=== PATIENT | female | born 1975 | race Caucasian/White ===

== ENCOUNTER 2018-08-20 16:53 | Emergency (ER) | payer MEDICAID ==
--- NOTE | 2018-08-20 17:04 | EDM.PDOCBH ---
ED HPI GENERAL MEDICAL PROBLEM - General Chief Complaint: Behavioral/Psych Stated Complaint: MENTAL HEALTH/MEDICAL CLEAR. Time Seen by Provider: 08/20/18 17:03 Source of Information: Reports: Patient History Limitations: Reports: No Limitations - History of Present Illness INITIAL COMMENTS - FREE TEXT/NARRATIVE: HISTORY AND PHYSICAL: History of present illness: Patient is a 42-year-old female who is brought to the emergency room by EMS with suicidal ideations. Today is the 9 year anniversary of her son's . She states that she has had thoughts of suicide for the past year and worsened over the past 2 months. [place] she states she wanted to take a knife and slit her wrists and find medications to overdose on. Law enforcement and EMS brought the patient to the emergency room. She is tearful but cooperative. She states that if she were to leave our facility she would "find a way to do it". She does have a history of depression and previous suicide attempts. Review of systems: As per history of present illness and below otherwise all systems reviewed and negative. Past medical history: As per history of present illness and as reviewed below otherwise noncontributory. Surgical history: As per history of present illness and as reviewed below otherwise noncontributory. Social history: See social history for further information Family history: As per history of present illness and as reviewed below otherwise noncontributory. Physical exam: General: Well-developed and well-nourished 42-year-old female. Alert and oriented. Tearful, but nontoxic appearing and in no acute distress. HEENT: Atraumatic, normocephalic, pupils equal and reactive bilaterally, negative for conjunctival pallor or scleral icterus, mucous membranes moist, TMs normal bilaterally, throat clear, neck supple, nontender, trachea midline. No drooling or trismus noted. No meningeal signs. No hot potato voice noted. Lungs: Clear to auscultation, breath sounds equal bilaterally, chest nontender. Heart: S1S2, regular rate and rhythm without overt murmur Abdomen: Soft, nondistended, nontender. Negative for masses or hepatosplenomegaly. Negative for costovertebral tenderness. Pelvis: Stable nontender. Genitourinary: Deferred. Rectal: Deferred. Skin: Intact, warm, dry. No lesions or rashes noted. Extremities: Atraumatic, negative for cords or calf pain. Neurovascular unremarkable. Neuro: Awake, alert, oriented. Cranial nerves II through XII unremarkable. Cerebellum unremarkable. Motor and sensory unremarkable throughout. Exam nonfocal. Notes: [facility] in [place] was called, they do not have any beds available at this time. Dr Coelho, psychiatrist at , he is agreeable to accepting this patient. Patient will come by ground EMS. Patient is aware of this and cooperative. She states she no she needs some psych get her Help denies any further questions or concerns at this time. Patient is eating at the bedside. She does request Tylenol for her headache. Supportive care measures were reviewed and discussed. Voices understanding and is agreeable to plan of care. Denies any further questions or concerns at this time. Diagnostics: CBC, CMP, UA, urine , salicylate, acetaminophen, drug screening Therapeutics: None Impression: Suicidal ideation History of depression Plan: Transfer to via ground EMS. Definitive disposition and diagnosis as appropriate pending reevaluation and review of above. - Related Data Allergies Allergy/AdvReac Type Severity Reaction Status Date / Time acetaminophen [From [place]] Allergy Hives Verified 08/20/18 17:08 aspirin Allergy Bleeding Verified 08/20/18 17:08 hydrocodone [From [place]] Allergy Hives Verified 08/20/18 17:08 ibuprofen Allergy Bleeding Verified 08/20/18 17:08 metformin Allergy Vomiting Verified 08/20/18 17:08 morphine Allergy Headache Verified 08/20/18 17:08 Penicillins Allergy Hives Verified 08/20/18 17:08 Home Meds: Home Meds Dextroamphetamine/Amphetamine [Adderall] 30 mg PO DAILY 08/20/18 [History] Escitalopram Oxalate [Lexapro] 20 mg PO BEDTIME 08/20/18 [History] lamoTRIgine [Lamictal XR] 100 mg PO DAILY 08/20/18 [History] ED ROS GENERAL - Review of Systems Review Of Systems: ROS reveals no pertinent complaints other than HPI. ED EXAM, BEHAVIORAL HEALTH - Physical Exam Exam: See Below COURSE, BEHAVIORAL HEALTH COMP - Course Vital Signs: Last Vital Signs Temp 98.7 F 08/20/18 17:00 Pulse 95 08/20/18 17:46 Resp 18 08/20/18 17:46 BP 159/104 H 08/20/18 17:46 Pulse Ox 95 08/20/18 17:46 Orders, Labs, Meds: Active Orders 24 hr Category Date Time Status EKG 12 Lead [EKG Documentation Completion] [RC] STAT Care 08/20/18 17:49 Active Laboratory Tests 08/20/18 08/20/18 08/20/18 Range/Units 17:17 17:17 17:17 WBC 8.97 (4.0-11.0) K/uL RBC 4.63 (4.30-5.90) M/uL Hgb 14.2 (12.0-16.0) g/dL Hct 42.1 (36.0-46.0) % MCV 90.9 (80.0-98.0) fL MCH 30.7 (27.0-32.0) pg MCHC 33.7 (31.0-37.0) g/dL RDW Std Deviation 46.6 (28.0-62.0) fl RDW Coeff of Clement 14 (11.0-15.0) % Plt Count 281 (150-400) K/uL MPV 10.70 (7.40-12.00) fL Neut % (Auto) 63.2 (48.0-80.0) % Lymph % (Auto) 30.4 (16.0-40.0) % Gonzales % (Auto) 4.2 (0.0-15.0) % Eos % (Auto) 2.0 (0.0-7.0) % Baso % (Auto) 0.2 (0.0-1.5) % Neut # (Auto) 5.7 (1.4-5.7) K/uL Lymph # (Auto) 2.7 H (0.6-2.4) K/uL Gonzales # (Auto) 0.4 (0.0-0.8) K/uL Eos # (Auto) 0.2 (0.0-0.7) K/uL Baso # (Auto) 0.0 (0.0-0.1) K/uL Nucleated RBC % 0.0 /100WBC Nucleated RBCs # 0 K/uL Sodium 137 (136-145) mmol/L Potassium 3.7 (3.5-5.1) mmol/L Chloride 104 (98-107) mmol/L Carbon Dioxide 23.9 (21.0-32.0) mmol/L BUN 8 (7.0-18.0) mg/dL Creatinine 0.7 (0.6-1.0) mg/dL Est Cr Clr Drug Dosing 82.80 mL/min Estimated GFR (MDRD) > 60.0 ml/min Glucose 138 H (74-106) mg/dL Calcium 9.6 (8.5-10.1) mg/dL Total Bilirubin 0.5 (0.2-1.0) mg/dL AST 19 (15-37) IU/L ALT 22 (14-63) IU/L Alkaline Phosphatase 68 (46-116) U/L Total Protein 7.5 (6.4-8.2) g/dL Albumin 3.9 (3.4-5.0) g/dL Globulin 3.6 (2.6-4.0) g/dL Albumin/Globulin Ratio 1.1 (0.9-1.6) Urine Color Urine Appearance Urine pH (5.0-8.0) Ur Specific [place] (1.001-1.035) Urine Protein (NEGATIVE) mg/dL Urine Glucose (UA) (NEGATIVE) mg/dL Urine Ketones (NEGATIVE) mg/dL Urine Occult Blood (NEGATIVE) Urine Nitrite (NEGATIVE) Urine Bilirubin (NEGATIVE) Urine Urobilinogen (<2.0) EU/dL Ur Leukocyte Esterase (NEGATIVE) Urine RBC (0-2/HPF) Urine WBC (0-5/HPF) Ur Epithelial Cells (NONE-FEW) Calcium Oxalate Crystal (NEGATIVE) Urine Bacteria (NEGATIVE) Urine Mucus (NONE-MOD) Urine HCG, Qual (NEGATIVE) Salicylates 4.3 (0-20) mg/dL Urine Opiates Screen (NEGATIVE) Ur Oxycodone Screen (NEGATIVE) Urine Methadone Screen (NEGATIVE) Acetaminophen 0.0 ug/mL Ur Barbiturates Screen (NEGATIVE) Ur Phencyclidine Scrn (NEGATIVE) Ur Amphetamine Screen (NEGATIVE) U Methamphetamines Scrn (NEGATIVE) U Benzodiazepines Scrn (NEGATIVE) U Cocaine Metab Screen (NEGATIVE) U Marijuana (THC) Screen (NEGATIVE) Ethyl Alcohol <3 mg/dL 08/20/18 08/20/18 08/20/18 Range/Units 17:25 17:25 17:25 WBC (4.0-11.0) K/uL RBC (4.30-5.90) M/uL Hgb (12.0-16.0) g/dL Hct (36.0-46.0) % MCV (80.0-98.0) fL MCH (27.0-32.0) pg MCHC (31.0-37.0) g/dL RDW Std Deviation (28.0-62.0) fl RDW Coeff of Clement (11.0-15.0) % Plt Count (150-400) K/uL MPV (7.40-12.00) fL Neut % (Auto) (48.0-80.0) % Lymph % (Auto) (16.0-40.0) % Gonzales % (Auto) (0.0-15.0) % Eos % (Auto) (0.0-7.0) % Baso % (Auto) (0.0-1.5) % Neut # (Auto) (1.4-5.7) K/uL Lymph # (Auto) (0.6-2.4) K/uL Gonzales # (Auto) (0.0-0.8) K/uL Eos # (Auto) (0.0-0.7) K/uL Baso # (Auto) (0.0-0.1) K/uL Nucleated RBC % /100WBC Nucleated RBCs # K/uL Sodium (136-145) mmol/L Potassium (3.5-5.1) mmol/L Chloride (98-107) mmol/L Carbon Dioxide (21.0-32.0) mmol/L BUN (7.0-18.0) mg/dL Creatinine (0.6-1.0) mg/dL Est Cr Clr Drug Dosing mL/min Estimated GFR (MDRD) ml/min Glucose (74-106) mg/dL Calcium (8.5-10.1) mg/dL Total Bilirubin (0.2-1.0) mg/dL AST (15-37) IU/L ALT (14-63) IU/L Alkaline Phosphatase (46-116) U/L Total Protein (6.4-8.2) g/dL Albumin (3.4-5.0) g/dL Globulin (2.6-4.0) g/dL Albumin/Globulin Ratio (0.9-1.6) Urine Color YELLOW Urine Appearance HAZY Urine pH 5.5 (5.0-8.0) Ur Specific [place] >= 1.030 (1.001-1.035) Urine Protein TRACE H (NEGATIVE) mg/dL Urine Glucose (UA) NEGATIVE (NEGATIVE) mg/dL Urine Ketones NEGATIVE (NEGATIVE) mg/dL Urine Occult Blood TRACE-LYSED H (NEGATIVE) Urine Nitrite NEGATIVE (NEGATIVE) Urine Bilirubin NEGATIVE (NEGATIVE) Urine Urobilinogen 0.2 (<2.0) EU/dL Ur Leukocyte Esterase NEGATIVE (NEGATIVE) Urine RBC 0-3 (0-2/HPF) Urine WBC 0-5 (0-5/HPF) Ur Epithelial Cells MODERATE (NONE-FEW) Calcium Oxalate Crystal FEW (NEGATIVE) Urine Bacteria FEW (NEGATIVE) Urine Mucus LIGHT (NONE-MOD) Urine HCG, Qual NEGATIVE (NEGATIVE) Salicylates (0-20) mg/dL Urine Opiates Screen NEGATIVE (NEGATIVE) Ur Oxycodone Screen NEGATIVE (NEGATIVE) Urine Methadone Screen NEGATIVE (NEGATIVE) Acetaminophen ug/mL Ur Barbiturates Screen NEGATIVE (NEGATIVE) Ur Phencyclidine Scrn NEGATIVE (NEGATIVE) Ur Amphetamine Screen NEGATIVE (NEGATIVE) U Methamphetamines Scrn NEGATIVE (NEGATIVE) U Benzodiazepines Scrn NEGATIVE (NEGATIVE) U Cocaine Metab Screen NEGATIVE (NEGATIVE) U Marijuana (THC) Screen NEGATIVE (NEGATIVE) Ethyl Alcohol mg/dL Departure - Departure Time of Disposition: 18:16 Disposition: DC/Tfer to Psych Hosp/Unit 65 Clinical Impression: Suicidal ideation, Depressive disorder - Discharge Information Referrals: PCP,Unknown [Primary Care Provider] - Forms: ED Department Discharge - My Orders Last 24 Hours: My Active Orders 08/20/18 17:49 EKG 12 Lead [EKG Documentation Completion] [RC] STAT - Assessment/Plan Last 24 Hours: My Active Orders 08/20/18 17:49 EKG 12 Lead [EKG Documentation Completion] [RC] STAT
[2018-08-20 17:59] LABS: CHLORIDE,CL 104 mmol/L (98-107); SODIUM,NA 137 mmol/L (136-145)
[2018-08-20] MEDS ORDERED: Acetaminophen 500 MG Tab PO ONE (18:16)
== END 2018-08-20 20:00 ==
LOC: MW.ED 16:53
DX: F32.9 Major depressive disorder, single episode, unspecified (principal); Z79.899 Other long term (current) drug therapy
CPT/HCPCS: 36415; 80053; 80305; 81001; 81025; 85025; 93005; 99285; A9270; G0480; 99284

== ENCOUNTER 2019-08-22 17:23 | Emergency (ER) | payer MEDICAID, MEDICARE ==
--- NOTE | 2019-08-22 17:41 | EDM.PDOC ---
ED HPI GENERAL MEDICAL PROBLEM - General Chief Complaint: General Stated Complaint: MEDICAL CLEARANCE Time Seen by Provider: 08/22/19 17:29 Source of Information: Reports: Patient History Limitations: Reports: No Limitations - History of Present Illness INITIAL COMMENTS - FREE TEXT/NARRATIVE: HISTORY AND PHYSICAL: History of present illness: Patient is a 43-year-old female who presents to the emergency room with law enforcement for medical clearance exam. Patient states that she does not want to be here and declines needing an exam. Law enforcement states they have no concerns other than the patient states she might be diabetic. Patient reports that she was told a few years ago that she should be on metformin, although does not take diabetic medications or check her blood sugar for any reasons. She states she is in good health and has no complaints or concerns. Review of systems: As per history of present illness and below otherwise all systems reviewed and negative. Past medical history: As per history of present illness and as reviewed below otherwise noncontributory. Surgical history: As per history of present illness and as reviewed below otherwise noncontributory. Social history: See social history for further information Family history: As per history of present illness and as reviewed below otherwise noncontributory. Physical exam: General: HEENT: Atraumatic, normocephalic, pupils equal and reactive bilaterally, negative for conjunctival pallor or scleral icterus, mucous membranes moist, trachea midline. No drooling or trismus noted. No meningeal signs. No hot potato voice noted. Lungs: Clear to auscultation, breath sounds equal bilaterally, chest nontender. Heart: S1S2, regular rate and rhythm without overt murmur Abdomen: Soft, nondistended, nontender. Pelvis: Stable nontender. Skin: Intact, warm, dry. No lesions or rashes noted. Extremities: Atraumatic, moves all extremities per self without difficulty or deficits, negative for cords or calf pain. Neurovascular unremarkable. Neuro: Awake, alert, oriented. Cranial nerves II through XII unremarkable. Cerebellum unremarkable. Motor and sensory unremarkable throughout. Exam nonfocal. Notes: Patient has her home medications with her to bring with to [facility]. Her vital signs are stable. She declines wanting any further medical evaluation or treatment. Supportive care measures were reviewed and discussed. Voices understanding and is agreeable to plan of care. Denies any further questions or concerns at this time. Diagnostics: None Therapeutics: None Prescription: None Impression: Encounter for medical screening exam Plan: 1. Take your home medications as prescribed. 2. Follow-up with your primary care provider as we discussed. 3. Turn to the ED as needed and as discussed. Definitive disposition and diagnosis as appropriate pending reevaluation and review of above. right shoulder Pain Score (Numeric/FACES): 5 - Related Data Allergies Allergy/AdvReac Type Severity Reaction Status Date / Time acetaminophen [From [place]] Allergy Hives Verified 08/22/19 17:34 aspirin Allergy Bleeding Verified 08/22/19 17:34 banana Allergy Hives Verified 08/22/19 17:34 hydrocodone [From [place]] Allergy Hives Verified 08/22/19 17:34 ibuprofen Allergy Bleeding Verified 08/22/19 17:34 latex Allergy Hives Verified 08/22/19 17:34 metformin Allergy Vomiting Verified 08/22/19 17:34 morphine Allergy Headache Verified 08/22/19 17:34 Penicillins Allergy Hives Verified 08/22/19 17:34 tape Allergy Hives Uncoded 08/22/19 17:34 Home Meds: Home Meds Dextroamphetamine/Amphetamine [Adderall] 30 mg PO BID 08/20/18 [History] Escitalopram Oxalate [Lexapro] 20 mg PO BEDTIME 08/20/18 [History] lamoTRIgine [Lamictal XR] 100 mg PO DAILY 08/20/18 [History] Losartan/Hydrochlorothiazide [Losartan-HCTZ 50-12.5 MG] 1 tab PO DAILY 08/22/19 [History] traZODone HCl [Trazodone HCl] 50 mg PO BEDTIME 08/22/19 [History] Past Medical History Cardiovascular History: Reports: Hypertension Gastrointestinal History: Reports: GI Bleed [employer] History: Reports: Psychiatric History: Reports: Anxiety, Depression, PTSD Endocrine/Metabolic History: Reports: Diabetes, Type II Hematologic History: Reports: Anemia, Blood Transfusion(s) - Infectious Disease History Infectious Disease History: Reports: Chicken Pox - Past Surgical History GI Surgical History: Reports: Cholecystectomy, Hernia Repair/Other Social & Family History - Family History Family Medical History: Noncontributory - Tobacco Use Smoking Status *Q: Current Every Day Smoker Years of Tobacco use: 20 Packs/Tins Daily: 1 - Recreational Drug Use Recreational Drug Use: No ED ROS GENERAL - Review of Systems Review Of Systems: Comprehensive ROS is negative, except as noted in HPI. ED EXAM, GENERAL - Physical Exam Exam: See Below (See dictation) Course - Vital Signs Last Recorded V/S: Last Vital Signs Temp 96.6 F L 08/22/19 17:31 Pulse 109 H 08/22/19 17:31 Resp 18 08/22/19 17:31 BP 142/80 H 08/22/19 17:31 Pulse Ox 98 08/22/19 17:31 Departure - Departure Time of Disposition: 17:58 Disposition: Home, Self-Care 01 Clinical Impression: Encounter for medical screening examination - Discharge Information Forms: ED Department Discharge Additional Instructions: The following information is given to patients seen in the emergency department who are being discharged to home. This information is to outline your options for follow-up care. We provide all patients seen in our emergency department with a follow-up referral. The need for follow-up, as well as the timing and circumstances, are variable depending upon the specifics of your emergency department visit. If you don't have a primary care physician on staff, we will provide you with a referral. We always advise you to contact your personal physician following an emergency department visit to inform them of the circumstance of the visit and for follow-up with them and/or the need for any referrals to a consulting specialist. The emergency department will also refer you to a specialist when appropriate. This referral assures that you have the opportunity for follow-up care with a specialist. All of these measure are taken in an effort to provide you with optimal care, which includes your follow-up. Under all circumstances we always encourage you to contact your private physician who remains a resource for coordinating your care. When calling for follow-up care, please make the office aware that this follow-up is from your recent emergency room visit. If for any reason you are refused follow-up, please contact the [facility] Emergency Department at and asked to speak to the emergency department charge nurse. [facility] [address] [place] [id number] [address] 1. Take your home medications as prescribed. 2. Follow-up with your primary care provider as we discussed. 3. Turn to the ED as needed and as discussed. Sepsis Event Note - Evaluation Sepsis Screening Result: No Definite Risk - Focused Exam Vital Signs: Vital Signs Temp Pulse Resp BP Pulse Ox 08/22/19 17:31 96.6 F L 109 H 18 142/80 H 98 Date Exam was Performed: 08/22/19 Time Exam was Performed: 17:59
== END 2019-08-22 18:09 | disposition home or self-care (01) ==
LOC: MW.ED 17:23
DX: Z02.89 Encounter for other administrative examinations (principal); I10 Essential (primary) hypertension; E11.9 Type 2 diabetes mellitus without complications; F41.9 Anxiety disorder, unspecified; F32.9 Major depressive disorder, single episode, unspecified; F17.210 Nicotine dependence, cigarettes, uncomplicated; Z88.8 Allergy status to other drugs, medicaments and biological substances; Z91.040 Latex allergy status; Z88.0 Allergy status to penicillin; Z91.018 Allergy to other foods; Z88.5 Allergy status to narcotic agent; Z79.899 Other long term (current) drug therapy
CPT/HCPCS: 99283

== ENCOUNTER 2020-04-06 13:54 | Emergency (ER) | payer MEDICARE ==
[2020-04-06] MEDS ORDERED: Sodium Chloride 0.9% 2.5 ML Syringe FLUSH PRN (14:22)
[2020-04-06] MEDS ORDERED: Sodium Chloride 0.9% 10 ML Syringe FLUSH PRN (14:22)
--- NOTE | 2020-04-06 14:26 | EDM.PDOC ---
ED HPI GENERAL MEDICAL PROBLEM - General Chief Complaint: Abdominal Pain Stated Complaint: ABDOMINAL PAIN Time Seen by Provider: 04/06/20 14:01 Source of Information: Reports: Patient History Limitations: Reports: No Limitations - History of Present Illness INITIAL COMMENTS - FREE TEXT/NARRATIVE: 44F PMHx depression, suicide attempts, anxiety, chronic abdominal pain, umbilical hernia repair roughly 4 months ago presents for acute exacerbation of chronic abdominal pain. Patient states "I just can't take it anymore" and "the pain is really making my depression worse". The pain is diffuse and worse in RLQ abdomen. Not any worse or better w/ food. Associated with nausea without vomiting. Worse with movement and pressing in on it. No urinary symptoms but was told at an outside ER last week that she had a UTI but they didn't give her antibiotics. No fevers. ABD Pain Score (Numeric/FACES): 10 - Related Data Allergies Allergy/AdvReac Type Severity Reaction Status Date / Time acetaminophen [From Iselin] Allergy Hives Verified 04/06/20 14:24 aspirin Allergy Bleeding Verified 04/06/20 14:24 banana Allergy Hives Verified 04/06/20 14:24 hydrocodone [From Iselin] Allergy Hives Verified 04/06/20 14:24 ibuprofen Allergy Bleeding Verified 04/06/20 14:24 latex Allergy Hives Verified 04/06/20 14:24 metformin Allergy Vomiting Verified 04/06/20 14:24 morphine Allergy Headache Verified 04/06/20 14:24 Penicillins Allergy Hives Verified 04/06/20 14:24 tape Allergy Hives Uncoded 04/06/20 14:24 Home Meds: Home Meds Dextroamphetamine/Amphetamine [Adderall] 30 mg PO BID 08/20/18 [History] Escitalopram Oxalate [Lexapro] 20 mg PO BEDTIME 08/20/18 [History] lamoTRIgine [Lamictal XR] 100 mg PO DAILY 08/20/18 [History] Losartan/Hydrochlorothiazide [Losartan-HCTZ 50-12.5 MG] 1 tab PO DAILY 08/22/19 [History] traZODone HCl [Trazodone HCl] 50 mg PO BEDTIME 08/22/19 [History] Sulfamethoxazole/Trimethoprim [Bactrim Ds Tablet] 1 each PO BID 7 Days #14 tablet 04/06/20 [Rx] Past Medical History Cardiovascular History: Reports: Hypertension Gastrointestinal History: Reports: GI Bleed 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: Psychiatric History: Reports: Bipolar, Depression Endocrine/Metabolic History: Reports: Diabetes, Type II Hematologic History: Reports: Anemia, Blood Transfusion(s) - Infectious Disease History Infectious Disease History: Reports: Chicken Pox - Past Surgical History GI Surgical History: Reports: Hernia Repair/Other Social & Family History - Family History Family Medical History: Noncontributory ED ROS GENERAL - Review of Systems Review Of Systems: Comprehensive ROS is negative, except as noted in HPI. ED EXAM, GENERAL - Physical Exam Exam: See Below Exam Limited By: No Limitations General Appearance: Alert, WD/WN, No Apparent Distress, Anxious Ears: Normal External Exam Nose: Normal Inspection Throat/Mouth: Normal Voice, No Airway Compromise Head: Atraumatic, Normocephalic Neck: Normal Inspection Respiratory/Chest: No Respiratory Distress, No Accessory Muscle Use Cardiovascular: Normal Peripheral Pulses GI/Abdominal: Soft, Non-Tender, No Distention (Female) Exam: Normal External Exam Rectal (Female) Exam: Normal Exam Back Exam: Normal Inspection Extremities: Normal Inspection Neurological: Alert Psychiatric: Normal Affect, Anxious Skin Exam: Warm, Dry, Intact, Normal Color Course - Vital Signs Last Recorded V/S: Last Vital Signs Temp 97.2 F 04/06/20 14:21 Pulse 92 04/06/20 14:21 Resp 16 04/06/20 14:21 BP 164/74 H 04/06/20 14:21 Pulse Ox 96 04/06/20 14:21 - Orders/Labs/Meds Orders: Active Orders 24 hr Category Date Time Status Sodium Chloride 0.9% [Saline Flush] Med 04/06/20 14:22 Active 10 ml FLUSH ASDIRECTED PRN Sodium Chloride 0.9% [Saline Flush] Med 04/06/20 14:22 Active 2.5 ml FLUSH ASDIRECTED PRN Saline Lock Insert [OM.PC] Stat Oth 04/06/20 14:22 Ordered Medication Orders Sodium Chloride (Saline Flush) 10 ml FLUSH ASDIRECTED PRN PRN Reason: Keep Vein Open Last Admin: 04/06/20 14:32 Dose: 10 ml Documented by: MARYAM Sodium Chloride (Saline Flush) 2.5 ml FLUSH ASDIRECTED PRN PRN Reason: Keep Vein Open Last Admin: 04/06/20 14:32 Dose: 2.5 ml Documented by: MARYAM Labs: Laboratory Tests 04/06/20 04/06/20 04/06/20 Range/Units 14:30 14:30 14:30 WBC 13.18 H (4.0-11.0) K/uL RBC 4.78 (4.30-5.90) M/uL Hgb 14.3 (12.0-16.0) g/dL Hct 44.0 (36.0-46.0) % MCV 92.1 (80.0-98.0) fL MCH 29.9 (27.0-32.0) pg MCHC 32.5 (31.0-37.0) g/dL RDW Std Deviation 47.3 (28.0-62.0) fl RDW Coeff of Clement 14 (11.0-15.0) % Plt Count 327 (150-400) K/uL MPV 10.50 (7.40-12.00) fL Neut % (Auto) 71.9 (48.0-80.0) % Lymph % (Auto) 20.9 (16.0-40.0) % [place] % (Auto) 4.6 (0.0-15.0) % Eos % (Auto) 2.4 (0.0-7.0) % Baso % (Auto) 0.2 (0.0-1.5) % Neut # (Auto) 9.5 H (1.4-5.7) K/uL Lymph # (Auto) 2.8 H (0.6-2.4) K/uL [place] # (Auto) 0.6 (0.0-0.8) K/uL Eos # (Auto) 0.3 (0.0-0.7) K/uL Baso # (Auto) 0.0 (0.0-0.1) K/uL Nucleated RBC % 0.0 /100WBC Nucleated RBCs # 0 K/uL Lactate 1.2 (0.20-2.00) mmol/L Sodium 138 (136-145) mmol/L Potassium 4.2 (3.5-5.1) mmol/L Chloride 104 (98-107) mmol/L Carbon Dioxide 23.9 (21.0-32.0) mmol/L BUN 10 (7.0-18.0) mg/dL Creatinine 0.8 (0.6-1.0) mg/dL Est Cr Clr Drug Dosing 70.98 mL/min Estimated GFR (MDRD) > 60.0 ml/min Glucose 145 H (74-106) mg/dL Calcium 8.9 (8.5-10.1) mg/dL Magnesium 1.8 (1.8-2.4) mg/dL Total Bilirubin 0.6 (0.2-1.0) mg/dL AST 13 L (15-37) IU/L ALT 26 (14-63) IU/L Alkaline Phosphatase 70 (46-116) U/L Total Protein 7.7 (6.4-8.2) g/dL Albumin 4.0 (3.4-5.0) g/dL Globulin 3.7 (2.6-4.0) g/dL Albumin/Globulin Ratio 1.1 (0.9-1.6) Lipase 72 L (73-393) U/L Urine Color Urine Appearance Urine pH (5.0-8.0) Ur Specific Gallagher (1.001-1.035) Urine Protein (NEGATIVE) mg/dL Urine Glucose (UA) (NEGATIVE) mg/dL Urine Ketones (NEGATIVE) mg/dL Urine Occult Blood (NEGATIVE) Urine Nitrite (NEGATIVE) Urine Bilirubin (NEGATIVE) Urine Ictotest Urine Urobilinogen (<2.0) EU/dL Ur Leukocyte Esterase (NEGATIVE) Urine RBC (0-2/HPF) Urine WBC (0-5/HPF) Ur Epithelial Cells (NONE-FEW) Urine Bacteria (NEGATIVE) Urine Trichomonas (NEGATIVE) Urine HCG, Qual (NEGATIVE) 04/06/20 04/06/20 Range/Units 15:10 15:10 WBC (4.0-11.0) K/uL RBC (4.30-5.90) M/uL Hgb (12.0-16.0) g/dL Hct (36.0-46.0) % MCV (80.0-98.0) fL MCH (27.0-32.0) pg MCHC (31.0-37.0) g/dL RDW Std Deviation (28.0-62.0) fl RDW Coeff of Clement (11.0-15.0) % Plt Count (150-400) K/uL MPV (7.40-12.00) fL Neut % (Auto) (48.0-80.0) % Lymph % (Auto) (16.0-40.0) % [place] % (Auto) (0.0-15.0) % Eos % (Auto) (0.0-7.0) % Baso % (Auto) (0.0-1.5) % Neut # (Auto) (1.4-5.7) K/uL Lymph # (Auto) (0.6-2.4) K/uL [place] # (Auto) (0.0-0.8) K/uL Eos # (Auto) (0.0-0.7) K/uL Baso # (Auto) (0.0-0.1) K/uL Nucleated RBC % /100WBC Nucleated RBCs # K/uL Lactate (0.20-2.00) mmol/L Sodium (136-145) mmol/L Potassium (3.5-5.1) mmol/L Chloride (98-107) mmol/L Carbon Dioxide (21.0-32.0) mmol/L BUN (7.0-18.0) mg/dL Creatinine (0.6-1.0) mg/dL Est Cr Clr Drug Dosing mL/min Estimated GFR (MDRD) ml/min Glucose (74-106) mg/dL Calcium (8.5-10.1) mg/dL Magnesium (1.8-2.4) mg/dL Total Bilirubin (0.2-1.0) mg/dL AST (15-37) IU/L ALT (14-63) IU/L Alkaline Phosphatase (46-116) U/L Total Protein (6.4-8.2) g/dL Albumin (3.4-5.0) g/dL Globulin (2.6-4.0) g/dL Albumin/Globulin Ratio (0.9-1.6) Lipase (73-393) U/L Urine Color DARK YELLOW Urine Appearance CLOUDY Urine pH 5.5 (5.0-8.0) Ur Specific Gallagher >= 1.030 (1.001-1.035) Urine Protein 100 H (NEGATIVE) mg/dL Urine Glucose (UA) NEGATIVE (NEGATIVE) mg/dL Urine Ketones TRACE H (NEGATIVE) mg/dL Urine Occult Blood LARGE H (NEGATIVE) Urine Nitrite NEGATIVE (NEGATIVE) Urine Bilirubin MODERATE H (NEGATIVE) Urine Ictotest NEGATIVE Urine Urobilinogen 0.2 (<2.0) EU/dL Ur Leukocyte Esterase SMALL H (NEGATIVE) Urine RBC TOO NUMEROUS TO CT H (0-2/HPF) Urine WBC 5-10 (0-5/HPF) Ur Epithelial Cells MODERATE (NONE-FEW) Urine Bacteria 3+ H (NEGATIVE) Urine Trichomonas PRESENT (NEGATIVE) Urine HCG, Qual NEGATIVE (NEGATIVE) Meds: Medications Generic Name Dose Route Start Last Admin Trade Name Freq PRN Reason Stop Dose Admin Sodium Chloride 10 ml 04/06/20 14:22 04/06/20 14:32 Saline Flush FLUSH 10 ml ASDIRECTED PRN Administration Keep Vein Open Sodium Chloride 2.5 ml 04/06/20 14:22 04/06/20 14:32 Saline Flush FLUSH 2.5 ml ASDIRECTED PRN Administration Keep Vein Open Discontinued Medications Generic Name Dose Route Start Last Admin Trade Name Freq PRN Reason Stop Dose Admin Hydromorphone HCl 1 mg 04/06/20 14:38 04/06/20 14:52 Dilaudid IVPUSH 04/06/20 14:39 1 mg ONETIME ONE Administration Sodium Chloride 1,000 mls @ 999 mls/hr 04/06/20 14:41 04/06/20 14:53 Normal Saline IV 04/06/20 15:41 999 mls/hr .Bolus ONE Administration Iopamidol 100 ml 04/06/20 15:46 04/06/20 15:47 Isovue Multipack-370 (76%) IVPUSH 04/06/20 15:47 100 ml ONETIME ONE Administration Metronidazole 2,000 mg 04/06/20 15:58 Metronidazole PO 04/06/20 15:59 NOW ONE Ondansetron HCl 4 mg 04/06/20 14:38 04/06/20 14:52 Zofran IVPUSH 04/06/20 14:39 4 mg ONETIME ONE Administration - Re-Assessments/Exams Free Text/Narrative Re-Assessment/Exam: 04/06/20 14:41 Will get labs, CT imaging, UA, Upreg. Will treat pain with dilaudid and zofran. Departure - Departure Time of Disposition: 16:18 Disposition: Home, Self-Care 01 Condition: Good Clinical Impression: H/O trichomonal vaginitis UTI (urinary tract infection) Qualifiers: Urinary tract infection type: acute cystitis Hematuria presence: with hematuria Qualified Code(s): N30.01 - Acute cystitis with hematuria - Discharge Information Prescriptions: Sulfamethoxazole/Trimethoprim [Bactrim Ds Tablet] 1 each PO BID 7 Days #14 tablet Referrals: PCP,None [Primary Care Provider] - Forms: ED Department Discharge Additional Instructions: The following information is given to patients seen in the emergency department who are being discharged to home. This information is to outline your options for follow-up care. We provide all patients seen in our emergency department with a follow-up referral. The need for follow-up, as well as the timing and circumstances, are variable depending upon the specifics of your emergency department visit. If you don't have a primary care physician on staff, we will provide you with a referral. We always advise you to contact your personal physician following an emergency department visit to inform them of the circumstance of the visit and for follow-up with them and/or the need for any referrals to a consulting specialist. The emergency department will also refer you to a specialist when appropriate. This referral assures that you have the opportunity for follow-up care with a specialist. All of these measure are taken in an effort to provide you with optimal care, which includes your follow-up. Under all circumstances we always encourage you to contact your private physician who remains a resource for coordinating your care. When calling for fo llow-up care, please make the office aware that this follow-up is from your recent emergency room visit. If for any reason you are refused follow-up, please contact the [facility] Emergency Department at and asked to speak to the emergency department charge nurse. Please follow up with your primary care physician. If you do not have a primary care physician, see below: [facility] [address] [place] [id number] [facility] [address] [place] [address] GI specialist in [place]: [place] [address] [place] [address] Sepsis Event Note (ED) - Evaluation Sepsis Screening Result: No Definite Risk - Focused Exam Vital Signs: Vital Signs Temp Pulse Resp BP Pulse Ox 04/06/20 14:21 97.2 F 92 16 164/74 H 96 - My Orders Last 24 Hours: My Active Orders 04/06/20 14:22 Sodium Chloride 0.9% [Saline Flush] 10 ml FLUSH ASDIRECTED PRN Sodium Chloride 0.9% [Saline Flush] 2.5 ml FLUSH ASDIRECTED PRN Saline Lock Insert [OM.PC] Stat - Assessment/Plan Last 24 Hours: My Active Orders 04/06/20 14:22 Sodium Chloride 0.9% [Saline Flush] 10 ml FLUSH ASDIRECTED PRN Sodium Chloride 0.9% [Saline Flush] 2.5 ml FLUSH ASDIRECTED PRN Saline Lock Insert [OM.PC] Stat
[2020-04-06] MEDS ORDERED: Ondansetron 4 MG/2 ML SDV IVPUSH ONE (14:38)
[2020-04-06] MEDS ORDERED: HYDROmorphone 1 MG/ML Syringe IVPUSH ONE (14:38)
[2020-04-06] MEDS ORDERED: Sodium Chloride 0.9% 1,000 ML IV ONE (14:41)
[2020-04-06 14:57] LABS: BLOOD UREA NITROGEN,BUN 10 mg/dL (7.0-18.0); CARBON DIOXIDE,CO2 23.9 mmol/L (21.0-32.0); CHLORIDE,CL 104 mmol/L (98-107); GLUCOSE RANDOM 145 mg/dL (74-106); LIPASE 72 U/L (73-393); POTASSIUM,K 4.2 mmol/L (3.5-5.1); SODIUM,NA 138 mmol/L (136-145)
[2020-04-06] MEDS ORDERED: Iopamidol 755 MG/ML 500 ML Multipack Bottle IVPUSH ONE (15:46)
[2020-04-06] MEDS ORDERED: metroNIDAZOLE 250 MG Tab PO ONE (15:58)
--- NOTE | 2020-04-06 16:05 | CT ---
Indication: Chronic abdominal pain worsening over the last few days. History of hernia repair in January. Worsening pain in the right lower quadrant. Technique: Multiple contiguous axial images were obtained from the lung bases through the symphysis pubis after the intravenous administration of 100 cc Isovue 370. Please note that all CT scans at this facility use dose modulation, iterative reconstruction, and/or weight-based dosing when appropriate to reduce radiation dose to as low as reasonably achievable. Comparison: None Findings: The lung bases are clear. No infiltrate, pleural effusion, or pneumothorax is identified. The heart is normal in size. No pericardial effusions identified. Diffuse fatty infiltration of the liver is identified. No intrahepatic biliary ductal dilatation is identified. The liver, spleen, pancreas, adrenals, and kidneys are normal. Postsurgical changes of a cholecystectomy are identified. Extrahepatic biliary ductal dilatation is identified most likely due to the previous cholecystectomy. A calculus is identified within the right renal pelvis measuring 22 mm in size. No hydronephrosis is identified. In the pelvis, the uterus is grossly normal. Both ovaries are grossly normal. The bladder is normal. The small and large bowel are normal in caliber. Sigmoid diverticulosis is identified. There is no evidence of diverticulitis. The appendix is not clearly identified, but no inflammatory changes are identified in the right lower quadrant. The aorta is normal in caliber. No free air or free fluid is identified within the abdomen or pelvis. Mild fat stranding is identified just deep to the anterior abdominal wall, just superior to the level of the previous hernia which is been repaired at the level of the umbilicus. Impression: Mild inflammatory changes identified just superior to the level of the umbilicus in the far anterior abdomen, just deep to the anterior abdominal wall. No abscess is identified. This may represent an infectious/inflammatory process. Calculus identified within the right renal pelvis with no evidence of hydronephrosis. Mild diffuse fatty infiltration of the liver Please note that all CT scans at this facility use dose modulation, iterative reconstruction, and/or weight-based dosing when appropriate to reduce radiation dose to as low as reasonably achievable. Dictated by Adore Dyer MD @ Apr 06 2020 3:59PM Signed by Dr. Adore Dyer @ Apr 06 2020 4:04PM
[2020-04-06] MEDS ORDERED: Sulfamethoxazole/Trimethoprim 800-160 MG Tab PO ONE (16:21)
== END 2020-04-06 16:57 | disposition home or self-care (01) ==
LOC: MW.ED 13:54
DX: N30.01 Acute cystitis with hematuria (principal); A59.01 Trichomonal vulvovaginitis; F31.9 Bipolar disorder, unspecified; I10 Essential (primary) hypertension; E11.9 Type 2 diabetes mellitus without complications; Z88.6 Allergy status to analgesic agent; Z91.018 Allergy to other foods; Z88.5 Allergy status to narcotic agent; Z91.040 Latex allergy status; Z88.8 Allergy status to other drugs, medicaments and biological substances; Z88.0 Allergy status to penicillin; Z91.048 Other nonmedicinal substance allergy status; Z79.899 Other long term (current) drug therapy
CPT/HCPCS: 36415; 74177; 80053; 81001; 81025; 83605; 83690; 83735; 85025; 96361; 96374; 96375; 99284; A9270; J1170; J2405; J7030; Q9967

== ENCOUNTER 2020-04-19 13:12 | Emergency (ER) | payer MEDICARE ==
[2020-04-19] MEDS ORDERED: Sodium Chloride 0.9% 1,000 ML IV ONE (15:18)
[2020-04-19] MEDS ORDERED: HYDROmorphone 1 MG/ML Syringe IVPUSH ONE ×2 (15:18→16:47)
[2020-04-19] MEDS ORDERED: Ketorolac 30 MG/ML SDV IVPUSH ONE (15:18)
[2020-04-19] MEDS ORDERED: Ondansetron 4 MG/2 ML SDV IVPUSH ONE (15:18)
--- NOTE | 2020-04-19 15:19 | EDM.PDOC ---
ED HPI GENERAL MEDICAL PROBLEM - General Chief Complaint: Abdominal Pain Stated Complaint: RIGHT SIDE PAIN Time Seen by Provider: 04/19/20 13:12 Source of Information: Reports: Patient (13) History Limitations: Reports: No Limitations - History of Present Illness INITIAL COMMENTS - FREE TEXT/NARRATIVE: HISTORY AND PHYSICAL: History of present illness: Patient is a 44-year-old female who presents to the emergency room with complaints of right lower quadrant pain started this morning. She states she has had chronic abdominal pain which she has seen several providers for in the past. Most recently she had an umbilical hernia which was repaired earlier this year by . She states even after having the umbilical hernia repaired she continued to have abdominal pain, (states its in various places... upper, lower, left, right). She has had referrals to GI specialist although has never followed up. Right lower quadrant pain is chronic to her although states it was worse this morning. She called the ambulance to bring her to the emergency room as she did not have a ride, states she is homeless (currently staying with a friend). Has associated nausea without vomiting. Patient denies any fever, chills, headache, change in vision, syncope or near syncope. Denies any chest pain, back pain, shortness of breath or cough. Denies any diarrhea, constipation or dysuria. She reports she was treated for UTI approximately 2 weeks ago. Has not noted any blood in urine or stool. States she is just finishing her menstrual period, no concerns of . Denies any vaginal discharge or concerns of STDs. Review of systems: As per history of present illness and below otherwise all systems reviewed and negative. Past medical history: As per history of present illness and as reviewed below otherwise noncontributory. Surgical history: As per history of present illness and as reviewed below otherwise noncontributory. Social history: See social history for further information Family history: As per history of present illness and as reviewed below otherwise noncontributory. Physical exam: General: Well developed and well nourished. Alert and orientated x 3. Nontoxic in appearance, anxious but in no acute distress. Vital signs are stable and have been reviewed by me. Nursing notes were reviewed. Arrived via EMS. HEENT: Atraumatic, normocephalic, pupils equal and reactive bilaterally, negative for conjunctival pallor or scleral icterus, mucous membranes moist, trachea midline. No drooling or trismus noted. No meningeal signs. No hot potato voice noted. Lungs: Clear to auscultation, breath sounds equal bilaterally, chest nontender. Normal work of breathing, no accessory muscles used. Heart: S1S2, regular rate and rhythm without overt murmur Abdomen: Soft, nondistended, generalized tenderness throughout, increased tenderness in RLQ without rebound tenderness. + Obesity. Negative for masses or hepatosplenomegaly. Negative for costovertebral tenderness. Pelvis: Stable nontender. Skin: Intact, warm, dry. No lesions or rashes noted. Hematologic: No petechiae or purpra. Mucosa appropriate color and normal nail bed color and refill. Extremities: Atraumatic, moves all extremities per self without difficulty or deficits, negative for cords or calf pain. Neurovascular unremarkable. Neuro: Awake, alert, oriented. Cranial nerves II through XII unremarkable. Cerebellum unremarkable. Motor and sensory unremarkable throughout. Exam nonfocal. Psychiatric: Mood and affect are appropriate. Normal thought process. Answering questions appropriately. Notes: Patient was seen on 04/06/2020: Had a UTI and trichomonas treated with Bactrim and Flagyl. Unsure if she took the prescribed antibiotic, "I don't remember what they gave me". CT shows a 2 centimeter x 0.9 centimeter right renal pelvic stone with mild focal dilatation of the renal pelvis. Normal appendix. Fatty liver. Tiny fat containing umbilical hernia with mild inflammatory change within the adjacent soft tissues. I have spoken with the patient and discussed today's findings, in addition to providing specific details for plan of care. Throughout the patient's ER stay she requests Dilaudid multiple times. I do note in her previous ER visits she also requests Dilaudid and prescriptions for pain medications. Patient does admit that this is chronic abdominal pain but fluctuates in intensity, has been going on for over a year. She has had multiple referrals to the GI specialist which she states she has not followed up with. Patient has remained stable throughout the entire ED visit and we discussed the importance of following up with a GI specialist regarding her acute on chronic pain. The patient is stable for discharge, counseling was provided and we discussed in great detail signs and symptoms that would prompt them to return to the Emergency Department. Medication, follow up and supportive care measures were reviewed and discussed. Voices understanding and is agreeable to plan of care. Denies any further questions or concerns at this time. Diagnostics: CBC, CMP, UA, urine , lipase, CT abdomen and pelvis Therapeutics: IV fluid, Zofran, Dilaudid Toradol Prescription: Cipro Impression: Chronic abdominal pain UTI Plan: 1. Today your lab work is normal with the exception of UTI. You need to take the antibiotic as prescribed. Increase your oral fluids. 2. Take your home medication as directed. 3. We encourage you to follow up with your primary care provider and GI specialist in the next few days for re-evaluation and further care/management. If your symptoms should worsen, new symptoms develop or any of the signs and symptoms we discussed should arise please return to the emergency room or call 911 (if needed). Definitive disposition and diagnosis as appropriate pending reevaluation and review of above. Abdominal Pain Score (Numeric/FACES): 9 - Related Data Allergies Allergy/AdvReac Type Severity Reaction Status Date / Time acetaminophen [From [place]] Allergy Hives Verified 04/19/20 15:31 aspirin Allergy Bleeding Verified 04/19/20 15:31 banana Allergy Hives Verified 04/19/20 15:31 hydrocodone [From [place]] Allergy Hives Verified 04/19/20 15:31 ibuprofen Allergy Bleeding Verified 04/19/20 15:31 latex Allergy Hives Verified 04/19/20 15:31 metformin Allergy Vomiting Verified 04/19/20 15:31 morphine Allergy Headache Verified 04/19/20 15:31 Penicillins Allergy Hives Verified 04/19/20 15:31 tape Allergy Hives Uncoded 04/19/20 15:31 Home Meds: Home Meds Dextroamphetamine/Amphetamine [Adderall] 30 mg PO BID 08/20/18 [History] Escitalopram Oxalate [Lexapro] 20 mg PO BEDTIME 08/20/18 [History] lamoTRIgine [Lamictal XR] 100 mg PO DAILY 08/20/18 [History] Losartan/Hydrochlorothiazide [Losartan-HCTZ 50-12.5 MG] 1 tab PO DAILY 08/22/19 [History] traZODone HCl [Trazodone HCl] 50 mg PO BEDTIME 08/22/19 [History] Sulfamethoxazole/Trimethoprim [Bactrim Ds Tablet] 1 each PO BID 7 Days #14 tablet 04/06/20 [Rx] Ciprofloxacin HCl [Cipro] 500 mg PO BID 7 Days #14 tablet 04/19/20 [Rx] Past Medical History Cardiovascular History: Reports: Hypertension Gastrointestinal History: Reports: GI Bleed 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 ED EXAM, GI/ABD - Physical Exam Exam: See Below (See dictation) Course - Vital Signs Last Recorded V/S: Last Vital Signs Temp 96.0 F L 04/19/20 13:15 Pulse 76 04/19/20 17:03 Resp 16 04/19/20 17:03 BP 123/89 04/19/20 17:03 Pulse Ox 93 L 04/19/20 17:03 - Orders/Labs/Meds Orders: Active Orders 24 hr Category Date Time Status CULTURE URINE [RM] Stat Lab 04/19/20 16:27 Received Labs: Laboratory Tests 04/19/20 04/19/20 04/19/20 Range/Units 13:20 13:20 16:27 WBC 9.73 (4.0-11.0) K/uL RBC 4.53 (4.30-5.90) M/uL Hgb 13.9 (12.0-16.0) g/dL Hct 41.7 (36.0-46.0) % MCV 92.1 (80.0-98.0) fL MCH 30.7 (27.0-32.0) pg MCHC 33.3 (31.0-37.0) g/dL RDW Std Deviation 46.8 (28.0-62.0) fl RDW Coeff of Clement 14 (11.0-15.0) % Plt Count 301 (150-400) K/uL MPV 10.80 (7.40-12.00) fL Neut % (Auto) 66.2 (48.0-80.0) % Lymph % (Auto) 27.4 (16.0-40.0) % Talbot % (Auto) 4.5 (0.0-15.0) % Eos % (Auto) 1.7 (0.0-7.0) % Baso % (Auto) 0.2 (0.0-1.5) % Neut # (Auto) 6.4 H (1.4-5.7) K/uL Lymph # (Auto) 2.7 H (0.6-2.4) K/uL Talbot # (Auto) 0.4 (0.0-0.8) K/uL Eos # (Auto) 0.2 (0.0-0.7) K/uL Baso # (Auto) 0.0 (0.0-0.1) K/uL Nucleated RBC % 0.0 /100WBC Nucleated RBCs # 0 K/uL Sodium 138 (136-145) mmol/L Potassium 3.8 (3.5-5.1) mmol/L Chloride 102 (98-107) mmol/L Carbon Dioxide 25.0 (21.0-32.0) mmol/L BUN 12 (7.0-18.0) mg/dL Creatinine 0.8 (0.6-1.0) mg/dL Est Cr Clr Drug Dosing 70.98 mL/min Estimated GFR (MDRD) > 60.0 ml/min Glucose 142 H (74-106) mg/dL Calcium 8.8 (8.5-10.1) mg/dL Total Bilirubin 0.3 (0.2-1.0) mg/dL AST 17 (15-37) IU/L ALT 27 (14-63) IU/L Alkaline Phosphatase 67 (46-116) U/L Total Protein 7.5 (6.4-8.2) g/dL Albumin 4.1 (3.4-5.0) g/dL Globulin 3.4 (2.6-4.0) g/dL Albumin/Globulin Ratio 1.2 (0.9-1.6) Lipase 104 (73-393) U/L Urine Color VANDANA Urine Appearance CLEAR Urine pH 5.5 (5.0-8.0) Ur Specific Nixon >= 1.030 (1.001-1.035) Urine Protein 100 H (NEGATIVE) mg/dL Urine Glucose (UA) NEGATIVE (NEGATIVE) mg/dL Urine Ketones NEGATIVE (NEGATIVE) mg/dL Urine Occult Blood LARGE H (NEGATIVE) Urine Nitrite NEGATIVE (NEGATIVE) Urine Bilirubin SMALL H (NEGATIVE) Urine Urobilinogen 0.2 (<2.0) EU/dL Ur Leukocyte Esterase TRACE H (NEGATIVE) Urine RBC TOO NUMEROUS TO CT H (0-2/HPF) Urine WBC 5-8 (0-5/HPF) Ur Epithelial Cells FEW (NONE-FEW) Calcium Oxalate Crystal OCCASIONAL (NEGATIVE) Urine Bacteria FEW (NEGATIVE) Urine Mucus LIGHT (NONE-MOD) Urine HCG, Qual (NEGATIVE) 04/19/20 Range/Units 16:27 WBC (4.0-11.0) K/uL RBC (4.30-5.90) M/uL Hgb (12.0-16.0) g/dL Hct (36.0-46.0) % MCV (80.0-98.0) fL MCH (27.0-32.0) pg MCHC (31.0-37.0) g/dL RDW Std Deviation (28.0-62.0) fl RDW Coeff of Clement (11.0-15.0) % Plt Count (150-400) K/uL MPV (7.40-12.00) fL Neut % (Auto) (48.0-80.0) % Lymph % (Auto) (16.0-40.0) % Talbot % (Auto) (0.0-15.0) % Eos % (Auto) (0.0-7.0) % Baso % (Auto) (0.0-1.5) % Neut # (Auto) (1.4-5.7) K/uL Lymph # (Auto) (0.6-2.4) K/uL Talbot # (Auto) (0.0-0.8) K/uL Eos # (Auto) (0.0-0.7) K/uL Baso # (Auto) (0.0-0.1) K/uL Nucleated RBC % /100WBC Nucleated RBCs # K/uL Sodium (136-145) mmol/L Potassium (3.5-5.1) mmol/L Chloride (98-107) mmol/L Carbon Dioxide (21.0-32.0) mmol/L BUN (7.0-18.0) mg/dL Creatinine (0.6-1.0) mg/dL Est Cr Clr Drug Dosing mL/min Estimated GFR (MDRD) ml/min Glucose (74-106) mg/dL Calcium (8.5-10.1) mg/dL Total Bilirubin (0.2-1.0) mg/dL AST (15-37) IU/L ALT (14-63) IU/L Alkaline Phosphatase (46-116) U/L Total Protein (6.4-8.2) g/dL Albumin (3.4-5.0) g/dL Globulin (2.6-4.0) g/dL Albumin/Globulin Ratio (0.9-1.6) Lipase (73-393) U/L Urine Color Urine Appearance Urine pH (5.0-8.0) Ur Specific Nixon (1.001-1.035) Urine Protein (NEGATIVE) mg/dL Urine Glucose (UA) (NEGATIVE) mg/dL Urine Ketones (NEGATIVE) mg/dL Urine Occult Blood (NEGATIVE) Urine Nitrite (NEGATIVE) Urine Bilirubin (NEGATIVE) Urine Urobilinogen (<2.0) EU/dL Ur Leukocyte Esterase (NEGATIVE) Urine RBC (0-2/HPF) Urine WBC (0-5/HPF) Ur Epithelial Cells (NONE-FEW) Calcium Oxalate Crystal (NEGATIVE) Urine Bacteria (NEGATIVE) Urine Mucus (NONE-MOD) Urine HCG, Qual NEGATIVE (NEGATIVE) Meds: Medications Discontinued Medications Generic Name Dose Route Start Last Admin Trade Name Facundoq PRN Reason Stop Dose Admin Ciprofloxacin 500 mg 04/19/20 16:51 04/19/20 17:00 Ciprofloxacin Hcl PO 04/19/20 16:52 500 mg ONETIME ONE Administration Hydromorphone HCl 1 mg 04/19/20 15:18 04/19/20 16:16 Dilaudid IVPUSH 04/19/20 15:19 1 mg ONETIME ONE Administration Hydromorphone HCl 1 mg 04/19/20 16:47 04/19/20 16:58 Dilaudid IVPUSH 04/19/20 16:48 1 mg ONETIME ONE Administration Sodium Chloride 1,000 mls @ 999 mls/hr 04/19/20 15:18 04/19/20 16:16 Normal Saline IV 04/19/20 16:18 999 mls/hr STAT ONE Administration Ceftriaxone Sodium/Dextrose 1 50 mls @ 100 mls/hr 04/19/20 16:49 04/19/20 17:01 gm/ Premix IV 04/19/20 17:18 Not Given ONETIME ONE Iopamidol 100 ml 04/19/20 17:37 04/19/20 17:38 Isovue-370 (76%) IVPUSH 04/19/20 17:38 100 ml ONETIME ONE Administration Ketorolac Tromethamine 30 mg 04/19/20 15:18 04/19/20 16:16 Toradol IVPUSH 04/19/20 15:19 30 mg ONETIME ONE Administration Ondansetron HCl 4 mg 04/19/20 15:18 04/19/20 16:16 Zofran IVPUSH 04/19/20 15:19 4 mg ONETIME ONE Administration Departure - Departure Time of Disposition: 18:11 Disposition: Home, Self-Care 01 Clinical Impression: Abdominal pain Qualifiers: Abdominal location: right lower quadrant Qualified Code(s): R10.31 - Right lower quadrant pain UTI (urinary tract infection) Qualifiers: Urinary tract infection type: acute cystitis Hematuria presence: with hematuria Qualified Code(s): N30.01 - Acute cystitis with hematuria - Discharge Information Prescriptions: Ciprofloxacin HCl [Cipro] 500 mg PO BID 7 Days #14 tablet Instructions: Urinary Tract Infection, Adult Referrals: PCP,None [Primary Care Provider] - Forms: ED Department Discharge Additional Instructions: The following information is given to patients seen in the emergency department who are being discharged to home. This information is to outline your options for follow-up care. We provide all patients seen in our emergency department with a follow-up referral. The need for follow-up, as well as the timing and circumstances, are variable depending upon the specifics of your emergency department visit. If you don't have a primary care physician on staff, we will provide you with a referral. We always advise you to contact your personal physician following an emergency department visit to inform them of the circumstance of the visit and for follow-up with them and/or the need for any referrals to a consulting specialist. The emergency department will also refer you to a specialist when appropriate. This referral assures that you have the opportunity for follow-up care with a specialist. All of these measure are taken in an effort to provide you with optimal care, which includes your follow-up. Under all circumstances we always encourage you to contact your private physician who remains a resource for coordinating your care. When calling for follow-up care, please make the office aware that this follow-up is from your recent emergency room visit. If for any reason you are refused follow-up, please contact the [facility] Emergency Department at and asked to speak to the emergency department charge nurse. [facility] [address] [place] [address] [facility] [address] [place] [address] Thank you for choosing the [facility] emergency department in [place] for your medical needs today. It was a pleasure caring for you. Today you were seen in the emergency department for acute on chronic abdominal pain. 1. Today your lab work is normal with the exception of UTI. You need to take the antibiotic as prescribed. Increase your oral fluids. 2. Take your home medication as directed. 3. We encourage you to follow up with your primary care provider and GI specialist in the next few days for re-evaluation and further care/management. If your symptoms should worsen, new symptoms develop or any of the signs and symptoms we discussed should arise please return to the emergency room or call 911 (if needed). Sepsis Event Note (ED) - Focused Exam Vital Signs: Vital Signs Temp Pulse Resp BP Pulse Ox 04/19/20 17:03 76 16 123/89 93 L 04/19/20 13:15 96.0 F L 77 18 91/58 L 96 - My Orders Last 24 Hours: My Active Orders 04/19/20 16:27 CULTURE URINE [RM] Stat - Assessment/Plan Last 24 Hours: My Active Orders 04/19/20 16:27 CULTURE URINE [RM] Stat
[2020-04-19 16:13] LABS: BLOOD UREA NITROGEN,BUN 12 mg/dL (7.0-18.0); CHLORIDE,CL 102 mmol/L (98-107); GLUCOSE RANDOM 142 mg/dL (74-106); LIPASE 104 U/L (73-393); POTASSIUM,K 3.8 mmol/L (3.5-5.1); SODIUM,NA 138 mmol/L (136-145)
[2020-04-19] MEDS ORDERED: cefTRIAXone 1 GM in Premix Bag 1 BAG IV ONE (16:49)
[2020-04-19] MEDS ORDERED: Ciprofloxacin 500 MG Tab PO ONE (16:51)
[2020-04-19] MEDS ORDERED: Iopamidol 755 Mg/ML 100 ML Bottle IVPUSH ONE (17:37)
--- NOTE | 2020-04-19 18:05 | CT ---
Indication: Right lower quadrant pain Technique: Contrast CT abdomen and pelvis Comparison: No studies are available Findings: Heart size normal. There is no pericardial the lung are clear. Fatty liver cholecystectomy. Dilatation of the common bile duct. Pancreas adrenal glands tiny low-density lesion the spleen, likely benign. Normal caliber abdominal aorta. 2 x 0.9 centimeter right renal pelvic stone, Hounsfield units of 573 with focal mild renal pelvic dilatation. Kidneys are otherwise unremarkable. Tiny fat containing umbilical hernia with surrounding inflammatory change within the adjacent soft tissues. 1.6 cm right ovarian cyst. Minimal diverticulosis. Normal appendix urinary bladder decompressed. No suspicious bony lesions. Impression: 1. 2 centimeter x 0.9 centimeter right renal pelvic stone with mild focal dilatation of the renal pelvis. Hounsfield units of 573. 2. Normal appendix. 3. Fatty liver. 4. Tiny fat containing umbilical hernia with mild inflammatory change within the adjacent soft tissues. Please note that all CT scans at this facility use dose modulation, iterative reconstruction, and/or weight-based dosing when appropriate to reduce radiation dose to as low as reasonably achievable. Dictated by Kortney Kaufman MD @ Apr 19 2020 5:57PM Signed by Dr. Kortney Kaufman @ Apr 19 2020 6:04PM
== END 2020-04-19 18:30 | disposition home or self-care (01) ==
LOC: MW.ED 13:12
DX: N30.01 Acute cystitis with hematuria (principal); I10 Essential (primary) hypertension; E11.9 Type 2 diabetes mellitus without complications; F31.9 Bipolar disorder, unspecified; E66.9 Obesity, unspecified; Z59.0 Homelessness; Z88.5 Allergy status to narcotic agent; Z91.018 Allergy to other foods; Z91.040 Latex allergy status; Z88.0 Allergy status to penicillin; Z91.09 Other allergy status, other than to drugs and biological substances; Z88.6 Allergy status to analgesic agent; Z79.899 Other long term (current) drug therapy; Z68.41 Body mass index [BMI] 40.0-44.9, adult
CPT/HCPCS: 36415; 74177; 80053; 81001; 81025; 83690; 85025; 87086; 96374; 96375; 96376; 99284; A9270; J1170; J1885; J2405; J7030; Q9967

== ENCOUNTER 2020-04-22 04:30 | Observation (INO) | payer MEDICARE, OTHER ==
[2020-04-22] MEDS ORDERED: HYDROmorphone 1 MG/ML Syringe IVPUSH ONE ×2 (05:04→07:43)
[2020-04-22] MEDS ORDERED: Dextrose 5%-Lactated Ringers 1,000 ML IV SCH (05:15)
[2020-04-22] MEDS ORDERED: Ondansetron 4 MG/2 ML SDV ONE (05:22)
[2020-04-22] MEDS ORDERED: Ondansetron 4 MG/2 ML SDV IVPUSH ONE (05:25)
[2020-04-22 05:48] LABS: BLOOD UREA NITROGEN,BUN 8 mg/dL (7.0-18.0); CARBON DIOXIDE,CO2 22.4 mmol/L (21.0-32.0); CHLORIDE,CL 99 mmol/L (98-107); GLUCOSE RANDOM 248 mg/dL (74-106); POTASSIUM,K 3.7 mmol/L (3.5-5.1); SODIUM,NA 137 mmol/L (136-145)
[2020-04-22] MEDS ORDERED: Iopamidol 755 Mg/ML 100 ML Bottle IVPUSH STA (06:21)
[2020-04-22] MEDS ORDERED: Sodium Chloride 0.9% 1,000 ML IV ONE (06:37)
--- NOTE | 2020-04-22 07:19 | CT ---
INDICATION: Right lower quadrant abdomen pain. TECHNIQUE: CT abdomen and pelvis acquired without and with 80 cc Isovue 370 IV contrast. COMPARISON: April 19, 2020. FINDINGS: Lower chest: Unremarkable. Liver: Unremarkable. Normal in size and attenuation. No masses. Gallbladder and bile ducts: Status post cholecystectomy. Pancreas: Unremarkable. No mass or inflammation. Spleen: Unremarkable. Normal in size. No masses. Adrenal glands: Unremarkable. No nodules. Kidneys: Large 2 x 1 cm stone in the right renal pelvis is unchanged in position. Very minimal caliectasis on the right is also unchanged. No brian hydronephrosis. No other stones. Kidneys otherwise unremarkable. GI tract: Unremarkable. Normal in caliber. No sign of mass or inflammation. Normal appendix. Vasculature: Unremarkable. Mesenteric arteries are patent. Lymph nodes: No lymphadenopathy. Omentum/Peritoneum/Abdominal Wall: Stable small ventral hernia in the midline with inflammatory changes. No free air or fluid collection. Pelvis: Unremarkable. Bones: Unremarkable for age. IMPRESSION: No change compared to the prior exam from 3 days ago. Large stone in the right renal pelvis is unchanged in position with stable very minimal right renal caliectasis. No other acute or specific finding to explain right-sided pain. Please note that all CT scans at this facility use dose modulation, iterative reconstruction, and/or weight-based dosing when appropriate to reduce radiation dose to as low as reasonably achievable. Dictated by Darin Hernandez MD @ Apr 22 2020 7:10AM Signed by Dr. Darin Hernandez @ Apr 22 2020 7:19AM
--- NOTE | 2020-04-22 08:12 | EDM.PDOC ---
ED HPI GENERAL MEDICAL PROBLEM - General Chief Complaint: Genitourinary Problem Stated Complaint: SEVERE PAIN IN SIDE Time Seen by Provider: 04/22/20 07:59 Source of Information: Reports: Patient History Limitations: Reports: No Limitations - History of Present Illness INITIAL COMMENTS - FREE TEXT/NARRATIVE: 44-year-old female h/o umbilical hernia in January returns for right sided abdominal pain. Pain came back at 2 AM today, described as sharp, constant, waxes and wanes, localized to the right lower quadrant, nonradiating, no alleviating or exacerbating factors. Associated with nausea, vomiting, diarrhea, sweats. She denies fever, chest pain, shortness of breath. She was seen here on 04/19 for similar pain, was prescribed ciprofloxacin at that time for UTI. CT was performed on 04/19 demonstrating right renal calculi. Her pain is currently rated at 10/10. ROS: A 10-point review of systems, other than pertinent positives and negatives as stated per HPI, is otherwise negative Past medical history: No additional pertinent history Past Surgical history: No additional pertinent history Social history: No additional pertinent history Family history: No additional pertinent history PHYSICAL EXAM General: AOx4, GCS = 15, moderate distress, obese HEENT: dry mucous membrane Neck: supple, no meningismus, no Kernig or Brudzinski Cardiac: S1S2 RRR Respiratory: CTAB, no crackles or rales, no wheezing Abdomen: Soft, nontender, no rebound or guarding, nondistended, no pulsatile mass. Back: nontender Musculoskeletal: NVI distally, no deformity Neuro: No focal deficits, CN 2 - 12 WNL. Right Abdomen Pain Score (Numeric/FACES): 10 - Related Data Allergies Allergy/AdvReac Type Severity Reaction Status Date / Time acetaminophen [From [facility]] Allergy Hives Verified 04/19/20 15:31 aspirin Allergy Bleeding Verified 04/19/20 15:31 banana Allergy Hives Verified 04/19/20 15:31 hydrocodone [From [facility]] Allergy Hives Verified 04/19/20 15:31 ibuprofen Allergy Bleeding Verified 04/19/20 15:31 latex Allergy Hives Verified 04/19/20 15:31 metformin Allergy Vomiting Verified 04/19/20 15:31 morphine Allergy Headache Verified 04/19/20 15:31 Penicillins Allergy Hives Verified 04/19/20 15:31 tape Allergy Hives Uncoded 04/19/20 15:31 Home Meds: Home Meds Dextroamphetamine/Amphetamine [Adderall] 30 mg PO BID 08/20/18 [History] Escitalopram Oxalate [Lexapro] 20 mg PO BEDTIME 08/20/18 [History] lamoTRIgine [Lamictal XR] 100 mg PO DAILY 08/20/18 [History] Losartan/Hydrochlorothiazide [Losartan-HCTZ 50-12.5 MG] 1 tab PO DAILY 08/22/19 [History] traZODone HCl [Trazodone HCl] 50 mg PO BEDTIME 08/22/19 [History] Sulfamethoxazole/Trimethoprim [Bactrim Ds Tablet] 1 each PO BID 7 Days #14 tablet 04/06/20 [Rx] Ciprofloxacin HCl [Cipro] 500 mg PO BID 7 Days #14 tablet 04/19/20 [Rx] Past Medical History Cardiovascular History: Reports: Hypertension Gastrointestinal History: Reports: GI Bleed [employer] History: Reports: Psychiatric History: Reports: Bipolar, Depression Endocrine/Metabolic History: Reports: Diabetes, Type II Hematologic History: Reports: Anemia, Blood Transfusion(s) Immunologic History: Reports: None - Infectious Disease History Infectious Disease History: Reports: Chicken Pox - Past Surgical History GI Surgical History: Reports: Hernia Repair/Other Social & Family History - Family History Family Medical History: Noncontributory - Tobacco Use Tobacco Use Status *Q: Current Every Day Tobacco User Years of Tobacco use: 10 Packs/Tins Daily: 1 Used Tobacco, but Quit: No Second Hand Smoke Exposure: Yes - Caffeine Use Caffeine Use: Reports: Coffee - Recreational Drug Use Recreational Drug Use Frequency: Patient Refuses To Answer ED ROS GENERAL - Review of Systems Review Of Systems: Comprehensive ROS is negative, except as noted in HPI. ED EXAM, GENERAL - Physical Exam Exam: See Below (0000) Course - Vital Signs Last Recorded V/S: Last Vital Signs Temp 96.6 F L 04/22/20 05:12 Pulse 94 10/20/20 07:59 Resp 20 04/22/20 07:59 BP 117/69 04/22/20 07:59 Pulse Ox 96 04/22/20 07:59 - Orders/Labs/Meds Orders: Active Orders 24 hr Category Date Time Status Cardiac Monitoring [RC] . DIRECTED Care 04/22/20 05:02 Active Pulse Oximetry [RC] ASDIRECTED Care 04/22/20 05:02 Active CORONAVIRUS COVID-19 PCR PHL Stat Lab 04/22/20 08:53 Ordered Dextrose 5%-Lactated Ringers 1,000 ml Med 04/22/20 05:15 Active IV ASDIRECTED Medication Orders Dextrose/Lactated Ringer's (Dextrose 5%-Lactated Ringers) 1,000 mls @ 999 mls/hr IV ASDIRECTED SHARITA Last Admin: 04/22/20 05:25 Dose: 999 mls/hr Documented by: EMILY Labs: Laboratory Tests 04/22/20 04/22/20 04/22/20 Range/Units 05:24 05:24 05:24 WBC 15.48 H (4.0-11.0) K/uL RBC 4.95 (4.30-5.90) M/uL Hgb 14.9 (12.0-16.0) g/dL Hct 45.4 (36.0-46.0) % MCV 91.7 (80.0-98.0) fL MCH 30.1 (27.0-32.0) pg MCHC 32.8 (31.0-37.0) g/dL RDW Std Deviation 45.7 (28.0-62.0) fl RDW Coeff of Clement 14 (11.0-15.0) % Plt Count 355 (150-400) K/uL MPV 10.90 (7.40-12.00) fL Neut % (Auto) 70.7 (48.0-80.0) % Lymph % (Auto) 23.4 (16.0-40.0) % [place] % (Auto) 5.2 (0.0-15.0) % Eos % (Auto) 0.5 (0.0-7.0) % Baso % (Auto) 0.2 (0.0-1.5) % Neut # (Auto) 11.0 H (1.4-5.7) K/uL Lymph # (Auto) 3.6 H (0.6-2.4) K/uL Knox # (Auto) 0.8 (0.0-0.8) K/uL Eos # (Auto) 0.1 (0.0-0.7) K/uL Baso # (Auto) 0.0 (0.0-0.1) K/uL Nucleated RBC % 0.0 /100WBC Nucleated RBCs # 0 K/uL Sodium 137 (136-145) mmol/L Potassium 3.7 (3.5-5.1) mmol/L Chloride 99 (98-107) mmol/L Carbon Dioxide 22.4 (21.0-32.0) mmol/L BUN 8 (7.0-18.0) mg/dL Creatinine 1.1 H (0.6-1.0) mg/dL Est Cr Clr Drug Dosing 51.62 mL/min Estimated GFR (MDRD) 54.0 ml/min Glucose 248 H (74-106) mg/dL Calcium 9.7 (8.5-10.1) mg/dL Total Bilirubin 0.6 (0.2-1.0) mg/dL AST 17 (15-37) IU/L ALT 32 (14-63) IU/L Alkaline Phosphatase 74 (46-116) U/L Total Protein 8.2 (6.4-8.2) g/dL Albumin 4.5 (3.4-5.0) g/dL Globulin 3.7 (2.6-4.0) g/dL Albumin/Globulin Ratio 1.2 (0.9-1.6) HCG, Qual NEGATIVE (NEG) Urine Color Urine Appearance Urine pH (5.0-8.0) Ur Specific [place] (1.001-1.035) Urine Protein (NEGATIVE) mg/dL Urine Glucose (UA) (NEGATIVE) mg/dL Urine Ketones (NEGATIVE) mg/dL Urine Occult Blood (NEGATIVE) Urine Nitrite (NEGATIVE) Urine Bilirubin (NEGATIVE) Urine Urobilinogen (<2.0) EU/dL Ur Leukocyte Esterase (NEGATIVE) Urine RBC (0-2/HPF) Urine WBC (0-5/HPF) Ur Epithelial Cells (NONE-FEW) Urine Bacteria (NEGATIVE) Urine Mucus (NONE-MOD) Urine Opiates Screen (NEGATIVE) Ur Oxycodone Screen (NEGATIVE) Urine Methadone Screen (NEGATIVE) Ur Barbiturates Screen (NEGATIVE) Ur Phencyclidine Scrn (NEGATIVE) Ur Amphetamine Screen (NEGATIVE) U Methamphetamines Scrn (NEGATIVE) U Benzodiazepines Scrn (NEGATIVE) U Cocaine Metab Screen (NEGATIVE) U Marijuana (THC) Screen (NEGATIVE) Ethyl Alcohol < 3.0 mg/dL 04/22/20 04/22/20 Range/Units 07:42 07:42 WBC (4.0-11.0) K/uL RBC (4.30-5.90) M/uL Hgb (12.0-16.0) g/dL Hct (36.0-46.0) % MCV (80.0-98.0) fL MCH (27.0-32.0) pg MCHC (31.0-37.0) g/dL RDW Std Deviation (28.0-62.0) fl RDW Coeff of Clement (11.0-15.0) % Plt Count (150-400) K/uL MPV (7.40-12.00) fL Neut % (Auto) (48.0-80.0) % Lymph % (Auto) (16.0-40.0) % Knox % (Auto) (0.0-15.0) % Eos % (Auto) (0.0-7.0) % Baso % (Auto) (0.0-1.5) % Neut # (Auto) (1.4-5.7) K/uL Lymph # (Auto) (0.6-2.4) K/uL Knox # (Auto) (0.0-0.8) K/uL Eos # (Auto) (0.0-0.7) K/uL Baso # (Auto) (0.0-0.1) K/uL Nucleated RBC % /100WBC Nucleated RBCs # K/uL Sodium (136-145) mmol/L Potassium (3.5-5.1) mmol/L Chloride (98-107) mmol/L Carbon Dioxide (21.0-32.0) mmol/L BUN (7.0-18.0) mg/dL Creatinine (0.6-1.0) mg/dL Est Cr Clr Drug Dosing mL/min Estimated GFR (MDRD) ml/min Glucose (74-106) mg/dL Calcium (8.5-10.1) mg/dL Total Bilirubin (0.2-1.0) mg/dL AST (15-37) IU/L ALT (14-63) IU/L Alkaline Phosphatase (46-116) U/L Total Protein (6.4-8.2) g/dL Albumin (3.4-5.0) g/dL Globulin (2.6-4.0) g/dL Albumin/Globulin Ratio (0.9-1.6) HCG, Qual (NEG) Urine Color YELLOW Urine Appearance CLEAR Urine pH 5.5 (5.0-8.0) Ur Specific [place] 1.010 (1.001-1.035) Urine Protein NEGATIVE (NEGATIVE) mg/dL Urine Glucose (UA) >=1000 (NEGATIVE) mg/dL Urine Ketones TRACE H (NEGATIVE) mg/dL Urine Occult Blood LARGE H (NEGATIVE) Urine Nitrite NEGATIVE (NEGATIVE) Urine Bilirubin NEGATIVE (NEGATIVE) Urine Urobilinogen 0.2 (<2.0) EU/dL Ur Leukocyte Esterase NEGATIVE (NEGATIVE) Urine RBC 10-15 (0-2/HPF) Urine WBC 0-2 (0-5/HPF) Ur Epithelial Cells FEW (NONE-FEW) Urine Bacteria FEW (NEGATIVE) Urine Mucus LIGHT (NONE-MOD) Urine Opiates Screen POSITIVE (NEGATIVE) Ur Oxycodone Screen NEGATIVE (NEGATIVE) Urine Methadone Screen NEGATIVE (NEGATIVE) Ur Barbiturates Screen NEGATIVE (NEGATIVE) Ur Phencyclidine Scrn NEGATIVE (NEGATIVE) Ur Amphetamine Screen NEGATIVE (NEGATIVE) U Methamphetamines Scrn NEGATIVE (NEGATIVE) U Benzodiazepines Scrn NEGATIVE (NEGATIVE) U Cocaine Metab Screen NEGATIVE (NEGATIVE) U Marijuana (THC) Screen POSITIVE (NEGATIVE) Ethyl Alcohol mg/dL Meds: Medications Generic Name Dose Route Start Last Admin Trade Name Freq PRN Reason Stop Dose Admin Dextrose/Lactated Ringer's 1,000 mls @ 999 mls/hr 04/22/20 05:15 04/22/20 05:25 Dextrose 5%-Lactated Ringers IV 999 mls/hr ASDIRECTED SHARITA Administration Discontinued Medications Generic Name Dose Route Start Last Admin Trade Name Freq PRN Reason Stop Dose Admin Hydromorphone HCl 1 mg 04/22/20 05:04 04/22/20 05:27 Dilaudid IVPUSH 04/22/20 05:05 1 mg ONETIME ONE Administration Hydromorphone HCl 1 mg 04/22/20 07:43 04/22/20 07:54 Dilaudid IVPUSH 04/22/20 07:44 1 mg ONETIME ONE Administration Sodium Chloride 1,000 mls @ 999 mls/hr 04/22/20 06:37 04/22/20 07:53 Normal Saline IV 04/22/20 07:37 999 mls/hr .Bolus ONE Administration Iopamidol 80 ml 04/22/20 06:21 04/22/20 06:22 Isovue-370 (76%) IVPUSH 04/22/20 06:22 80 ml ONETIME STA Administration Ondansetron HCl Confirm 04/22/20 05:22 04/22/20 05:29 Zofran Administered 04/22/20 05:23 Not Given Dose 4 mg .ROUTE .STK-MED ONE Ondansetron HCl 4 mg 04/22/20 05:25 04/22/20 05:26 Zofran IVPUSH 04/22/20 05:26 4 mg ONETIME ONE Administration - Re-Assessments/Exams Free Text/Narrative Re-Assessment/Exam: 04/22/20 07:10 patient signed out to me from Dr. Riggs at this time. I promptly performed a detailed physical examination, my examination was performed after ED treatments were initiated by him. Patient has been under the care of the previous provider up until this point. Patient was given 1 mg IV Dilaudid and 4 mg IV Zofran and 2L IV fluids prior to signout. 04/22/20 07:50 I reassessed the patient, who is feeling unchanged despite initial 1 mg IV Dilaudid. We will redose another 1 mg IV Dilaudid. 04/22/20 08:46 I reassessed the patient, who is feeling unchanged, her pain is now rated 7/10. Her blood pressure improved to 120/63. Will admit for intractable pain. Case discussed with Dr. Kiran, who agrees to admit patient. The hospitalist's documentation supersedes all other documentation on this patient with regard to any conflicts or discrepancies from this point forward. Any emergency conditions have been treated to the ability of the ED prior to admission. Departure - Departure Time of Disposition: 08:50 Disposition: Refer to Observation Condition: Good Clinical Impression: Kidney stone, Intractable abdominal pain - Discharge Information Referrals: PCP,None [Primary Care Provider] - Forms: ED Department Discharge Sepsis Event Note (ED) - Evaluation Sepsis Screening Result: No Definite Risk - Focused Exam Vital Signs: Vital Signs Temp Pulse Resp BP Pulse Ox 04/22/20 07:59 94 20 117/69 96 04/22/20 06:02 146/80 H 04/22/20 05:12 96.6 F L 99 22 H 158/125 H 99 - My Orders Last 24 Hours: My Active Orders 04/22/20 08:53 CORONAVIRUS COVID-19 PCR PHL Stat - Assessment/Plan Last 24 Hours: My Active Orders 04/22/20 08:53 CORONAVIRUS COVID-19 PCR PHL Stat
--- NOTE | 2020-04-22 08:29 | EDM.PDOC ---
ED HPI GENERAL MEDICAL PROBLEM - General Chief Complaint: Genitourinary Problem Stated Complaint: SEVERE PAIN IN SIDE Time Seen by Provider: 04/22/20 07:59 Source of Information: Reports: Patient History Limitations: Reports: No Limitations - History of Present Illness INITIAL COMMENTS - FREE TEXT/NARRATIVE: CHIEF COMPLAINT(S): Abdominal pain HISTORY OF PRESENT ILLNESS: This is a 44-year-old woman with a past medical history of multiple visits for chronic abdominal pain who was found to have a pelvic renal stone without any signs of hydronephrosis recently who comes to the emergency department with abdominal pain. The patient states that she has been experiencing intermittent abdominal pain since September however today she started to experience worsening pain in the right lower quadrant of her abdomen. She rates her pain as 10 out of 10. She states that the pain starts in her right side and radiates to her right lower quadrant. She states that she has had associated nausea and vomiting. She denies any hematochezia, hematemesis, or bilious emesis. She denies any melena. She states that she took a Tylenol earlier today without any relief. She states that something is wrong and she does not know why she keeps having this pain. She denies any dysuria, hematuria, vaginal bleeding or vaginal discharge. She denies any chest pain or shortness of breath. She denies any diaphoresis. She denies any fevers. She denies any known contact with anybody with coronavirus. REVIEW OF SYSTEMS: Constitutional: Denies fever, chills. Eyes: Denies eye pain Ears, Nose, Mouth, & Throat: Denies earache Cardiovascular: Denies chest pain Respiratory: Denies shortness of breath Gastrointestinal: Positive for abdominal pain, nausea, vomiting. Denies diarrhea, medic easier, hematemesis, bilious emesis, melena Genitourinary: Denies hematuria, dysuria, vaginal bleeding, vaginal discharge Skin:Denies a rash Neurological: Denies blurred vision Psychiatric: Denies depression PAST MEDICAL HISTORY: As per history of present illness and as reviewed below otherwise noncontributory. SURGICAL HISTORY: As per history of present illness and as reviewed below otherw ise noncontributory. SOCIAL HISTORY: As per history of present illness and as reviewed below otherwise noncontributory. FAMILY HISTORY: As per history of present illness and as reviewed below otherw ise noncontributory. EXAMINATION OF ORGAN SYSTEMS/BODY AREAS: Constitutional: Blood pressure was 158/125, heart rate 99, respiratory 22 with an oxygen saturation 9 9% on room air. Temperature 35.9 General: Obese woman who is rolling around in bed asking for pain medications and appears to be in pain. She is mildly diaphoretic Psychiatric: Appears anxious Eyes: No scleral icterus or conjunctival erythema ENMT: Moist mucous membranes. No pharyngeal erythema Cardiovascular: Regular, rate, and rythym. No gallops, murmurs, or rubs. Bilateral upper extremity pulses symmetric and intact. No peripheral edema. No JVD. Respiratory: Lungs clear to auscultation bilaterally. No wheezes, rales, or rhonchi. Gastrointestinal: Soft, tenderness to palpation in the right lower quadrant. No guarding. Negative Roslaes's. Normal bowel sounds. Genitourinary: No suprapubic tenderness right CVA tenderness is present. Musculoskeletal: Normal range of motion. Skin: No lesions or abrasions. Neurological: Alert, GCS 15 MEDICAL DECISION MAKING AND COURSE IN THE ED WITH INTERPRETATION/REVIEW OF DIAGNOSTIC STUDIES: This is a 44-year-old woman with a past medical history of renal pelvic stone with multiple recent visits for continued pain. The patient has received multiple CTs in the past. The patient does not appear to be in a significant pain therefore we will provide patient 1 mg of Dilaudid. The patient has stable vitals. Will obtain a repeat work-up including CBC, CMP, urinalysis, UDS, serum alcohol level, and coronavirus. Will obtain hCG. Given the large stone in the renal pelvis there was no evidence of hydronephrosis on the last CT however we will obtain a repeat CT abdomen pelvis without contrast to evaluate for hydronephrosis or pyelonephritis. We will also obtain a CT of the pelvis with IV contrast to evaluate for appendicitis versus other cause. I did review the patient's chart and culture was mixed miles therefore no susceptibilities are present. I did provide the patient with 1 L of D5 LR bolus for hydration. Laboratory: CBC reveals a leukocytosis of 15.48 otherwise unremarkable. CMP reveals elevated creatinine at 1.1 which is up from prior, hyperglycemia at 248. UDS was positive for opiates. Alcohol was negative. hCG was negative. On reevaluation, the patient stated that her pain had improved however that is not completely gone. At this time CT abdomen pelvis was pending in addition urinalysis the patient has not urinated yet. This was at the time of signout. The patient signed out to day team physician pending further work-up disposit ion. If the patient has continued pain would likely admit for IV antibiotics and presumed pyelonephritis. DISPOSITION: The patient was signed out to oncoming day team physician pending further work-up and disposition Leno Riggs M.D. 44-year-old female returns for abdominal pain, nausea, vomiting, diarrhea. Patient was seen here on 04/19 for similar pain, was prescribed ciprofloxacin at that time for UTI. CT was performed on 04/19 demonstrating right renal calculi. ROS: A 10-point review of systems, other than pertinent positives and negatives as stated per HPI, is otherwise negative Past medical history: No additional pertinent history Past Surgical history: No additional pertinent history Social history: No additional pertinent history Family history: No additional pertinent history PHYSICAL EXAM General: AOx4, GCS = 15, moderate distress HEENT: dry mucous membrane Neck: supple, no meningismus, no Kernig or Brudzinski Cardiac: S1S2 RRR Respiratory: CTAB, no crackles or rales, no wheezing Abdomen: Soft, nontender, no rebound or guarding, nondistended, no pulsatile mass. Back: nontender Musculoskeletal: NVI distally, no deformity Neuro: No focal deficits, CN 2 - 12 WNL. Right Abdomen Pain Score (Numeric/FACES): 10 - Related Data Allergies Allergy/AdvReac Type Severity Reaction Status Date / Time acetaminophen [From [facility]] Allergy Hives Verified 04/22/20 11:28 aspirin Allergy Bleeding Verified 04/22/20 11:28 banana Allergy Hives Verified 04/22/20 11:28 hydrocodone [From [facility]] Allergy Hives Verified 04/22/20 11:28 ibuprofen Allergy Bleeding Verified 04/22/20 11:28 latex Allergy Hives Verified 04/22/20 11:28 metformin Allergy Vomiting Verified 04/22/20 11:28 morphine Allergy Headache Verified 04/22/20 11:28 Penicillins Allergy Hives Verified 04/22/20 11:28 tape Allergy Hives Uncoded 04/22/20 11:28 Home Meds: Home Meds Dextroamphetamine/Amphetamine [Adderall] 30 mg PO BID 08/20/18 [History] Escitalopram Oxalate [Lexapro] 20 mg PO BEDTIME 08/20/18 [History] lamoTRIgine [Lamictal XR] 100 mg PO BEDTIME 08/20/18 [History] Losartan/Hydrochlorothiazide [Losartan-HCTZ 50-12.5 MG] 1 tab PO BEDTIME 08/22/19 [History] Sulfamethoxazole/Trimethoprim [Bactrim Ds Tablet] 1 each PO BID 7 Days #14 tablet 04/06/20 [Rx] Ciprofloxacin HCl [Cipro] 500 mg PO BID 7 Days #14 tablet 04/19/20 [Rx] Past Medical History Cardiovascular History: Reports: Hypertension Gastrointestinal History: Reports: 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: Psychiatric History: Reports: Bipolar, Depression Endocrine/Metabolic History: Reports: Diabetes, Type II Hematologic History: Reports: Anemia, Blood Transfusion(s) Immunologic History: Reports: None - Infectious Disease History Infectious Disease History: Reports: Chicken Pox - Past Surgical History GI Surgical History: Reports: Hernia Repair/Other Social & Family History - Family History Family Medical History: Noncontributory - Tobacco Use Tobacco Use Status *Q: Current Every Day Tobacco User Years of Tobacco use: 10 Packs/Tins Daily: 1 Used Tobacco, but Quit: No Second Hand Smoke Exposure: Yes - Caffeine Use Caffeine Use: Reports: Coffee - Recreational Drug Use Recreational Drug Use Frequency: Patient Refuses To Answer ED ROS GENERAL - Review of Systems Review Of Systems: See Below ED EXAM, GENERAL - Physical Exam Exam: See Below Free Text/Narrative:: 44-year-old female returns for abdominal pain, nausea, vomiting, diarrhea. Patient was seen here on 04/19 for similar pain, was prescribed ciprofloxacin at that time for UTI. CT was performed on 04/19 demonstrating right renal calculi. ROS: A 10-point review of systems, other than pertinent positives and negatives as stated per HPI, is otherwise negative Past medical history: No additional pertinent history Past Surgical history: No additional pertinent history Social history: No additional pertinent history Family history: No additional pertinent history PHYSICAL EXAM General: AOx4, GCS = 15, moderate distress HEENT: dry mucous membrane Neck: supple, no meningismus, no Kernig or Brudzinski Cardiac: S1S2 RRR Respiratory: CTAB, no crackles or rales, no wheezing Abdomen: Soft, nontender, no rebound or guarding, nondistended, no pulsatile mass. Back: nontender Musculoskeletal: NVI distally, no deformity Neuro: No focal deficits, CN 2 - 12 WNL. Course - Vital Signs Last Recorded V/S: Last Vital Signs Temp 36.2 C 04/22/20 15:17 Pulse 82 04/22/20 15:17 Resp 20 04/22/20 15:17 BP 113/60 04/22/20 15:17 Pulse Ox 95 04/22/20 15:17 - Orders/Labs/Meds Orders: Medication Orders Dextrose/Water (Dextrose 50% In Water) 50 ml IV ASDIRECTED PRN PRN Reason: Hypoglycemia Docusate Sodium (Colace) 100 mg PO BID PRN PRN Reason: Constipation Escitalopram Oxalate (Lexapro) 20 mg PO BEDTIME [facility] Glucagon (Glucagen) 1 mg IM ASDIRECTED PRN PRN Reason: Hypoglycemia Hydromorphone HCl (Dilaudid) 1 mg IVPUSH Q3H PRN PRN Reason: Pain Last Admin: 04/22/20 15:13 Dose: 1 mg Documented by: SEMICHR Ceftriaxone Sodium/Dextrose 1 (gm/ Premix) 50 mls @ 100 mls/hr IV Q24H [facility] Last Admin: 04/22/20 12:16 Dose: 100 mls/hr Documented by: SEMICHR Sodium Chloride (Normal Saline) 1,000 mls @ 125 mls/hr IV Q8H [facility] Last Admin: 04/22/20 13:10 Dose: Not Given Documented by: SEMICHR Insulin Aspart (Novolog) 0 unit SUBCUT Q6H SH[facility]; Protocol Last Admin: 04/22/20 12:17 Dose: Not Given Documented by: LINDSAY Lamotrigine (Lamotrigine) 50 mg PO BID [facility] Ondansetron HCl (Zofran) 4 mg IVPUSH Q4H PRN PRN Reason: Nausea Sodium Chloride (Saline Flush) 2.5 ml FLUSH ASDIRECTED PRN PRN Reason: Keep Vein Open Last Admin: 04/22/20 10:58 Dose: 2.5 ml Documented by: MARYAM Labs: Laboratory Tests 04/22/20 04/22/20 04/22/20 Range/Units 05:24 05:24 05:24 WBC 15.48 H (4.0-11.0) K/uL RBC 4.95 (4.30-5.90) M/uL Hgb 14.9 (12.0-16.0) g/dL Hct 45.4 (36.0-46.0) % MCV 91.7 (80.0-98.0) fL MCH 30.1 (27.0-32.0) pg MCHC 32.8 (31.0-37.0) g/dL RDW Std Deviation 45.7 (28.0-62.0) fl RDW Coeff of Clement 14 (11.0-15.0) % Plt Count 355 (150-400) K/uL MPV 10.90 (7.40-12.00) fL Neut % (Auto) 70.7 (48.0-80.0) % Lymph % (Auto) 23.4 (16.0-40.0) % Parmer % (Auto) 5.2 (0.0-15.0) % Eos % (Auto) 0.5 (0.0-7.0) % Baso % (Auto) 0.2 (0.0-1.5) % Neut # (Auto) 11.0 H (1.4-5.7) K/uL Lymph # (Auto) 3.6 H (0.6-2.4) K/uL Parmer # (Auto) 0.8 (0.0-0.8) K/uL Eos # (Auto) 0.1 (0.0-0.7) K/uL Baso # (Auto) 0.0 (0.0-0.1) K/uL Nucleated RBC % 0.0 /100WBC Nucleated RBCs # 0 K/uL Sodium 137 (136-145) mmol/L Potassium 3.7 (3.5-5.1) mmol/L Chloride 99 (98-107) mmol/L Carbon Dioxide 22.4 (21.0-32.0) mmol/L BUN 8 (7.0-18.0) mg/dL Creatinine 1.1 H (0.6-1.0) mg/dL Est Cr Clr Drug Dosing 51.62 mL/min Estimated GFR (MDRD) 54.0 ml/min Glucose 248 H (74-106) mg/dL Hemoglobin A1c (4.5-6.2) % Calcium 9.7 (8.5-10.1) mg/dL Total Bilirubin 0.6 (0.2-1.0) mg/dL AST 17 (15-37) IU/L ALT 32 (14-63) IU/L Alkaline Phosphatase 74 (46-116) U/L Total Protein 8.2 (6.4-8.2) g/dL Albumin 4.5 (3.4-5.0) g/dL Globulin 3.7 (2.6-4.0) g/dL Albumin/Globulin Ratio 1.2 (0.9-1.6) HCG, Qual NEGATIVE (NEG) Urine Color Urine Appearance Urine pH (5.0-8.0) Ur Specific [place] (1.001-1.035) Urine Protein (NEGATIVE) mg/dL Urine Glucose (UA) (NEGATIVE) mg/dL Urine Ketones (NEGATIVE) mg/dL Urine Occult Blood (NEGATIVE) Urine Nitrite (NEGATIVE) Urine Bilirubin (NEGATIVE) Urine Urobilinogen (<2.0) EU/dL Ur Leukocyte Esterase (NEGATIVE) Urine RBC (0-2/HPF) Urine WBC (0-5/HPF) Ur Epithelial Cells (NONE-FEW) Urine Bacteria (NEGATIVE) Urine Mucus (NONE-MOD) Urine Opiates Screen (NEGATIVE) Ur Oxycodone Screen (NEGATIVE) Urine Methadone Screen (NEGATIVE) Ur Barbiturates Screen (NEGATIVE) Ur Phencyclidine Scrn (NEGATIVE) Ur Amphetamine Screen (NEGATIVE) U Methamphetamines Scrn (NEGATIVE) U Benzodiazepines Scrn (NEGATIVE) U Cocaine Metab Screen (NEGATIVE) U Marijuana (THC) Screen (NEGATIVE) Ethyl Alcohol < 3.0 mg/dL SARS-CoV-2 RNA (HEMANT) (NEGATIVE) 04/22/20 04/22/20 04/22/20 Range/Units 05:24 07:42 07:42 WBC (4.0-11.0) K/uL RBC (4.30-5.90) M/uL Hgb (12.0-16.0) g/dL Hct (36.0-46.0) % MCV (80.0-98.0) fL MCH (27.0-32.0) pg MCHC (31.0-37.0) g/dL RDW Std Deviation (28.0-62.0) fl RDW Coeff of Clement (11.0-15.0) % Plt Count (150-400) K/uL MPV (7.40-12.00) fL Neut % (Auto) (48.0-80.0) % Lymph % (Auto) (16.0-40.0) % Parmer % (Auto) (0.0-15.0) % Eos % (Auto) (0.0-7.0) % Baso % (Auto) (0.0-1.5) % Neut # (Auto) (1.4-5.7) K/uL Lymph # (Auto) (0.6-2.4) K/uL Parmer # (Auto) (0.0-0.8) K/uL Eos # (Auto) (0.0-0.7) K/uL Baso # (Auto) (0.0-0.1) K/uL Nucleated RBC % /100WBC Nucleated RBCs # K/uL Sodium (136-145) mmol/L Potassium (3.5-5.1) mmol/L Chloride (98-107) mmol/L Carbon Dioxide (21.0-32.0) mmol/L BUN (7.0-18.0) mg/dL Creatinine (0.6-1.0) mg/dL Est Cr Clr Drug Dosing mL/min Estimated GFR (MDRD) ml/min Glucose (74-106) mg/dL Hemoglobin A1c 6.7 H (4.5-6.2) % Calcium (8.5-10.1) mg/dL Total Bilirubin (0.2-1.0) mg/dL AST (15-37) IU/L ALT (14-63) IU/L Alkaline Phosphatase (46-116) U/L Total Protein (6.4-8.2) g/dL Albumin (3.4-5.0) g/dL Globulin (2.6-4.0) g/dL Albumin/Globulin Ratio (0.9-1.6) HCG, Qual (NEG) Urine Color YELLOW Urine Appearance CLEAR Urine pH 5.5 (5.0-8.0) Ur Specific [place] 1.010 (1.001-1.035) Urine Protein NEGATIVE (NEGATIVE) mg/dL Urine Glucose (UA) >=1000 (NEGATIVE) mg/dL Urine Ketones TRACE H (NEGATIVE) mg/dL Urine Occult Blood LARGE H (NEGATIVE) Urine Nitrite NEGATIVE (NEGATIVE) Urine Bilirubin NEGATIVE (NEGATIVE) Urine Urobilinogen 0.2 (<2.0) EU/dL Ur Leukocyte Esterase NEGATIVE (NEGATIVE) Urine RBC 10-15 (0-2/HPF) Urine WBC 0-2 (0-5/HPF) Ur Epithelial Cells FEW (NONE-FEW) Urine Bacteria FEW (NEGATIVE) Urine Mucus LIGHT (NONE-MOD) Urine Opiates Screen POSITIVE (NEGATIVE) Ur Oxycodone Screen NEGATIVE (NEGATIVE) Urine Methadone Screen NEGATIVE (NEGATIVE) Ur Barbiturates Screen NEGATIVE (NEGATIVE) Ur Phencyclidine Scrn NEGATIVE (NEGATIVE) Ur Amphetamine Screen NEGATIVE (NEGATIVE) U Methamphetamines Scrn NEGATIVE (NEGATIVE) U Benzodiazepines Scrn NEGATIVE (NEGATIVE) U Cocaine Metab Screen NEGATIVE (NEGATIVE) U Marijuana (THC) Screen POSITIVE (NEGATIVE) Ethyl Alcohol mg/dL SARS-CoV-2 RNA (HEMANT) (NEGATIVE) 04/22/20 Range/Units 08:41 WBC (4.0-11.0) K/uL RBC (4.30-5.90) M/uL Hgb (12.0-16.0) g/dL Hct (36.0-46.0) % MCV (80.0-98.0) fL MCH (27.0-32.0) pg MCHC (31.0-37.0) g/dL RDW Std Deviation (28.0-62.0) fl RDW Coeff of Clement (11.0-15.0) % Plt Count (150-400) K/uL MPV (7.40-12.00) fL Neut % (Auto) (48.0-80.0) % Lymph % (Auto) (16.0-40.0) % Parmer % (Auto) (0.0-15.0) % Eos % (Auto) (0.0-7.0) % Baso % (Auto) (0.0-1.5) % Neut # (Auto) (1.4-5.7) K/uL Lymph # (Auto) (0.6-2.4) K/uL Parmer # (Auto) (0.0-0.8) K/uL Eos # (Auto) (0.0-0.7) K/uL Baso # (Auto) (0.0-0.1) K/uL Nucleated RBC % /100WBC Nucleated RBCs # K/uL Sodium (136-145) mmol/L Potassium (3.5-5.1) mmol/L Chloride (98-107) mmol/L Carbon Dioxide (21.0-32.0) mmol/L BUN (7.0-18.0) mg/dL Creatinine (0.6-1.0) mg/dL Est Cr Clr Drug Dosing mL/min Estimated GFR (MDRD) ml/min Glucose (74-106) mg/dL Hemoglobin A1c (4.5-6.2) % Calcium (8.5-10.1) mg/dL Total Bilirubin (0.2-1.0) mg/dL AST (15-37) IU/L ALT (14-63) IU/L Alkaline Phosphatase (46-116) U/L Total Protein (6.4-8.2) g/dL Albumin (3.4-5.0) g/dL Globulin (2.6-4.0) g/dL Albumin/Globulin Ratio (0.9-1.6) HCG, Qual (NEG) Urine Color Urine Appearance Urine pH (5.0-8.0) Ur Specific [place] (1.001-1.035) Urine Protein (NEGATIVE) mg/dL Urine Glucose (UA) (NEGATIVE) mg/dL Urine Ketones (NEGATIVE) mg/dL Urine Occult Blood (NEGATIVE) Urine Nitrite (NEGATIVE) Urine Bilirubin (NEGATIVE) Urine Urobilinogen (<2.0) EU/dL Ur Leukocyte Esterase (NEGATIVE) Urine RBC (0-2/HPF) Urine WBC (0-5/HPF) Ur Epithelial Cells (NONE-FEW) Urine Bacteria (NEGATIVE) Urine Mucus (NONE-MOD) Urine Opiates Screen (NEGATIVE) Ur Oxycodone Screen (NEGATIVE) Urine Methadone Screen (NEGATIVE) Ur Barbiturates Screen (NEGATIVE) Ur Phencyclidine Scrn (NEGATIVE) Ur Amphetamine Screen (NEGATIVE) U Methamphetamines Scrn (NEGATIVE) U Benzodiazepines Scrn (NEGATIVE) U Cocaine Metab Screen (NEGATIVE) U Marijuana (THC) Screen (NEGATIVE) Ethyl Alcohol mg/dL SARS-CoV-2 RNA (HEMANT) NEGATIVE (NEGATIVE) Meds: Medications Generic Name Dose Route Start Last Admin Trade Name Freq PRN Reason Stop Dose Admin Dextrose/Water 50 ml 04/22/20 11:51 Dextrose 50% In Water IV ASDIRECTED PRN Hypoglycemia Docusate Sodium 100 mg 04/22/20 10:50 Colace PO BID PRN Constipation Escitalopram Oxalate 20 mg 04/22/20 21:00 Lexapro PO BEDTIME [facility] Glucagon 1 mg 04/22/20 11:51 Glucagen IM ASDIRECTED PRN Hypoglycemia Hydromorphone HCl 1 mg 04/22/20 11:51 04/22/20 15:13 Dilaudid IVPUSH 1 mg Q3H PRN Administration Pain Ceftriaxone Sodium/Dextrose 1 50 mls @ 100 mls/hr 04/22/20 11:45 04/22/20 12:16 gm/ Premix IV 100 mls/hr Q24H SH[facility]ITA Administration Sodium Chloride 1,000 mls @ 125 mls/hr 04/22/20 12:00 04/22/20 13:10 Normal Saline IV Not Given Q8H [facility] Insulin Aspart 0 unit 04/22/20 12:00 04/22/20 12:17 Novolog SUBCUT Not Given Q6H [facility] Protocol Lamotrigine 50 mg 04/22/20 21:00 Lamotrigine PO BID [facility] Ondansetron HCl 4 mg 04/22/20 10:50 Zofran IVPUSH Q4H PRN Nausea Sodium Chloride 2.5 ml 04/22/20 10:50 04/22/20 10:58 Saline Flush FLUSH 2.5 ml ASDIRECTED PRN Administration Keep Vein Open Discontinued Medications Generic Name Dose Route Start Last Admin Trade Name Freq PRN Reason Stop Dose Admin Haloperidol Lactate 3 mg 04/22/20 09:57 04/22/20 10:06 Haldol IM 04/22/20 09:58 3 mg ONETIME ONE Administration Hydromorphone HCl 1 mg 04/22/20 05:04 04/22/20 05:27 Dilaudid IVPUSH 04/22/20 05:05 1 mg ONETIME ONE Administration Hydromorphone HCl 1 mg 04/22/20 07:43 04/22/20 07:54 Dilaudid IVPUSH 04/22/20 07:44 1 mg ONETIME ONE Administration Dextrose/Lactated Ringer's 1,000 mls @ 999 mls/hr 04/22/20 05:15 04/22/20 05:25 Dextrose 5%-Lactated Ringers IV 999 mls/hr ASDIRECTED SHARITA Administration Sodium Chloride 1,000 mls @ 999 mls/hr 04/22/20 06:37 04/22/20 07:53 Normal Saline IV 04/22/20 07:37 999 mls/hr .Bolus ONE Administration Sodium Chloride 1,000 mls @ 125 mls/hr 04/22/20 11:00 04/22/20 10:57 Normal Saline IV 125 mls/hr ASDIRECTED SHARITA Administration Iopamidol 80 ml 04/22/20 06:21 04/22/20 06:22 Isovue-370 (76%) IVPUSH 04/22/20 06:22 80 ml ONETIME STA Administration Ondansetron HCl Confirm 04/22/20 05:22 04/22/20 05:29 Zofran Administered 04/22/20 05:23 Not Given Dose 4 mg .ROUTE .STK-MED ONE Ondansetron HCl 4 mg 04/22/20 05:25 04/22/20 05:26 Zofran IVPUSH 04/22/20 05:26 4 mg ONETIME ONE Administration Departure - Departure Time of Disposition: 07:00 Disposition: Refer to Observation Clinical Impression: Kidney stone, Intractable abdominal pain - Discharge Information Sepsis Event Note (ED) - Evaluation Sepsis Screening Result: No Definite Risk - Focused Exam Vital Signs: Vital Signs Pulse Resp BP Pulse Ox 04/22/20 08:28 95 120/63 94 L 04/22/20 07:59 94 20 117/69 96 04/22/20 06:02 146/80 H
[2020-04-22] MEDS ORDERED: Haloperidol Lactate 5 MG/ML SDV IM ONE (09:57)
[2020-04-22] MEDS ORDERED: Sodium Chloride 0.9% 2.5 ML Syringe FLUSH PRN (10:50)
[2020-04-22] MEDS ORDERED: Ondansetron 4 MG/2 ML SDV IVPUSH PRN (10:50)
[2020-04-22] MEDS ORDERED: Docusate Sodium 100 MG Cap PO PRN (10:50)
[2020-04-22] MEDS ORDERED: Sodium Chloride 0.9% 1,000 ML IV SCH (11:00)
[2020-04-22 11:30] LABS: HEMOGLOBIN A1C 6.7 % (4.5-6.2)
[2020-04-22] MEDS ORDERED: Glucagon,Human Recombinant 1 MG Vial IM PRN (11:51)
[2020-04-22] MEDS ORDERED: 50% Dextrose in Water 50 ML Syringe IV PRN (11:51)
--- NOTE | 2020-04-22 11:53 | PCM.HP.2 ---
H&P History of Present Illness - General Date of Service: 04/22/20 Admit Problem/Dx: Admission Diagnosis/Problem Admission Diagnosis/Problem Abdominal pain Source of Information: Patient History Limitations: Reports: No Limitations - History of Present Illness Initial Comments - Free Text/Narative: This 44-year-old female with past medical history of chronic abdominal pain recent umbilical hernia surgery, hypertension, obesity, tobacco abuse and untreated DM type II presented to the ER with continued right lower quadrant abdominal pain and CVA pain. She has been seen in the ER a couple times in the past week and a half. She was noted to have a UTI was treated with Cipro UC returned with mixed miles greater than 100,000. Today she is reporting nausea and vomiting along with abdominal pain that is sharp shooting and spasming intermittently, radiating to her groin. She reports blood in her urine. She denies any vaginal bleeding or menstruation currently. She denies any dysuria or frequency urgency. She reports mild diarrhea this morning. No fevers or chills. No neck pain no chest pain or shortness of breath. Denies any focal neurological deficits. She denies any history of renal stones in the past. She denies any history of CAD. Reports that she has not been on any medications for diabetes and does not watch her diet or blood sugars at home. She denies any alcohol use, she is currently quitting tobacco use, and is also quitting marijuana use. In the ER leukocytosis of 15,000 was noted. Creatinine 1.1, slightly elevated from baseline. Glucose noted to be 248. CT of her abdomen revealed 2 x 1 cm stone in the right renal pelvis with minimal calyectasis on the right, no brian hydronephrosis, no other stones. Small ventral hernia is noted without inflammatory changes. No free air or fluid collection. In the ER she was treated with normal saline along with Haldol and Dilaudid for pain and nausea. She will be admitted observation with abdominal pain and renal stone. Right Abdomen Pain Score (Numeric/FACES): 10 - Related Data Allergies/Adverse Reactions: Allergies Allergy/AdvReac Type Severity Reaction Status Date / Time acetaminophen [From [place]] Allergy Hives Verified 04/22/20 11:28 aspirin Allergy Bleeding Verified 04/22/20 11:28 banana Allergy Hives Verified 04/22/20 11:28 hydrocodone [From [place]] Allergy Hives Verified 04/22/20 11:28 ibuprofen Allergy Bleeding Verified 04/22/20 11:28 latex Allergy Hives Verified 04/22/20 11:28 metformin Allergy Vomiting Verified 04/22/20 11:28 morphine Allergy Headache Verified 04/22/20 11:28 Penicillins Allergy Hives Verified 04/22/20 11:28 tape Allergy Hives Uncoded 04/22/20 11:28 Home Medications: Home Meds Dextroamphetamine/Amphetamine [Adderall] 30 mg PO BID 08/20/18 [History] Escitalopram Oxalate [Lexapro] 20 mg PO BEDTIME 08/20/18 [History] lamoTRIgine [Lamictal XR] 100 mg PO BEDTIME 08/20/18 [History] Losartan/Hydrochlorothiazide [Losartan-HCTZ 50-12.5 MG] 1 tab PO BEDTIME 08/22/19 [History] Sulfamethoxazole/Trimethoprim [Bactrim Ds Tablet] 1 each PO BID 7 Days #14 tablet 04/06/20 [Rx] Ciprofloxacin HCl [Cipro] 500 mg PO BID 7 Days #14 tablet 04/19/20 [Rx] Past Medical History Cardiovascular History: Reports: Hypertension. Denies: Afib, CAD Respiratory History: Reports: None. 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: Psychiatric History: Reports: Bipolar, Depression, PTSD Endocrine/Metabolic History: Reports: Diabetes, Type II Hematologic History: Reports: Anemia, Blood Transfusion(s) Immunologic History: Reports: None - Infectious Disease History Infectious Disease History: Reports: Chicken Pox - Past Surgical History GI Surgical History: Reports: Hernia Repair/Other Social & Family History - Family History Family Medical History: Noncontributory - Tobacco Use Tobacco Use Status *Q: Current Every Day Tobacco User Years of Tobacco use: 10 Packs/Tins Daily: 1 Used Tobacco, but Quit: No Second Hand Smoke Exposure: Yes - Caffeine Use Caffeine Use: Reports: Coffee - Recreational Drug Use Recreational Drug Use Frequency: Patient Refuses To Answer H&P Review of Systems - Review of Systems: Review Of Systems: See Below General: Reports: No Symptoms. Denies: Fever, Chills, Malaise, Weakness HEENT: Reports: No Symptoms. Denies: Headaches, Sinus Congestion, Sore Throat, Vertigo Pulmonary: Reports: No Symptoms. Denies: Shortness of Breath Cardiovascular: Reports: No Symptoms. Denies: Chest Pain Gastrointestinal: Reports: Abdominal Pain (RLQ and R CVA), Diarrhea, Decreased Appetite, Nausea, Vomiting. Denies: Black Stool, Bloody Stool, Hematemesis Genitourinary: Reports: Hematuria, Flank Pain. Denies: Dysuria, Frequency Musculoskeletal: Reports: No Symptoms Skin: Reports: No Symptoms Psychiatric: Reports: No Symptoms Neurological: Reports: No Symptoms Hematologic/Lymphatic: Reports: No Symptoms Immunologic: Reports: No Symptoms Exam - Exam Exam: See Below - Vital Signs Vital Signs: Last Vital Signs Temp 97.5 F 04/22/20 11:30 Pulse 88 04/22/20 11:30 Resp 20 04/22/20 07:59 BP 132/78 04/22/20 11:30 Pulse Ox 96 04/22/20 11:30 Weight: 99.79 kg - Exam General: Alert, Oriented, Cooperative HEENT: Conjunctiva Clear, Mucosa Moist & Milo, Pupils Equal Lungs: Clear to Auscultation, Normal Respiratory Effort Cardiovascular: Regular Rate, Regular Rhythm GI/Abdominal Exam: Normal Bowel Sounds, Soft, Tender (RLQ) Back Exam: Normal Inspection, Full Range of Motion, CVA Tenderness (R). No: CVA Tenderness (L) Neuro Extensive - Mental Status: Alert, Oriented x3 Neuro Extensive - Motor, Sensory, Reflexes: CN II-XII Intact Psychiatric: Alert, Normal Affect, Normal Mood - Patient Data Lab Results Last 24 hrs: Laboratory Results - last 24 hr 04/22/20 04/22/20 04/22/20 Range/Units 05:24 05:24 05:24 WBC 15.48 H (4.0-11.0) K/uL RBC 4.95 (4.30-5.90) M/uL Hgb 14.9 (12.0-16.0) g/dL Hct 45.4 (36.0-46.0) % MCV 91.7 (80.0-98.0) fL MCH 30.1 (27.0-32.0) pg MCHC 32.8 (31.0-37.0) g/dL RDW Std Deviation 45.7 (28.0-62.0) fl RDW Coeff of Clement 14 (11.0-15.0) % Plt Count 355 (150-400) K/uL MPV 10.90 (7.40-12.00) fL Neut % (Auto) 70.7 (48.0-80.0) % Lymph % (Auto) 23.4 (16.0-40.0) % [place] % (Auto) 5.2 (0.0-15.0) % Eos % (Auto) 0.5 (0.0-7.0) % Baso % (Auto) 0.2 (0.0-1.5) % Neut # (Auto) 11.0 H (1.4-5.7) K/uL Lymph # (Auto) 3.6 H (0.6-2.4) K/uL [place] # (Auto) 0.8 (0.0-0.8) K/uL Eos # (Auto) 0.1 (0.0-0.7) K/uL Baso # (Auto) 0.0 (0.0-0.1) K/uL Nucleated RBC % 0.0 /100WBC Nucleated RBCs # 0 K/uL Sodium 137 (136-145) mmol/L Potassium 3.7 (3.5-5.1) mmol/L Chloride 99 (98-107) mmol/L Carbon Dioxide 22.4 (21.0-32.0) mmol/L BUN 8 (7.0-18.0) mg/dL Creatinine 1.1 H (0.6-1.0) mg/dL Est Cr Clr Drug Dosing 51.62 mL/min Estimated GFR (MDRD) 54.0 ml/min Glucose 248 H (74-106) mg/dL Hemoglobin A1c (4.5-6.2) % Calcium 9.7 (8.5-10.1) mg/dL Total Bilirubin 0.6 (0.2-1.0) mg/dL AST 17 (15-37) IU/L ALT 32 (14-63) IU/L Alkaline Phosphatase 74 (46-116) U/L Total Protein 8.2 (6.4-8.2) g/dL Albumin 4.5 (3.4-5.0) g/dL Globulin 3.7 (2.6-4.0) g/dL Albumin/Globulin Ratio 1.2 (0.9-1.6) HCG, Qual NEGATIVE (NEG) Urine Color Urine Appearance Urine pH (5.0-8.0) Ur Specific [place] (1.001-1.035) Urine Protein (NEGATIVE) mg/dL Urine Glucose (UA) (NEGATIVE) mg/dL Urine Ketones (NEGATIVE) mg/dL Urine Occult Blood (NEGATIVE) Urine Nitrite (NEGATIVE) Urine Bilirubin (NEGATIVE) Urine Urobilinogen (<2.0) EU/dL Ur Leukocyte Esterase (NEGATIVE) Urine RBC (0-2/HPF) Urine WBC (0-5/HPF) Ur Epithelial Cells (NONE-FEW) Urine Bacteria (NEGATIVE) Urine Mucus (NONE-MOD) Urine Opiates Screen (NEGATIVE) Ur Oxycodone Screen (NEGATIVE) Urine Methadone Screen (NEGATIVE) Ur Barbiturates Screen (NEGATIVE) Ur Phencyclidine Scrn (NEGATIVE) Ur Amphetamine Screen (NEGATIVE) U Methamphetamines Scrn (NEGATIVE) U Benzodiazepines Scrn (NEGATIVE) U Cocaine Metab Screen (NEGATIVE) U Marijuana (THC) Screen (NEGATIVE) Ethyl Alcohol < 3.0 mg/dL SARS-CoV-2 RNA (HEMANT) (NEGATIVE) 04/22/20 04/22/20 04/22/20 Range/Units 05:24 07:42 07:42 WBC (4.0-11.0) K/uL RBC (4.30-5.90) M/uL Hgb (12.0-16.0) g/dL Hct (36.0-46.0) % MCV (80.0-98.0) fL MCH (27.0-32.0) pg MCHC (31.0-37.0) g/dL RDW Std Deviation (28.0-62.0) fl RDW Coeff of Clement (11.0-15.0) % Plt Count (150-400) K/uL MPV (7.40-12.00) fL Neut % (Auto) (48.0-80.0) % Lymph % (Auto) (16.0-40.0) % [place] % (Auto) (0.0-15.0) % Eos % (Auto) (0.0-7.0) % Baso % (Auto) (0.0-1.5) % Neut # (Auto) (1.4-5.7) K/uL Lymph # (Auto) (0.6-2.4) K/uL [place] # (Auto) (0.0-0.8) K/uL Eos # (Auto) (0.0-0.7) K/uL Baso # (Auto) (0.0-0.1) K/uL Nucleated RBC % /100WBC Nucleated RBCs # K/uL Sodium (136-145) mmol/L Potassium (3.5-5.1) mmol/L Chloride (98-107) mmol/L Carbon Dioxide (21.0-32.0) mmol/L BUN (7.0-18.0) mg/dL Creatinine (0.6-1.0) mg/dL Est Cr Clr Drug Dosing mL/min Estimated GFR (MDRD) ml/min Glucose (74-106) mg/dL Hemoglobin A1c 6.7 H (4.5-6.2) % Calcium (8.5-10.1) mg/dL Total Bilirubin (0.2-1.0) mg/dL AST (15-37) IU/L ALT (14-63) IU/L Alkaline Phosphatase (46-116) U/L Total Protein (6.4-8.2) g/dL Albumin (3.4-5.0) g/dL Globulin (2.6-4.0) g/dL Albumin/Globulin Ratio (0.9-1.6) HCG, Qual (NEG) Urine Color YELLOW Urine Appearance CLEAR Urine pH 5.5 (5.0-8.0) Ur Specific [place] 1.010 (1.001-1.035) Urine Protein NEGATIVE (NEGATIVE) mg/dL Urine Glucose (UA) >=1000 (NEGATIVE) mg/dL Urine Ketones TRACE H (NEGATIVE) mg/dL Urine Occult Blood LARGE H (NEGATIVE) Urine Nitrite NEGATIVE (NEGATIVE) Urine Bilirubin NEGATIVE (NEGATIVE) Urine Urobilinogen 0.2 (<2.0) EU/dL Ur Leukocyte Esterase NEGATIVE (NEGATIVE) Urine RBC 10-15 (0-2/HPF) Urine WBC 0-2 (0-5/HPF) Ur Epithelial Cells FEW (NONE-FEW) Urine Bacteria FEW (NEGATIVE) Urine Mucus LIGHT (NONE-MOD) Urine Opiates Screen POSITIVE (NEGATIVE) Ur Oxycodone Screen NEGATIVE (NEGATIVE) Urine Methadone Screen NEGATIVE (NEGATIVE) Ur Barbiturates Screen NEGATIVE (NEGATIVE) Ur Phencyclidine Scrn NEGATIVE (NEGATIVE) Ur Amphetamine Screen NEGATIVE (NEGATIVE) U Methamphetamines Scrn NEGATIVE (NEGATIVE) U Benzodiazepines Scrn NEGATIVE (NEGATIVE) U Cocaine Metab Screen NEGATIVE (NEGATIVE) U Marijuana (THC) Screen POSITIVE (NEGATIVE) Ethyl Alcohol mg/dL SARS-CoV-2 RNA (HEMANT) (NEGATIVE) 04/22/20 Range/Units 08:41 WBC (4.0-11.0) K/uL RBC (4.30-5.90) M/uL Hgb (12.0-16.0) g/dL Hct (36.0-46.0) % MCV (80.0-98.0) fL MCH (27.0-32.0) pg MCHC (31.0-37.0) g/dL RDW Std Deviation (28.0-62.0) fl RDW Coeff of Clement (11.0-15.0) % Plt Count (150-400) K/uL MPV (7.40-12.00) fL Neut % (Auto) (48.0-80.0) % Lymph % (Auto) (16.0-40.0) % [place] % (Auto) (0.0-15.0) % Eos % (Auto) (0.0-7.0) % Baso % (Auto) (0.0-1.5) % Neut # (Auto) (1.4-5.7) K/uL Lymph # (Auto) (0.6-2.4) K/uL [place] # (Auto) (0.0-0.8) K/uL Eos # (Auto) (0.0-0.7) K/uL Baso # (Auto) (0.0-0.1) K/uL Nucleated RBC % /100WBC Nucleated RBCs # K/uL Sodium (136-145) mmol/L Potassium (3.5-5.1) mmol/L Chloride (98-107) mmol/L Carbon Dioxide (21.0-32.0) mmol/L BUN (7.0-18.0) mg/dL Creatinine (0.6-1.0) mg/dL Est Cr Clr Drug Dosing mL/min Estimated GFR (MDRD) ml/min Glucose (74-106) mg/dL Hemoglobin A1c (4.5-6.2) % Calcium (8.5-10.1) mg/dL Total Bilirubin (0.2-1.0) mg/dL AST (15-37) IU/L ALT (14-63) IU/L Alkaline Phosphatase (46-116) U/L Total Protein (6.4-8.2) g/dL Albumin (3.4-5.0) g/dL Globulin (2.6-4.0) g/dL Albumin/Globulin Ratio (0.9-1.6) HCG, Qual (NEG) Urine Color Urine Appearance Urine pH (5.0-8.0) Ur Specific [place] (1.001-1.035) Urine Protein (NEGATIVE) mg/dL Urine Glucose (UA) (NEGATIVE) mg/dL Urine Ketones (NEGATIVE) mg/dL Urine Occult Blood (NEGATIVE) Urine Nitrite (NEGATIVE) Urine Bilirubin (NEGATIVE) Urine Urobilinogen (<2.0) EU/dL Ur Leukocyte Esterase (NEGATIVE) Urine RBC (0-2/HPF) Urine WBC (0-5/HPF) Ur Epithelial Cells (NONE-FEW) Urine Bacteria (NEGATIVE) Urine Mucus (NONE-MOD) Urine Opiates Screen (NEGATIVE) Ur Oxycodone Screen (NEGATIVE) Urine Methadone Screen (NEGATIVE) Ur Barbiturates Screen (NEGATIVE) Ur Phencyclidine Scrn (NEGATIVE) Ur Amphetamine Screen (NEGATIVE) U Methamphetamines Scrn (NEGATIVE) U Benzodiazepines Scrn (NEGATIVE) U Cocaine Metab Screen (NEGATIVE) U Marijuana (THC) Screen (NEGATIVE) Ethyl Alcohol mg/dL SARS-CoV-2 RNA (HEMANT) NEGATIVE (NEGATIVE) Result Diagrams: 04/22/20 05:24 04/22/20 05:24 Sepsis Event Note - Evaluation Sepsis Screening Result: No Definite Risk - Focused Exam Vital Signs: Vital Signs Temp Pulse Resp BP Pulse Ox 04/22/20 11:30 97.5 F 88 132/78 96 04/22/20 10:38 84 149/75 H 94 L 04/22/20 09:58 88 141/79 H 93 L 04/22/20 09:28 97 132/74 92 L 04/22/20 08:58 101 H 141/89 H 95 04/22/20 08:28 95 120/63 94 L 04/22/20 07:59 94 20 117/69 96 04/22/20 06:02 146/80 H 04/22/20 05:12 96.6 F L 99 22 H 158/125 H 99 - Problem List (1) Leukocytosis SNOMED Code(s): 770260823, 136586226 ICD Code: D72.829 - ELEVATED WHITE BLOOD CELL COUNT, UNSPECIFIED Status: Acute Current Visit: Yes (2) Intractable abdominal pain SNOMED Code(s): 57039064 ICD Code: R10.9 - UNSPECIFIED ABDOMINAL PAIN Status: Acute Current Visit: Yes (3) Kidney stone SNOMED Code(s): 87821049 ICD Code: N20.0 - CALCULUS OF KIDNEY Status: Acute Current Visit: Yes (4) Depressive disorder SNOMED Code(s): 52929643 ICD Code: F32.9 - MAJOR DEPRESSIVE DISORDER, SINGLE EPISODE, UNSPECIFIED Status: Acute Current Visit: No (5) PTSD (post-traumatic stress disorder) SNOMED Code(s): 28645133 ICD Code: F43.10 - POST-TRAUMATIC STRESS DISORDER, UNSPECIFIED Status: Chronic Current Visit: Yes (6) HTN (hypertension) SNOMED Code(s): 05331220 ICD Code: I10 - ESSENTIAL (PRIMARY) HYPERTENSION Status: Chronic Current Visit: Yes Qualifiers: Hypertension type: essential hypertension Qualified Code(s): I10 - Essential (primary) hypertension (7) DM type 2 (diabetes mellitus, type 2) SNOMED Code(s): 37284471 ICD Code: E11.9 - TYPE 2 DIABETES MELLITUS WITHOUT COMPLICATIONS Status: C hronic Current Visit: Yes Qualifiers: Diabetes mellitus penitentiary insulin use: without intermediate frame tender use Diabetes mellitus complication status: with hyperglycemia Qualified Code(s): E11.65 - Type 2 diabetes mellitus with hyperglycemia (8) Tobacco abuse SNOMED Code(s): 062894464 ICD Code: Z72.0 - TOBACCO USE Status: Chronic Current Visit: Yes (9) Tobacco abuse counseling SNOMED Code(s): 024230980, 560199880, 649188396 ICD Code: Z71.6 - TOBACCO ABUSE COUNSELING Status: Acute Current Visit: Yes (10) Morbid obesity with BMI of 40.0-44.9, adult SNOMED Code(s): 003467539, 88106087402256 ICD Code: E66.01 - MORBID (SEVERE) OBESITY DUE TO EXCESS CALORIES; Z68.41 - BODY MASS INDEX [BMI]40.0-44.9, ADULT Status: Chronic Current Visit: Yes (11) Bipolar 1 disorder SNOMED Code(s): 111348579 ICD Code: F31.9 - BIPOLAR DISORDER, UNSPECIFIED Status: Chronic Current Visit: Yes (12) Anxiety SNOMED Code(s): 37078347 ICD Code: F41.9 - ANXIETY DISORDER, UNSPECIFIED Status: Chronic Current Visit: Yes Problem List Initiated/Reviewed/Updated: Yes Orders Last 24hrs: Active Orders 24 hr Category Date Time Status Patient Status [ADT] Routine ADT 04/22/20 08:55 Active Antiembolic Devices [RC] PER UNIT ROUTINE Care 04/22/20 10:51 Active Intake and Output [RC] QSHIFT Care 04/22/20 10:50 Active Oxygen Therapy [RC] PRN Care 04/22/20 10:50 Active Up With Assistance [RC] ASDIRECTED Care 04/22/20 10:50 Active VTE/DVT Education [RC] PER UNIT ROUTINE Care 04/22/20 10:50 Active Vital Signs [RC] Q4H Care 04/22/20 10:50 Active NPO [Nothing Per Oral Diet] [DIET] Diet 04/22/20 Lunch Active BASIC METABOLIC PANEL,BMP [CHEM] AM Lab 04/23/20 05:11 Ordered CBC WITH AUTO DIFF [HEME] AM Lab 04/23/20 05:11 Ordered Dextrose 50% in Water Med 04/22/20 11:51 Ordered 50 ml IV ASDIRECTED PRN Docusate Sodium [Colace] Med 04/22/20 10:50 Active 100 mg PO BID PRN Glucagon,Human Recombinant [GlucaGen] Med 04/22/20 11:51 Ordered 1 mg IM ASDIRECTED PRN HYDROmorphone [Dilaudid] Med 04/22/20 11:51 Ordered 1 mg IVPUSH Q3H PRN Insulin Aspart [NovoLOG] Med 04/22/20 12:00 Ordered See Protocol SUBCUT Q6H Ondansetron [Zofran] Med 04/22/20 10:50 Active 4 mg IVPUSH Q4H PRN Sodium Chloride 0.9% [Normal Saline] 1,000 ml Med 04/22/20 12:00 Ordered IV Q8H Sodium Chloride 0.9% [Saline Flush] Med 04/22/20 10:50 Active 2.5 ml FLUSH ASDIRECTED PRN cefTRIAXone [Rocephin in Dextrose,Iso-Osm 1 GM/50 ML] 1 Med 04/22/20 11:45 Ordered gm Premix Bag 1 bag IV Q24H Saline Lock Insert [OM.PC] Routine Oth 04/22/20 10:50 Ordered Sequential Compression Device [OM.PC] Per Unit Routine Oth 04/22/20 10:51 Ordered Resuscitation Status Routine Resus Stat 04/22/20 10:50 Ordered Medication Orders Dextrose/Water (Dextrose 50% In Water) 50 ml IV ASDIRECTED PRN PRN Reason: Hypoglycemia Docusate Sodium (Colace) 100 mg PO BID PRN PRN Reason: Constipation Glucagon (Glucagen) 1 mg IM ASDIRECTED PRN PRN Reason: Hypoglycemia Hydromorphone HCl (Dilaudid) 1 mg IVPUSH Q3H PRN PRN Reason: Pain Ceftriaxone Sodium/Dextrose 1 (gm/ Premix) 50 mls @ 100 mls/hr IV Q24H [facility] Sodium Chloride (Normal Saline) 1,000 mls @ 125 mls/hr IV Q8H [facility] Insulin Aspart (Novolog) 0 unit SUBCUT Q6H [facility]; Protocol Ondansetron HCl (Zofran) 4 mg IVPUSH Q4H PRN PRN Reason: Nausea Sodium Chloride (Saline Flush) 2.5 ml FLUSH ASDIRECTED PRN PRN Reason: Keep Vein Open Last Admin: 04/22/20 10:58 Dose: 2.5 ml Documented by: MARYAM Assessment/Plan Comment:: This 44-year-old female admitted with abdominal pain and renal stones. 1. Abdominal pain/renal stones -N.p.o. for now -I did speak with Dr. Noonan regarding CT findings of large renal stone, he will review CT and get back to hospitalist team with recommendations. -Due to leukocytosis will add on Rocephin 1 g IV daily -Dilaudid as needed pain -Zofran and Phenergan as needed nausea -NS 125 ml/hr overnight -Monitor lab work in the morning 2. Hypertension -Monitor blood pressures -Restart home medications 3. DM type II -NovoLog sliding scale every 6 hours while n.p.o. -Consult DM educator 4. PTSD/Bipolar/Anxiety/Depression -Restart home medications. VTE prophylaxis; SCDs and ambulation Dispo: 1 - 2 days - Mortality Measure Prognosis:: Good
[2020-04-22] MEDS: cefTRIAXone 1 GM in Premix Bag 1 BAG IV SCH (12:16)
[2020-04-22] MEDS: Insulin Aspart 100 Units/ML 3 ML Pen SUBCUT SCH ×2 (12:17→18:40)
[2020-04-22] MEDS: Sodium Chloride 0.9% 1,000 ML IV SCH ×2 (13:10→20:20)
[2020-04-22] MEDS: HYDROmorphone 1 MG/ML Syringe IVPUSH PRN ×2 (15:13→20:21)
[2020-04-22] MEDS: LAMOTRIGINE 50 MG PO SCH (20:24)
[2020-04-22] MEDS ORDERED: Escitalopram 10 MG Tab PO SCH (21:00)
[2020-04-23] MEDS: Insulin Aspart 100 Units/ML 3 ML Pen SUBCUT SCH ×3 (00:42→15:41)
[2020-04-23] MEDS: HYDROmorphone 1 MG/ML Syringe IVPUSH PRN ×2 (00:49→06:54)
[2020-04-23] MEDS: Sodium Chloride 0.9% 1,000 ML IV SCH (04:31)
[2020-04-23 06:32] LABS: BLOOD UREA NITROGEN,BUN 7 mg/dL (7.0-18.0); CHLORIDE,CL 105 mmol/L (98-107); GLUCOSE RANDOM 100 mg/dL (74-106); POTASSIUM,K 3.6 mmol/L (3.5-5.1); SODIUM,NA 139 mmol/L (136-145)
[2020-04-23] MEDS ORDERED: oxyCODONE 5 MG Tab PO PRN (08:54)
[2020-04-23] MEDS: LAMOTRIGINE 50 MG PO SCH (08:56)
--- NOTE | 2020-04-23 11:11 | PCM.DCSUM1 ---
Discharge Summary - Hospital Course Brief History: This 44-year-old female with past medical history of chronic abdominal pain recent umbilical hernia surgery, hypertension, obesity, tobacco abuse and untreated DM type II presented to the ER with continued right lower quadrant abdominal pain and CVA pain. She has been seen in the ER a couple times in the past week and a half. She was noted to have a UTI was treated with Cipro UC returned with mixed miles greater than 100,000. Today she is reporting nausea and vomiting along with abdominal pain that is sharp shooting and spasming intermittently, radiating to her groin. She reports blood in her urine. She denies any vaginal bleeding or menstruation currently. She denies any dysuria or frequency urgency. She reports mild diarrhea this morning. No fevers or chills. No neck pain no chest pain or shortness of breath. Denies any focal neurological deficits. She denies any history of renal stones in the past. She denies any history of CAD. Reports that she has not been on any medications for diabetes and does not watch her diet or blood sugars at home. She denies any alcohol use, she is currently quitting tobacco use, and is also quitting marijuana use. In the ER leukocytosis of 15,000 was noted. Creatinine 1.1, slightly elevated from baseline. Glucose noted to be 248. CT of her abdomen revealed 2 x 1 cm stone in the right renal pelvis with minimal calyectasis on the right, no brian hydronephrosis, no other stones. Small ventral hernia is noted without inflammatory changes. No free air or fluid collection. In the ER she was treated with normal saline along with Haldol and Dilaudid for pain and nausea. She will be admitted observation with abdominal pain and renal stone. Diagnosis: Stroke: No Modified Parker Scale: No Symptoms at All Modified Roxanna Scale Score: 0 - Discharge Data Discharge Date: 04/23/20 Discharge Disposition: Home, Self-Care 01 Condition: Good - Referral to Home Health Primary Care Physician: PCP None - Discharge Diagnosis/Problem(s) (1) Leukocytosis SNOMED Code(s): 405232844, 968667667 ICD Code: D72.829 - ELEVATED WHITE BLOOD CELL COUNT, UNSPECIFIED Status: Acute Current Visit: Yes (2) Intractable abdominal pain SNOMED Code(s): 63412498 ICD Code: R10.9 - UNSPECIFIED ABDOMINAL PAIN Status: Acute Current Visit: Yes (3) Kidney stone SNOMED Code(s): 93702306 ICD Code: N20.0 - CALCULUS OF KIDNEY Status: Acute Current Visit: Yes (4) Depressive disorder SNOMED Code(s): 22326848 ICD Code: F32.9 - MAJOR DEPRESSIVE DISORDER, SINGLE EPISODE, UNSPECIFIED Status: Acute Current Visit: No (5) PTSD (post-traumatic stress disorder) SNOMED Code(s): 48559920 ICD Code: F43.10 - POST-TRAUMATIC STRESS DISORDER, UNSPECIFIED Status: Chronic Current Visit: Yes (6) HTN (hypertension) SNOMED Code(s): 99011845 ICD Code: I10 - ESSENTIAL (PRIMARY) HYPERTENSION Status: Chronic Current Visit: Yes Qualifiers: Hypertension type: essential hypertension Qualified Code(s): I10 - Essential (primary) hypertension (7) DM type 2 (diabetes mellitus, type 2) SNOMED Code(s): 04265608 ICD Code: E11.9 - TYPE 2 DIABETES MELLITUS WITHOUT COMPLICATIONS Status: Chronic Current Visit: Yes Qualifiers: Diabetes mellitus tester waste disposal leakage insulin use: without tester waste disposal leakage use Diabetes mellitus complication status: with hyperglycemia Qualified Code(s): E11.65 - Type 2 diabetes mellitus with hyperglycemia (8) Tobacco abuse SNOMED Code(s): 525474693 ICD Code: Z72.0 - TOBACCO USE Status: Chronic Current Visit: Yes (9) Tobacco abuse counseling SNOMED Code(s): 807374032, 855799356, 599450482 ICD Code: Z71.6 - TOBACCO ABUSE COUNSELING Status: Acute Current Visit: Y es (10) Morbid obesity with BMI of 40.0-44.9, adult SNOMED Code(s): 046877709, 23267557106226 ICD Code: E66.01 - MORBID (SEVERE) OBESITY DUE TO EXCESS CALORIES; Z68.41 - BODY MASS INDEX [BMI]40.0-44.9, ADULT Status: Chronic Current Visit: Yes (11) Bipolar 1 disorder SNOMED Code(s): 549476070 ICD Code: F31.9 - BIPOLAR DISORDER, UNSPECIFIED Status: Chronic Current Visit: Yes (12) Anxiety SNOMED Code(s): 12996605 ICD Code: F41.9 - ANXIETY DISORDER, UNSPECIFIED Status: Chronic Current Visit: Yes - Patient Summary/Data Consults: Consultations 04/22/20 12:48 Consult to DM [Consult to Diabetic Nurse Specialist] [CONS] Routine Hospital Course: This 44-year-old female was admitted with abdominal pain and found to have a large right renal pelvis stone that is nonobstructing. Has mild hematuria noted on UA. She has taken Dilaudid overnight of couple times. Today is feeling better and is wanting to eat. Pain continues but has improved. She was i nstructed to stay very hydrated limit caffeine any sodas or teas. She is to follow-up with Dr. Noonan as an outpatient. He did review CT scan and felt that outpatient and elective surgery was recommended for her. Leukocytosis and slightly elevated creatinine has improved with hydration. She was treated with Rocephin 1 g IV every 24 hours. She will be sent home with Keflex for 5 more days. She will be given oxycodone 5 mg by mouth every 8 hours. Pain 5 tabs no refills. She is return to the ER or clinic if concerns should arise sooner. - Patient Instructions Diet: Diabetic Diet Activity: As Tolerated, No Strenuous Activities Driving: Do Not Drive Showering/Bathing: May Shower Notify Provider of: Fever, Increased Pain, Swelling and Redness, Drainage, Nausea and/or Vomiting - Discharge Plan *PRESCRIPTION DRUG MONITORING PROGRAM REVIEWED*: Not Applicable *COPY OF PRESCRIPTION DRUG MONITORING REPORT IN PATIENT CAMPOS: Not Applicable Prescriptions/Med Rec: cephALEXin [Keflex] 500 mg PO Q12H #10 capsule oxyCODONE 5 mg PO Q8H PRN #5 tablet PRN Reason: Pain Home Medications: Home Meds Dextroamphetamine/Amphetamine [Adderall] 30 mg PO BID 08/20/18 [History] Escitalopram Oxalate [Lexapro] 20 mg PO BEDTIME 08/20/18 [History] lamoTRIgine [Lamictal XR] 100 mg PO BEDTIME 08/20/18 [History] Losartan/Hydrochlorothiazide [Losartan-HCTZ 50-12.5 MG] 1 tab PO BEDTIME 08/22/19 [History] Sulfamethoxazole/Trimethoprim [Bactrim Ds Tablet] 1 each PO BID 7 Days #14 tablet 04/06/20 [Rx] Ciprofloxacin HCl [Cipro] 500 mg PO BID 7 Days #14 tablet 04/19/20 [Rx] Docusate Sodium [Colace] 100 mg PO BID PRN cap 04/23/20 [Rx] cephALEXin [Keflex] 500 mg PO Q12H #10 capsule 04/23/20 [Rx] oxyCODONE 5 mg PO Q8H PRN #5 tablet 04/23/20 [Rx] Oxygen Therapy Mode: Room Air Referrals: Merlene Pepe NP [Ordering Only Provider] - (7-10 days) Bailee Noonan MD [Physician] - (needs to be seen in 1 week) - Discharge Summary/Plan Comment DC Time >30 min.: No - Patient Data Vitals - Most Recent: Last Vital Signs Temp 96.9 F 04/23/20 07:30 Pulse 80 04/23/20 07:30 Resp 17 04/23/20 07:30 BP 130/82 04/23/20 07:30 Pulse Ox 93 L 04/23/20 07:30 Weight - Most Recent: 99.79 kg I&O - Last 24 hours: Intake & Output 04/22/20 04/23/20 04/23/20 22:59 06:59 14:59 Intake Total 850 1800 Output Total 600 Balance 850 1200 Lab Results - Last 24 hrs: Laboratory Results - last 24 hr 04/22/20 04/22/20 04/22/20 Range/Units 05:24 11:50 17:55 WBC (4.0-11.0) K/uL RBC (4.30-5.90) M/uL Hgb (12.0-16.0) g/dL Hct (36.0-46.0) % MCV (80.0-98.0) fL MCH (27.0-32.0) pg MCHC (31.0-37.0) g/dL RDW Std Deviation (28.0-62.0) fl RDW Coeff of Clement (11.0-15.0) % Plt Count (150-400) K/uL MPV (7.40-12.00) fL Neut % (Auto) (48.0-80.0) % Lymph % (Auto) (16.0-40.0) % [place] % (Auto) (0.0-15.0) % Eos % (Auto) (0.0-7.0) % Baso % (Auto) (0.0-1.5) % Neut # (Auto) (1.4-5.7) K/uL Lymph # (Auto) (0.6-2.4) K/uL [place] # (Auto) (0.0-0.8) K/uL Eos # (Auto) (0.0-0.7) K/uL Baso # (Auto) (0.0-0.1) K/uL Nucleated RBC % /100WBC Nucleated RBCs # K/uL Sodium (136-145) mmol/L Potassium (3.5-5.1) mmol/L Chloride (98-107) mmol/L Carbon Dioxide (21.0-32.0) mmol/L BUN (7.0-18.0) mg/dL Creatinine (0.6-1.0) mg/dL Est Cr Clr Drug Dosing mL/min Estimated GFR (MDRD) ml/min Glucose (74-106) mg/dL POC Glucose 99 91 (60-110) mg/dL Hemoglobin A1c 6.7 H (4.5-6.2) % Calcium (8.5-10.1) mg/dL 04/23/20 04/23/20 04/23/20 Range/Units 00:41 05:10 05:10 WBC 7.13 (4.0-11.0) K/uL RBC 4.11 L (4.30-5.90) M/uL Hgb 12.2 (12.0-16.0) g/dL Hct 38.6 (36.0-46.0) % MCV 93.9 (80.0-98.0) fL MCH 29.7 (27.0-32.0) pg MCHC 31.6 (31.0-37.0) g/dL RDW Std Deviation 47.6 (28.0-62.0) fl RDW Coeff of Clement 14 (11.0-15.0) % Plt Count 278 (150-400) K/uL MPV 10.90 (7.40-12.00) fL Neut % (Auto) 44.9 L (48.0-80.0) % Lymph % (Auto) 44.7 H (16.0-40.0) % [place] % (Auto) 7.6 (0.0-15.0) % Eos % (Auto) 2.5 (0.0-7.0) % Baso % (Auto) 0.3 (0.0-1.5) % Neut # (Auto) 3.2 (1.4-5.7) K/uL Lymph # (Auto) 3.2 H (0.6-2.4) K/uL [place] # (Auto) 0.5 (0.0-0.8) K/uL Eos # (Auto) 0.2 (0.0-0.7) K/uL Baso # (Auto) 0.0 (0.0-0.1) K/uL Nucleated RBC % 0.0 /100WBC Nucleated RBCs # 0 K/uL Sodium 139 (136-145) mmol/L Potassium 3.6 (3.5-5.1) mmol/L Chloride 105 (98-107) mmol/L Carbon Dioxide 28.0 (21.0-32.0) mmol/L BUN 7 (7.0-18.0) mg/dL Creatinine 0.7 (0.6-1.0) mg/dL Est Cr Clr Drug Dosing 81.11 mL/min Estimated GFR (MDRD) > 60.0 ml/min Glucose 100 (74-106) mg/dL POC Glucose 95 (60-110) mg/dL Hemoglobin A1c (4.5-6.2) % Calcium 8.2 L (8.5-10.1) mg/dL 04/23/20 Range/Units 05:27 WBC (4.0-11.0) K/uL RBC (4.30-5.90) M/uL Hgb (12.0-16.0) g/dL Hct (36.0-46.0) % MCV (80.0-98.0) fL MCH (27.0-32.0) pg MCHC (31.0-37.0) g/dL RDW Std Deviation (28.0-62.0) fl RDW Coeff of Clement (11.0-15.0) % Plt Count (150-400) K/uL MPV (7.40-12.00) fL Neut % (Auto) (48.0-80.0) % Lymph % (Auto) (16.0-40.0) % [place] % (Auto) (0.0-15.0) % Eos % (Auto) (0.0-7.0) % Baso % (Auto) (0.0-1.5) % Neut # (Auto) (1.4-5.7) K/uL Lymph # (Auto) (0.6-2.4) K/uL [place] # (Auto) (0.0-0.8) K/uL Eos # (Auto) (0.0-0.7) K/uL Baso # (Auto) (0.0-0.1) K/uL Nucleated RBC % /100WBC Nucleated RBCs # K/uL Sodium (136-145) mmol/L Potassium (3.5-5.1) mmol/L Chloride (98-107) mmol/L Carbon Dioxide (21.0-32.0) mmol/L BUN (7.0-18.0) mg/dL Creatinine (0.6-1.0) mg/dL Est Cr Clr Drug Dosing mL/min Estimated GFR (MDRD) ml/min Glucose (74-106) mg/dL POC Glucose 98 (60-110) mg/dL Hemoglobin A1c (4.5-6.2) % Calcium (8.5-10.1) mg/dL Med Orders - Current: Current Medications Dextrose/Water (Dextrose 50% In Water) 50 ml IV ASDIRECTED PRN PRN Reason: Hypoglycemia Docusate Sodium (Colace) 100 mg PO BID PRN PRN Reason: Constipation Escitalopram Oxalate (Lexapro) 20 mg PO BEDTIME [facility] Last Admin: 04/22/20 20:24 Dose: 20 mg Documented by: Glucagon (Glucagen) 1 mg IM ASDIRECTED PRN PRN Reason: Hypoglycemia Ceftriaxone Sodium/Dextrose 1 (gm/ Premix) 50 mls @ 100 mls/hr IV Q24H [facility] Last Admin: 04/22/20 12:16 Dose: 100 mls/hr Documented by: Sodium Chloride (Normal Saline) 1,000 mls @ 125 mls/hr IV Q8H [facility] Last Admin: 04/23/20 04:31 Dose: 125 mls/hr Documented by: Insulin Aspart (Novolog) 0 unit SUBCUT Q6H [facility]; Protocol Last Admin: 04/23/20 05:45 Dose: Not Given Documented by: Lamotrigine (Lamotrigine) 50 mg PO BID [facility] Last Admin: 04/23/20 08:56 Dose: 50 mg Documented by: Ondansetron HCl (Zofran) 4 mg IVPUSH Q4H PRN PRN Reason: Nausea Oxycodone HCl (Oxycodone) 5 mg PO Q4H PRN PRN Reason: Pain Last Admin: 04/23/20 09:51 Dose: 5 mg Documented by: Sodium Chloride (Saline Flush) 2.5 ml FLUSH ASDIRECTED PRN PRN Reason: Keep Vein Open Last Admin: 04/22/20 10:58 Dose: 2.5 ml Documented by: Discontinued Medications Haloperidol Lactate (Haldol) 3 mg IM ONETIME ONE Stop: 04/22/20 09:58 Last Admin: 04/22/20 10:06 Dose: 3 mg Documented by: Hydromorphone HCl (Dilaudid) 1 mg IVPUSH ONETIME ONE Stop: 04/22/20 05:05 Last Admin: 04/22/20 05:27 Dose: 1 mg Documented by: Hydromorphone HCl (Dilaudid) 1 mg IVPUSH ONETIME ONE Stop: 04/22/20 07:44 Last Admin: 04/22/20 07:54 Dose: 1 mg Documented by: Hydromorphone HCl (Dilaudid) 1 mg IVPUSH Q3H PRN PRN Reason: Pain Last Admin: 04/23/20 06:54 Dose: 1 mg Documented by: Dextrose/Lactated Ringer's (Dextrose 5%-Lactated Ringers) 1,000 mls @ 999 mls/hr IV ASDIRECTED [facility] Last Admin: 04/22/20 05:25 Dose: 999 mls/hr Documented by: Sodium Chloride (Normal Saline) 1,000 mls @ 999 mls/hr IV .Bolus ONE Stop: 04/22/20 07:37 Last Admin: 04/22/20 07:53 Dose: 999 mls/hr Documented by: Sodium Chloride (Normal Saline) 1,000 mls @ 125 mls/hr IV ASDIRECTED [facility] Last Admin: 04/22/20 10:57 Dose: 125 mls/hr Documented by: Iopamidol (Isovue-370 (76%)) 80 ml IVPUSH ONETIME STA Stop: 04/22/20 06:22 Last Admin: 04/22/20 06:22 Dose: 80 ml Documented by: Ondansetron HCl (Zofran) Confirm Administered Dose 4 mg .ROUTE .STK-MED ONE Stop: 04/22/20 05:23 Last Admin: 04/22/20 05:29 Dose: Not Given Documented by: Ondansetron HCl (Zofran) 4 mg IVPUSH ONETIME ONE Stop: 04/22/20 05:26 Last Admin: 04/22/20 05:26 Dose: 4 mg Documented by:
[2020-04-23] MEDS: cefTRIAXone 1 GM in Premix Bag 1 BAG IV SCH (12:04)
== END 2020-04-23 14:00 | disposition home or self-care (01) ==
LOC: MW.ED 04:30 → MW.MS 08:55
PROVIDERS: ADMIT Internal Medicine; ATTEND Internal Medicine
DX: G89.29 Other chronic pain (principal); R10.31 Right lower quadrant pain; I10 Essential (primary) hypertension; E66.9 Obesity, unspecified; N39.0 Urinary tract infection, site not specified; F32.9 Major depressive disorder, single episode, unspecified; F17.210 Nicotine dependence, cigarettes, uncomplicated; D72.829 Elevated white blood cell count, unspecified; N20.0 Calculus of kidney; F43.10 Post-traumatic stress disorder, unspecified; E11.65 Type 2 diabetes mellitus with hyperglycemia; F41.9 Anxiety disorder, unspecified; Z20.828 Contact with and (suspected) exposure to other viral communicable diseases; Z88.8 Allergy status to other drugs, medicaments and biological substances; Z68.41 Body mass index [BMI] 40.0-44.9, adult; Z91.040 Latex allergy status; Z88.0 Allergy status to penicillin; Z88.5 Allergy status to narcotic agent; Z91.018 Allergy to other foods; Z91.09 Other allergy status, other than to drugs and biological substances
CPT/HCPCS: 36415; 74178; 80048; 80053; 80305; 80307; 81001; 82962; 83036; 84703; 85025; 96372; 96374; 96375; 96376; 99285; A9270; J0696; J1170; J1630; J2405; J7030; J7121; Q9967; U0002; 96361; 99217; 99219; G0378; J1815-GY

== ENCOUNTER 2020-04-29 12:05 | Emergency (ER) | payer MEDICARE, OTHER | END 2020-04-29 12:35 | disposition left against medical advice (07) | LOC: MW.ED 12:05 | DX: Z53.21 Procedure and treatment not carried out due to patient leaving prior to being seen by health care provider (principal) ==

== ENCOUNTER 2020-05-01 07:16 | Day surgery (SDC) | payer MEDICARE, OTHER ==
[~2020-05-01 07:16] MED LIST: Lactated Ringers 1,000 ML IV SCH; Sodium Chloride 0.9% 10 ML SDV IV PRN; Sodium Chloride 0.9% 10 ML Syringe FLUSH PRN; Sodium Chloride 0.9% 2.5 ML Syringe FLUSH PRN
[2020-05-01] MEDS ORDERED: Midazolam 1 MG/ML 2 ML SDV ONE (07:41)
[2020-05-01] MEDS ORDERED: fentaNYL 100 MCG/2 ML SDV ONE ×2 (07:41→09:44)
[2020-05-01] MEDS ORDERED: Propofol 200 MG/20 ML SDV ONE (07:41)
[2020-05-01] MEDS ORDERED: Ondansetron 4 MG/2 ML SDV ONE (07:42)
[2020-05-01] MEDS ORDERED: Dexamethasone 4 MG/ML 5 ML MDV ONE (07:42)
[2020-05-01] MEDS ORDERED: Rocuronium Bromide 50 MG/5 ML Syringe ONE (07:43)
[2020-05-01] MEDS ORDERED: Succinylcholine/Sod PF 100 MG/5 ML SYRINGE IV ONE (07:43)
--- NOTE | 2020-05-01 08:56 | PCM.PREANE ---
Preanesthetic Assessment - Anesthesia/Transfusion/Family Hx Anesthesia History: Prior Anesthesia Without Reaction Family History of Anesthesia Reaction: No Transfusion History: Prior Transfusion Without Reaction - Review of Systems General: No Symptoms Pulmonary: No Symptoms Cardiovascular: No Symptoms Gastrointestinal: Abdominal Pain Neurological: No Symptoms Other: Reports: None - Physical Assessment NPO Status Date: 04/30/20 Height: 5 ft 2 in Weight: 102.058 kg ASA Class: 3 Mental Status: Alert & Oriented x3 Airway Class: Mallampati = 2 Dentition: Reports: Normal Dentition ROM/Head Extension: Full Lungs: Clear to Auscultation, Normal Respiratory Effort Cardiovascular: Regular Rate, Regular Rhythm - Lab Values: Laboratory Last Values Urine HCG, Qual NEGATIVE (NEGATIVE) 05/01/20 08:25 SARS-CoV-2 RNA (HEMANT) NEGATIVE (NEGATIVE) 05/01/20 07:30 - Allergies Allergies/Adverse Reactions: Allergies Allergy/AdvReac Type Severity Reaction Status Date / Time acetaminophen [From [place]] Allergy Hives Verified 04/29/20 15:17 aspirin Allergy Bleeding Verified 04/29/20 15:17 banana Allergy Hives Verified 04/22/20 11:28 hydrocodone [From [place]] Allergy Hives Verified 04/29/20 15:17 ibuprofen Allergy Bleeding Verified 04/29/20 15:17 latex Allergy Hives Verified 04/29/20 15:17 metformin Allergy Vomiting Verified 04/29/20 15:17 morphine Allergy Headache Verified 04/29/20 15:17 Penicillins Allergy Hives Verified 04/29/20 15:17 tape Allergy Hives Uncoded 04/22/20 11:28 - Blood Blood Available: No - Anesthesia Plan Pre-Op Medication Ordered: None - Acknowledgements Anesthesia Type Planned: General Anesthesia Pt an Appropriate Candidate for the Planned Anesthesia: Yes Alternatives and Risks of Anesthesia Discussed w Pt/Guardian: Yes Pt/Guardian Understands and Agrees with Anesthesia Plan: Yes Additional Comments: PMH: MO, DM2, anx, bipolar, adhd, htn, multiple allergies PLAN: get PreAnesthesia Questionnaire - Past Health History Medical/Surgical History: Denies Medical/Surgical History HEENT History: Reports: None Cardiovascular History: Reports: Hypertension Respiratory History: Reports: None Gastrointestinal History: Reports: GERD, GI Bleed Genitourinary History: Reports: UTI, Recurrent [employer]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: Musculoskeletal History: Reports: Fracture Other Musculoskeletal History: hx fx wrist and leg Neurological History: Reports: None Psychiatric History: Reports: Anxiety, Bipolar, Depression, PTSD Endocrine/Metabolic History: Reports: Diabetes, Type II, Obesity/BMI 30+ Hematologic History: Reports: Anemia, Blood Transfusion(s) Other Hematologic History: states she bleeds easily Immunologic History: Reports: None Oncologic (Cancer) History: Reports: None Dermatologic History: Reports: None - Infectious Disease History Infectious Disease History: Reports: None - Past Surgical History Head Surgeries/Procedures: Reports: None HEENT Surgical History: Reports: Tonsillectomy Cardiovascular Surgical History: Reports: None Respiratory Surgical History: Reports: None GI Surgical History: Reports: Hernia, Abdominal Female Surgical History: Reports: Tubal Ligation, Other (See Below) Other Female Surgeries/Procedures: ureteral dilation at the age of 5 Endocrine Surgical History: Reports: None Neurological Surgical History: Reports: None Musculoskeletal Surgical History: Reports: None Oncologic Surgical History: Reports: None Dermatological Surgical History: Reports: None - HOME MEDS Home Medications: Home Meds Dextroamphetamine/Amphetamine [Adderall] 30 mg PO BID 08/20/18 [History] Escitalopram Oxalate [Lexapro] 20 mg PO BEDTIME 08/20/18 [History] lamoTRIgine [Lamictal XR] 100 mg PO BEDTIME 08/20/18 [History] Losartan/Hydrochlorothiazide [Losartan-HCTZ 50-12.5 MG] 1 tab PO BEDTIME 08/22/19 [History] Acetaminophen [Tylenol Extra Strength] 2 tab PO ASDIRECTED PRN 04/29/20 [History] - CURRENT (IN HOUSE) MEDS Current Meds: Current Medications Lactated Ringer's (Ringers, Lactated) 1,000 mls @ 100 mls/hr IV ASDIRECTED [facility] Sodium Chloride (Saline Flush) 2.5 ml FLUSH ASDIRECTED PRN PRN Reason: Keep Vein Open Sodium Chloride (Normal Saline) 10 ml IV ASDIRECTED PRN PRN Reason: IV Use Sodium Chloride (Saline Flush) 10 ml FLUSH ASDIRECTED PRN PRN Reason: Keep Vein Open Discontinued Medications Dexamethasone (Dexamethasone) Confirm Administered Dose 20 mg .ROUTE .STK-MED ONE Stop: 05/01/20 07:43 Fentanyl (Sublimaze) Confirm Administered Dose 100 mcg .ROUTE .STK-MED ONE Stop: 05/01/20 07:42 Lidocaine HCl (Xylocaine-Mpf 1%) Confirm Administered Dose 5 ml .ROUTE .STK-MED ONE Stop: 05/01/20 07:43 Midazolam HCl (Versed 1 Mg/Ml) Confirm Administered Dose 2 mg .ROUTE .STK-MED ONE Stop: 05/01/20 07:42 Ondansetron HCl (Zofran) Confirm Administered Dose 4 mg .ROUTE .STK-MED ONE Stop: 05/01/20 07:43 Propofol (Diprivan 20 Ml) Confirm Administered Dose 200 mg .ROUTE .STK-MED ONE Stop: 05/01/20 07:42 Rocuronium Spencer (Rocuronium Spencer) Confirm Administered Dose 50 mg .ROUTE .STK-MED ONE Stop: 05/01/20 07:44
[2020-05-01] MEDS ORDERED: HYDROmorphone 2 MG/ML Syringe ONE (09:49)
[2020-05-01] MEDS ORDERED: Sodium Chloride 0.9% 20 ML ONE (09:49)
[2020-05-01] MEDS ORDERED: Glycopyrrolate 0.2 MG/ML SDV ONE (09:52)
[2020-05-01] MEDS ORDERED: ePHEDrine 50 MG/ML SDV ONE (09:53)
[2020-05-01] MEDS ORDERED: Phenylephrine 1% 10 MG/ML SDV ONE (09:58)
--- NOTE | 2020-05-01 10:06 | CR ---
INDICATION: Pain pre-surgery. Looking to see if stone has moved. COMPARISON: CT of the abdomen and pelvis 04/22/2020. TECHNIQUE: Two view abdomen and pelvis. FINDINGS: There is a 2.5 cm calculus in the region of the right renal pelvis similar to prior exam. A linear calcific density in the right pelvis is most likely vascular nature. Multiple pelvic phleboliths. Nonobstructive bowel gas pattern. Surgical clips right upper quadrant. IMPRESSION: 2.5 cm calculus in the region of the right renal pelvis. Dictated by Marybel Salgado MD @ May 01 2020 10:00AM Signed by Dr. Marybel Salgado @ May 01 2020 10:04AM
[2020-05-01] MEDS ORDERED: fentaNYL 100 MCG/2 ML SDV IVPUSH PRN (10:09)
[2020-05-01] MEDS ORDERED: Iopamidol 408 MG/ML 20 ML SDV ONE (10:23)
[2020-05-01] MEDS ORDERED: Acetaminophen 500 MG Tab PO PRN (10:48)
--- NOTE | 2020-05-01 11:04 | PCM.POSTAN ---
POST ANESTHESIA ASSESSMENT - MENTAL STATUS Mental Status: Alert, Oriented - VITAL SIGNS Vital Signs: Last Vital Signs Temp 98.6 F 05/01/20 10:43 Pulse 102 H 05/01/20 10:59 Resp 18 05/01/20 10:59 BP 144/75 H 05/01/20 10:59 Pulse Ox 94 L 05/01/20 10:59 - RESPIRATORY Respiratory Status: Respiratory Rate WNL, Airway Patent, O2 Saturation Stable - CARDIOVASCULAR CV Status: Pulse Rate WNL - GASTROINTESTINAL GI Status: No Symptoms - POST OP HYDRATION Hydration Status: Adequate & Stable
--- NOTE | 2020-05-01 11:44 | PCM48HPAN ---
Post Anesthesia Note - EVALUATION WITHIN 48HRS OF ANESTHETIC Vital Signs in Normal Range: Yes Patient Participated in Evaluation: Yes Respiratory Function Stable: Yes Airway Patent: Yes Cardiovascular Function Stable: Yes Hydration Status Stable: Yes Pain Control Satisfactory: Yes Nausea and Vomiting Control Satisfactory: Yes Mental Status Recovered: Yes Vital Signs: Last Vital Signs Temp 98.6 F 05/01/20 10:43 Pulse 102 H 05/01/20 10:59 Resp 18 05/01/20 10:59 BP 144/75 H 05/01/20 10:59 Pulse Ox 94 L 05/01/20 10:59
--- NOTE | 2020-05-01 12:43 | OR ---
SURGEON: Bailee Noonan M.D. DATE OF PROCEDURE: 05/01/2020 PREOPERATIVE DIAGNOSIS: Right renal pelvis stone, 1.5 cm. POSTOPERATIVE DIAGNOSIS: Right renal pelvis stone, 1.5 cm. OPERATIONS PERFORMED: Extracorporeal shockwave lithotripsy plus cystoscopy with double-J stent placement. DESCRIPTION OF PROCEDURE: The patient was given general anesthesia. She was on the lithotripsy table. The position of the patient was adjusted so the stone could be treated and eventually received a total of 2500 shocks. At the end of the treatment, starting with the stone that was only barely identifiable on the fluoroscopy and now appears broken, but the extent of the break-up is not clearly evaluable. With that done, the procedure was terminated. The patient was then placed in dorsal lithotomy position and prepped and draped with sterile drapes. Cystourethroscopy was done. A guidewire was advanced into the right ureter all the way up into the renal pelvis over which a 6-Omani 26 centimeter double-J stent was placed. Position was confirmed with fluoroscopy. The bladder was emptied, and the patient was rolled to the recovery room in good condition. PLAN: I will see her in roughly about 4 weeks. We will get another CT scan and take it from there. A piece of the stone was collected from the bladder at the end of the treatment and was sent for analysis. CHRIS / NGA /[id number]
[2020-05-01] MEDS ORDERED: LAMOTRIGINE 100 MG PO SCH (21:00)
[2020-05-01] MEDS ORDERED: Non-Formulary Medication 1 Each (Dextroamphetamine/Amphetamine [Adderall] 30 MG) PO SCH (21:00)
[2020-05-01] MEDS ORDERED: Non-Formulary Medication 1 Each (Escitalopram 20 MG) PO SCH (21:00)
[2020-05-01] MEDS ORDERED: Hydrochlorothiazide/Losartan 12.5-50 mg Tab PO SCH (21:00)
== END 2020-05-01 12:20 | disposition home or self-care (01) ==
LOC: MW.SDS 07:16
PROVIDERS: ATTEND Urology
DX: N20.0 Calculus of kidney (principal); E11.9 Type 2 diabetes mellitus without complications; F17.200 Nicotine dependence, unspecified, uncomplicated; F41.9 Anxiety disorder, unspecified; I10 Essential (primary) hypertension; E66.9 Obesity, unspecified; Z01.812 Encounter for preprocedural laboratory examination; Z20.828 Contact with and (suspected) exposure to other viral communicable diseases; Z88.8 Allergy status to other drugs, medicaments and biological substances; Z88.0 Allergy status to penicillin; Z91.040 Latex allergy status; Z88.5 Allergy status to narcotic agent; Z91.018 Allergy to other foods; Z91.048 Other nonmedicinal substance allergy status; Z68.41 Body mass index [BMI] 40.0-44.9, adult
CPT/HCPCS: 50590; 52332; 74018; 81025; C2617; J0330; J1100; J1170; J2001; J2250; J2370; J2405; J2704; J3490; J7120; U0002; J3010; Q9966

== ENCOUNTER 2020-05-04 20:07 | Emergency (ER) | payer MEDICARE ==
[2020-05-04] MEDS ORDERED: Sodium Chloride 0.9% 2.5 ML Syringe FLUSH PRN (20:21)
[2020-05-04] MEDS ORDERED: Sodium Chloride 0.9% 10 ML Syringe FLUSH PRN (20:21)
[2020-05-04] MEDS ORDERED: Sodium Chloride 0.9% 1,000 ML IV ONE (20:21)
[2020-05-04 20:53] LABS: BLOOD UREA NITROGEN,BUN 14 mg/dL (7.0-18.0); CARBON DIOXIDE,CO2 23.8 mmol/L (21.0-32.0); CHLORIDE,CL 101 mmol/L (98-107); GLUCOSE RANDOM 172 mg/dL (74-106); POTASSIUM,K 3.7 mmol/L (3.5-5.1); SODIUM,NA 135 mmol/L (136-145)
[2020-05-04] MEDS ORDERED: Ketorolac 30 MG/ML SDV IVPUSH ONE (21:17)
[2020-05-04] MEDS ORDERED: HYDROmorphone 1 MG/ML Syringe IVPUSH ONE (21:17)
[2020-05-04] MEDS ORDERED: Ondansetron 4 MG/2 ML SDV IVPUSH ONE (21:17)
--- NOTE | 2020-05-04 21:24 | CT ---
INDICATION: Right lower quadrant pain, history of nephrolithiasis TECHNIQUE: CT abdomen and pelvis without contrast. COMPARISON: KUB and CT abdomen from May 01, 2020 FINDINGS: Lower chest: Unremarkable. Liver: Unremarkable. Spleen: Unremarkable. Pancreas: Unremarkable. Gallbladder and bile ducts: S/p cholecystectomy. Adrenal glands: Unremarkable. Kidneys: A right double-J ureteral stent appears appropriate in position. Mild right hydronephrosis. There is a 5 mm stone in the distal right ureter, best seen on image 114 series 201. Few tiny renal stones in the right kidney measuring no more than 2 mm in size. There is no left-sided nephrolithiasis. GI tract: Unremarkable. Appendix is normal. Vascular structures: Unremarkable. Lymph nodes: Unremarkable. Miscellaneous: Unremarkable. No free air or significant free fluid. Pelvic Organs: Unremarkable. Bones: Unremarkable for age. IMPRESSION: Mild right hydronephrosis. Right double-J ureteral stent appears appropriate in position. 5 mm stone in the distal right ureter. Additional tiny stones in the right kidney. Status post cholecystectomy. Please note that all CT scans at this facility use dose modulation, iterative reconstruction, and/or weight-based dosing when appropriate to reduce radiation dose to as low as reasonably achievable. Dictated by Alicia Deleon MD @ May 04 2020 9:17PM Signed by Dr. Alicia Deleon @ May 04 2020 9:22PM
--- NOTE | 2020-05-04 21:44 | EDM.PDOC ---
ED HPI GENERAL MEDICAL PROBLEM - General Chief Complaint: Genitourinary Problem Stated Complaint: ABDOMINAL PAIN Time Seen by Provider: 05/04/20 20:20 - History of Present Illness INITIAL COMMENTS - FREE TEXT/NARRATIVE: HISTORY AND PHYSICAL: History of present illness: This is a 44-year-old female with a history significant for hypertension, diet- controlled diabetes, recent surgery for abdominal wall hernia repair x2, history of right kidney stone status post lithotripsy and stent placement last week by Dr. Matta, presents ER today secondary to persistent right-sided abdominal pain difficulty urinating. Patient reports that the pain is extremely typical of the pain that she had with her kidney stone ever since she had the lithotripsy. Patient reports that she was given a prescription for Toradol however the Toradol does not seem to be controlling her pain and discomfort. Patient denies any recent fevers, shakes, chills. Patient reports nausea and one episode of emesis with her pain. Patient denies any diarrhea. Patient denies any melena or bright red blood per rectum. Patient denies any hematemesis or coffee-ground emesis. Patient denies any dysuria, frequency, urgency but reports those feel discomfort when she urinates which she reports has been going on ever since she had a lithotripsy done. Patient reports that she has been able to tolerate p.o. solids and liquids fairly well. Patient denies any recent fevers, shakes, chills, cough, URI symptoms. Patient denies any Covid exposures or coronavirus concerns. Review of systems: As per history of present illness and below otherwise all systems reviewed and negative. MDM: Nurses notes reviewed and agree with PFSH, ROS, V/S. Any exceptions to agreement documented on physician record. Other than the symptoms associated with the present events, the following is reported with regard to recent health: General: (-) fever. HENT: (-) congestion. Respiratory: (-) cough. Cardiovascular:(-) chest pain. GI: (+) abdominal pain : (-) urinary complaints. Musculoskeletal: (-) other aches or pains. Endocrine: (-) generalized weakness. Neurological: (-) localized weakness. Psychiatric: (-)emotional stress Past medical history: As per history of present illness and as reviewed below otherwise noncontributory. Surgical history: As per history of present illness and as reviewed below otherwise noncontributory. Social history: No reported history of drug or alcohol abuse. Family history: As per history of present illness and as reviewed below otherwise noncontributory. Physical exam: Constitutional: Patient is oriented to person, place, and time. Appears well- developed and well-nourished. No distress. HEENT: Moist mucous membranes Head: Normocephalic and atraumatic Eyes: Right eye exhibits no discharge. Left eye exhibits no discharge. No scleral icterus Neck: Normal range of motion. No tracheal deviation present. Cardiovascular: Normal rate and regular rhythm. Pulmonary: Effort normal, no respiratory distress. Abd: Soft, nondistended, no rebound/guarding, no psoas or obturator signs, no tenderness at Mcberney's point, no Rosales's sign. Pt does not present with an exam that would be consistent with an acute surgical abdomen at this time. Positive tenderness palpation to her right flank and right lower quadrant region. Musculoskeletal: Normal range of motion Neurologic: Alert and oriented to person, place and time. Skin: [place], warm and dry. Psychiatric: Normal mood and affect. Behavior is normal. Judgment and thought content normal. Nursing note and vital signs have been reviewed Diagnostics: CT scan of the abdomen pelvis revealed a right double-J ureteral stent appears to be appropriate in position. There is mild right hydronephrosis. There is a 5 mm stone in the distal right ureter best seen on image 114. There are a few tiny renal stones in the right kidney measuring no more than 2 mm in size. There is no left-sided nephrolithiasis. GI tract is unremarkable with a normal appendix. Therapeutics: Patient will be given 1 L of normal saline solution wide open, Toradol 30 mg IV, Zofran 4 mg IV, Dilaudid 0.5 mg IV. Assessment and plan: This is a 44-year-old female who presents ER today complaining of abdominal pain status post recent lithotripsy with a double-J ureteral stent placement. Patient CT scan reveals mild right hydronephrosis with a 5 mm stone in the di stal right ureter. Patient has been given adequate analgesia here in the ED and feels much improved. Patient's urinalysis did not reveal any evidence of concern for UTI. At this time, the patient reports that she feels much improved with the pain medicines that were given to her here in the ED. Patient feels comfortable for discharge home and outpatient follow-up with Dr. Matta. Patient be discharged home with a prescription for Cohagen, Zofran. Patient will be instructed to continue taking her Toradol tablets. Reassessment at the time of disposition demonstrates that the patient is in no acute distress. The patient has remained stable throughout the entire ED visit and is without objective evidence for acute process requiring urgent intervention or hospitalization. The patient is stable for discharge, counseling is provided as documented above, discussed symptomatic treatment and specific conditions for return. I have spoken with the patient/caregiver and discussed todays findings, in addition to providing specific details for the plan of care. Questions are answered and there is agreement with the plan. Definitive disposition and diagnosis as appropriate pending reevaluation and review of above. RLQ Pain Score (Numeric/FACES): 7 - Related Data Allergies Allergy/AdvReac Type Severity Reaction Status Date / Time acetaminophen [From Cohagen] Allergy Hives Verified 05/04/20 20:10 aspirin Allergy Bleeding Verified 05/04/20 20:10 banana Allergy Hives Verified 05/04/20 20:10 hydrocodone [From Cohagen] Allergy Hives Verified 05/04/20 20:10 ibuprofen Allergy Bleeding Verified 05/04/20 20:10 latex Allergy Hives Verified 05/04/20 20:10 metformin Allergy Vomiting Verified 05/04/20 20:10 morphine Allergy Headache Verified 05/04/20 20:10 Penicillins Allergy Hives Verified 05/04/20 20:10 tape Allergy Hives Uncoded 05/04/20 20:10 Home Meds: Home Meds Dextroamphetamine/Amphetamine [Adderall] 30 mg PO BID 08/20/18 [History] Escitalopram Oxalate [Lexapro] 20 mg PO BEDTIME 08/20/18 [History] lamoTRIgine [Lamictal XR] 100 mg PO BEDTIME 08/20/18 [History] Losartan/Hydrochlorothiazide [Losartan-HCTZ 50-12.5 MG] 1 tab PO BEDTIME 08/22/19 [History] Acetaminophen [Tylenol Extra Strength] 2 tab PO ASDIRECTED PRN 04/29/20 [History] Acetaminophen/HYDROcodone [Cohagen 325-5 MG] 1 tab PO Q6H PRN #12 tablet 05/04/20 [Rx] Ondansetron [Zofran ODT] 4 mg PO Q6H PRN #12 tab.dis 05/04/20 [Rx] Past Medical History - Past Health History Medical/Surgical History: Denies Medical/Surgical History HEENT History: Reports: None Cardiovascular History: Reports: Hypertension Respiratory History: Reports: None Gastrointestinal History: Reports: GERD, GI Bleed Genitourinary History: Reports: UTI, Recurrent KEY HOLDER History: Reports: Musculoskeletal History: Reports: Fracture Other Musculoskeletal History: hx fx wrist and leg Neurological History: Reports: None Psychiatric History: Reports: Anxiety, Bipolar, Depression, PTSD Endocrine/Metabolic History: Reports: Diabetes, Type II, Obesity/BMI 30+ Hematologic History: Reports: Anemia, Blood Transfusion(s) Other Hematologic History: states she bleeds easily Immunologic History: Reports: None Oncologic (Cancer) History: Reports: None Dermatologic History: Reports: None - Infectious Disease History Infectious Disease History: Reports: Chicken Pox - Past Surgical History Head Surgeries/Procedures: Reports: None HEENT Surgical History: Reports: Tonsillectomy Cardiovascular Surgical History: Reports: None Respiratory Surgical History: Reports: None GI Surgical History: Reports: Hernia, Abdominal Female Surgical History: Reports: Tubal Ligation, Other (See Below) Other Female Surgeries/Procedures: ureteral dilation at the age of 5 Endocrine Surgical History: Reports: None Neurological Surgical History: Reports: None Musculoskeletal Surgical History: Reports: None Oncologic Surgical History: Reports: None Dermatological Surgical History: Reports: None Social & Family History - Family History Family Medical History: Noncontributory - Tobacco Use Tobacco Use Status *Q: Current Every Day Tobacco User Years of Tobacco use: 20 Packs/Tins Daily: 1 - Caffeine Use Caffeine Use: Reports: Coffee - Recreational Drug Use Recreational Drug Use: Yes Drug Use in Last 12 Months: No ED ROS GENERAL - Review of Systems Review Of Systems: See Below ED EXAM, GENERAL - Physical Exam Exam: See Below Course - Vital Signs Last Recorded V/S: Last Vital Signs Temp 97.1 F 05/04/20 20:11 Pulse 106 H 05/04/20 20:11 Resp 18 05/04/20 20:11 BP 174/108 H 05/04/20 20:11 Pulse Ox 94 L 05/04/20 20:11 - Orders/Labs/Meds Orders: Active Orders 24 hr Category Date Time Status CULTURE URINE [RM] Stat Lab 05/04/20 20:31 Received Sodium Chloride 0.9% [Saline Flush] Med 05/04/20 20:21 Active 10 ml FLUSH ASDIRECTED PRN Sodium Chloride 0.9% [Saline Flush] Med 05/04/20 20:21 Active 2.5 ml FLUSH ASDIRECTED PRN Saline Lock Insert [OM.PC] Stat Oth 05/04/20 20:21 Ordered Medication Orders Sodium Chloride (Saline Flush) 10 ml FLUSH ASDIRECTED PRN PRN Reason: Keep Vein Open Last Admin: 05/04/20 20:25 Dose: 10 ml Documented by: CINDY Sodium Chloride (Saline Flush) 2.5 ml FLUSH ASDIRECTED PRN PRN Reason: Keep Vein Open Last Admin: 05/04/20 20:25 Dose: 2.5 ml Documented by: CINDY Labs: Laboratory Tests 05/04/20 05/04/20 05/04/20 Range/Units 20:30 20:30 20:31 WBC 12.10 H (4.0-11.0) K/uL RBC 4.31 (4.30-5.90) M/uL Hgb 12.8 (12.0-16.0) g/dL Hct 39.1 (36.0-46.0) % MCV 90.7 (80.0-98.0) fL MCH 29.7 (27.0-32.0) pg MCHC 32.7 (31.0-37.0) g/dL RDW Std Deviation 45.8 (28.0-62.0) fl RDW Coeff of Clement 14 (11.0-15.0) % Plt Count 277 (150-400) K/uL MPV 10.70 (7.40-12.00) fL Neut % (Auto) 71.3 (48.0-80.0) % Lymph % (Auto) 20.2 (16.0-40.0) % [place] % (Auto) 5.7 (0.0-15.0) % Eos % (Auto) 2.6 (0.0-7.0) % Baso % (Auto) 0.2 (0.0-1.5) % Neut # (Auto) 8.6 H (1.4-5.7) K/uL Lymph # (Auto) 2.5 H (0.6-2.4) K/uL [place] # (Auto) 0.7 (0.0-0.8) K/uL Eos # (Auto) 0.3 (0.0-0.7) K/uL Baso # (Auto) 0.0 (0.0-0.1) K/uL Nucleated RBC % 0.0 /100WBC Nucleated RBCs # 0 K/uL Sodium 135 L (136-145) mmol/L Potassium 3.7 (3.5-5.1) mmol/L Chloride 101 (98-107) mmol/L Carbon Dioxide 23.8 (21.0-32.0) mmol/L BUN 14 (7.0-18.0) mg/dL Creatinine 1.0 (0.6-1.0) mg/dL Est Cr Clr Drug Dosing 56.78 mL/min Estimated GFR (MDRD) > 60.0 ml/min Glucose 172 H (74-106) mg/dL Calcium 8.7 (8.5-10.1) mg/dL Total Bilirubin 0.6 (0.2-1.0) mg/dL AST 12 L (15-37) IU/L ALT 24 (14-63) IU/L Alkaline Phosphatase 63 (46-116) U/L Total Protein 7.0 (6.4-8.2) g/dL Albumin 3.7 (3.4-5.0) g/dL Globulin 3.3 (2.6-4.0) g/dL Albumin/Globulin Ratio 1.1 (0.9-1.6) Urine Color RED Urine Appearance CLOUDY Urine pH 5.5 (5.0-8.0) Ur Specific [place] >= 1.030 (1.001-1.035) Urine Protein 100 H (NEGATIVE) mg/dL Urine Glucose (UA) NEGATIVE (NEGATIVE) mg/dL Urine Ketones 15 H (NEGATIVE) mg/dL Urine Occult Blood LARGE H (NEGATIVE) Urine Nitrite NEGATIVE (NEGATIVE) Urine Bilirubin SMALL H (NEGATIVE) Urine Ictotest NEGATIVE Urine Urobilinogen 0.2 (<2.0) EU/dL Ur Leukocyte Esterase SMALL H (NEGATIVE) Urine RBC TOO NUMEROUS TO CT H (0-2/HPF) Urine WBC 45-50 (0-5/HPF) Ur Epithelial Cells RARE (NONE-FEW) Urine Bacteria FEW (NEGATIVE) Urinalysis Comment Meds: Medications Generic Name Dose Route Start Last Admin Trade Name Frejulienne PRN Reason Stop Dose Admin Sodium Chloride 10 ml 05/04/20 20:21 05/04/20 20:25 Saline Flush FLUSH 10 ml ASDIRECTED PRN Administration Keep Vein Open Sodium Chloride 2.5 ml 05/04/20 20:21 05/04/20 20:25 Saline Flush FLUSH 2.5 ml ASDIRECTED PRN Administration Keep Vein Open Discontinued Medications Generic Name Dose Route Start Last Admin Trade Name Freq PRN Reason Stop Dose Admin Hydromorphone HCl 0.5 mg 05/04/20 21:17 05/04/20 21:22 Dilaudid IVPUSH 05/04/20 21:18 0.5 mg ONETIME ONE Administration Sodium Chloride 1,000 mls @ 999 mls/hr 05/04/20 20:21 05/04/20 20:25 Normal Saline IV 05/04/20 21:21 999 mls/hr .Bolus ONE Administration Ketorolac Tromethamine 30 mg 05/04/20 21:17 05/04/20 21:22 Toradol IVPUSH 05/04/20 21:18 30 mg ONETIME ONE Administration Ondansetron HCl 4 mg 05/04/20 21:17 05/04/20 21:22 Zofran IVPUSH 05/04/20 21:18 4 mg ONETIME ONE Administration Departure - Departure Time of Disposition: 21:46 Disposition: Home, Self-Care 01 Condition: Good Clinical Impression: Kidney stone, Renal colic on right side - Discharge Information Prescriptions: Acetaminophen/HYDROcodone [Cohagen 325-5 MG] 1 tab PO Q6H PRN #12 tablet PRN Reason: Pain Ondansetron [Zofran ODT] 4 mg PO Q6H PRN #12 tab.dis PRN Reason: Nausea Instructions: Renal Colic, [id number], Ureteral Stent Implantation, Care After Forms: ED Department Discharge Additional Instructions: You have been seen and evaluated in the ER today secondary to the pain on the right side. The pain to your right side is likely secondary to passing of the stones were broken up during her lithotripsy. Your CT scan shows that your stent is in good placement. There is some mild swelling to your kidney which is common after this procedure. Please follow-up with Dr. Matta as scheduled. You will be given a prescription for Cohagen to take 1 tablet every 6 hours as needed as well as Zofran 1 tablet every 6 hours as needed for nausea. Please continue taking the Toradol that was prescribed to you by Dr. Matta. The following information is given to patients seen in the emergency department who are being discharged to home. This information is to outline your options for follow-up care. We provide all patients seen in our emergency department with a follow-up referral. The need for follow-up, as well as the timing and circumstances, are variable depending upon the specifics of your emergency department visit. If you don't have a primary care physician on staff, we will provide you with a referral. We always advise you to contact your personal physician following an emergency department visit to inform them of the circumstance of the visit and for follow-up with them and/or the need for any referrals to a consulting specialist. The emergency department will also refer you to a specialist when appropriate. This referral assures that you have the opportunity for follow-up care with a specialist. All of these measure are taken in an effort to provide you with optimal care, which includes your follow-up. Under all circumstances we always encourage you to contact your private physician who remains a resource for coordinating your care. When calling for follow-up care, please make the office aware that this follow-up is from your recent emergency room visit. If for any reason you are refused follow-up, please contact the [facility] Emergency Department at and asked to speak to the emergency department charge nurse. Sepsis Event Note (ED) - Evaluation Sepsis Screening Result: No Definite Risk - Focused Exam Vital Signs: Vital Signs Temp Pulse Resp BP Pulse Ox 05/04/20 20:11 97.1 F 106 H 18 174/108 H 94 L - My Orders Last 24 Hours: My Active Orders 05/04/20 20:21 Sodium Chloride 0.9% [Saline Flush] 10 ml FLUSH ASDIRECTED PRN Sodium Chloride 0.9% [Saline Flush] 2.5 ml FLUSH ASDIRECTED PRN Saline Lock Insert [OM.PC] Stat - Assessment/Plan Last 24 Hours: My Active Orders 05/04/20 20:21 Sodium Chloride 0.9% [Saline Flush] 10 ml FLUSH ASDIRECTED PRN Sodium Chloride 0.9% [Saline Flush] 2.5 ml FLUSH ASDIRECTED PRN Saline Lock Insert [OM.PC] Stat
== END 2020-05-04 22:08 | disposition home or self-care (01) ==
LOC: MW.ED 20:07
DX: N13.2 Hydronephrosis with renal and ureteral calculous obstruction (principal); I10 Essential (primary) hypertension; E11.9 Type 2 diabetes mellitus without complications; F41.9 Anxiety disorder, unspecified; F31.9 Bipolar disorder, unspecified; E66.9 Obesity, unspecified; F17.210 Nicotine dependence, cigarettes, uncomplicated; Z68.41 Body mass index [BMI] 40.0-44.9, adult; Z79.899 Other long term (current) drug therapy; Z88.6 Allergy status to analgesic agent; Z91.018 Allergy to other foods; Z91.040 Latex allergy status; Z88.8 Allergy status to other drugs, medicaments and biological substances; Z88.0 Allergy status to penicillin
CPT/HCPCS: 36415; 74176; 80053; 81001; 85025; 87086; 96374; 96375; 99285; J1170; J1885; J2405; J7030; 99284

== ENCOUNTER 2020-05-05 06:24 | Emergency (ER) | payer MEDICARE ==
[2020-05-05] MEDS ORDERED: Ondansetron 4 MG/2 ML SDV IVPUSH ONE (06:36)
[2020-05-05] MEDS ORDERED: HYDROmorphone 1 MG/ML Syringe IVPUSH ONE ×2 (06:36→07:10)
[2020-05-05] MEDS ORDERED: Ketorolac 15 MG/ML SDV IVPUSH ONE (06:36)
[2020-05-05] MEDS ORDERED: Sodium Chloride 0.9% 10 ML Syringe FLUSH PRN (06:36)
[2020-05-05] MEDS ORDERED: Sodium Chloride 0.9% 1,000 ML IV ONE (06:36)
[2020-05-05] MEDS ORDERED: Sodium Chloride 0.9% 2.5 ML Syringe FLUSH PRN (06:36)
--- NOTE | 2020-05-05 06:50 | EDM.PDOC ---
<Liban Zafar - Last Filed: 05/05/20 06:40> ED HPI GENERAL MEDICAL PROBLEM - General Chief Complaint: Genitourinary Problem Stated Complaint: KIDNEY STONES; FLANK PAIN Time Seen by Provider: 05/05/20 07:00 - History of Present Illness INITIAL COMMENTS - FREE TEXT/NARRATIVE: HISTORY AND PHYSICAL: History of present illness: This is a 44-year-old female with a history significant for diabetes, currently not prescribed any medicines for it, renal stones, status post abdominal hernia repair who presents the ER today complaining of severe pain to her right lower quadrant. Patient was seen here in the ER yesterday evening by myself for the same pain. At that time she had labs drawn including a CBC, CMP, urinalysis which were all unremarkable. Patient had a CT scan of her abdomen pelvis performed last night. Patient CT last night revealed a right double-J ureteral stent that appeared to be appropriately in position. Patient had mild right hydronephrosis. There was a 5 mm stone in the distal right ureter. There are few tiny stones in the right kidney that measured no more than 2 mm in size. There is no left-sided nephrolithiasis. The remainder of her CT scan of her abdomen pelvis were unremarkable. While in the ER last night, the patient was given adequate analgesia and was stable for discharge to home and was instructed to continue her p.o. Toradol that was prescribed to her by Dr. Matta and was added Zofran as well as [place] to assist her with her pain until she could follow-up with Dr. Matta. Patient reports that the pharmacies were closed last night and she was not able to get her medications filled and unfortunately Dr. Matta is away on vacation for 3 weeks. Patient reports that earlier this morning the pain started to recur and became intolerable so she called 911 for transfer to the ER for assistance with her pain. Patient denies any recent fevers, shakes, chills. Patient reports nausea with dry heaving secondary to her pain. Patient has any diarrhea. Patient reports that she has pelvic pressure and the sensation that she needs to urinate. Patient denies any cough cold or runny nose. Patient denies any pain to her chest or shortness of breath. Of note, patient has had multiple ER visits for abdominal pain which was evaluated by Dr. Matta. Prior to her lithotripsy that was performed several days ago, patient CT scan of her abdomen pelvis revealed a large 2 x 1 cm stone in the right renal pelvis that has been stable. Patient's CT scan from April 19 revealed no evidence of hydronephrosis and on her prior CT scans of her abdomen pelvis no evidence of hydronephrosis had been identified. Secondary to the persistent episodes of right-sided pain, patient was referred to Dr. Matta and lithotripsy was performed and a double-J ureteral stent was placed last week. Patient reports that she was discharged home with a prescription for Toradol by Dr. Matta but the prescription for Toradol does not manage her pain adequately. She reports that Dr. Matta is on vacation and will not be back for another 3 weeks[address] Patient's repeat CT scan yesterday night, which is of her CT scan since her procedure, revealed that she does have a 5 mm stone in her distal ureter with a mild amount of right-sided hydronephrosis. Review of systems: As per history of present illness and below otherwise all systems reviewed and negative. Past medical history: As per history of present illness and as reviewed below otherwise noncontributory. Surgical history: As per history of present illness and as reviewed below otherwise noncontributory. Social history: No reported history of drug or alcohol abuse. Family history: As per history of present illness and as reviewed below otherwise noncontributory. Physical exam: Constitutional: Patient is oriented to person, place, and time. Appears well- developed and well-nourished. Patient appears to be in moderate amount of discomfort in the [place] with multiple episodes of dry retching and moaning secondary to pain and discomfort. HEENT: Moist mucous membranes Head: Normocephalic and atraumatic Eyes: Right eye exhibits no discharge. Left eye exhibits no discharge. No scleral icterus Neck: Normal range of motion. No tracheal deviation present. Cardiovascular: Normal rate and regular rhythm. Pulmonary: Effort normal, no respiratory distress. Abd: Soft, nondistended, no rebound/guarding, no psoas or obturator signs, no tenderness at Mcberney's point, no Rosales's sign. Pt does not present with an exam that would be consistent with an acute surgical abdomen at this time, tenderness to palpation right lower abdomen and right flank. Musculoskeletal: Normal range of motion Neurologic: Alert and oriented to person, place and time. Skin: [place], warm and dry. Psychiatric: Normal mood and affect. Behavior is normal. Judgment and thought content normal. Nursing note and vital signs have been reviewed Diagnostics: CBC, CMP, urinalysis Therapeutics: Toradol 15 mg IV, Dilaudid 0.5 mg IV, Zofran 4 mg IV NSS wide open x1 L Assessment and plan: This is a 44-year-old female who presents ER today secondary to pain to her right flank and right lower quadrant that appears to be most likely secondary to her kidney stones. Patient had a recent lithotripsy and ureteral stent placement last week. Patient's CT scan of the abdomen pelvis within the last 12 hours did reveal that she had a mild right hydronephrosis and a 5 mm distal ureteral stone. Patient will be given IV fluids and analgesia in the ED. Patient will have repeat labs and urinalysis performed in ED. 7 AM care signed out to Dr. Mathews Definitive disposition and diagnosis as appropriate pending reevaluation and review of above. flank pain Pain Score (Numeric/FACES): 10 - Related Data Allergies Allergy/AdvReac Type Severity Reaction Status Date / Time acetaminophen [From [place]] Allergy Hives Verified 05/05/20 06:37 aspirin Allergy Bleeding Verified 05/05/20 06:37 banana Allergy Hives Verified 05/05/20 06:37 hydrocodone [From [place]] Allergy Hives Verified 05/05/20 06:37 ibuprofen Allergy Bleeding Verified 05/05/20 06:37 latex Allergy Hives Verified 05/05/20 06:37 metformin Allergy Vomiting Verified 05/05/20 06:37 morphine Allergy Headache Verified 05/05/20 06:37 Penicillins Allergy Hives Verified 05/05/20 06:37 tape Allergy Hives Uncoded 05/05/20 06:37 Home Meds: Home Meds Dextroamphetamine/Amphetamine [Adderall] 30 mg PO BID 08/20/18 [History] Escitalopram Oxalate [Lexapro] 20 mg PO BEDTIME 08/20/18 [History] lamoTRIgine [Lamictal XR] 100 mg PO BEDTIME 08/20/18 [History] Losartan/Hydrochlorothiazide [Losartan-HCTZ 50-12.5 MG] 1 tab PO BEDTIME 08/22/19 [History] Acetaminophen [Tylenol Extra Strength] 2 tab PO ASDIRECTED PRN 04/29/20 [History] Acetaminophen/HYDROcodone [[place] 325-5 MG] 1 tab PO Q6H PRN #12 tablet 05/04/20 [Rx] Ondansetron [Zofran ODT] 4 mg PO Q6H PRN #12 tab.dis 05/04/20 [Rx] Past Medical History - Past Health History Medical/Surgical History: Denies Medical/Surgical History HEENT History: Reports: None Cardiovascular History: Reports: Hypertension Respiratory History: Reports: None Gastrointestinal History: Reports: GERD, GI Bleed Genitourinary History: Reports: UTI, Recurrent [employer] History: Reports: Musculoskeletal History: Reports: Fracture Other Musculoskeletal History: hx fx wrist and leg Neurological History: Reports: None Psychiatric History: Reports: Anxiety, Bipolar, Depression, PTSD Endocrine/Metabolic History: Reports: Diabetes, Type II, Obesity/BMI 30+ Hematologic History: Reports: Anemia, Blood Transfusion(s) Other Hematologic History: states she bleeds easily Immunologic History: Reports: None Oncologic (Cancer) History: Reports: None Dermatologic History: Reports: None - Infectious Disease History Infectious Disease History: Reports: Chicken Pox - Past Surgical History Head Surgeries/Procedures: Reports: None HEENT Surgical History: Reports: Tonsillectomy Cardiovascular Surgical History: Reports: None Respiratory Surgical History: Reports: None GI Surgical History: Reports: Hernia, Abdominal Female Surgical History: Reports: Tubal Ligation, Other (See Below) Other Female Surgeries/Procedures: ureteral dilation at the age of 5 Endocrine Surgical History: Reports: None Neurological Surgical History: Reports: None Musculoskeletal Surgical History: Reports: None Oncologic Surgical History: Reports: None Dermatological Surgical History: Reports: None Social & Family History - Family History Family Medical History: Noncontributory - Caffeine Use Caffeine Use: Reports: Coffee ED ROS GENERAL - Review of Systems Review Of Systems: See Below ED EXAM, GENERAL - Physical Exam Exam: See Below Departure - Departure Disposition: Home, Self-Care 01 Clinical Impression: Kidney stone - Discharge Information Instructions: Kidney Stones Referrals: PCP,None [Primary Care Provider] - Forms: ED Department Discharge Additional Instructions: Your urologist is out of town for the next few weeks. If you need to urgently see a urologist, [facility] does have urologists available. Their contact information is: [address] [place] [address] The following information is given to patients seen in the emergency department who are being discharged to home. This information is to outline your options for follow-up care. We provide all patients seen in our emergency department with a follow-up referral. The need for follow-up, as well as the timing and circumstances, are variable depending upon the specifics of your emergency department visit. If you don't have a primary care physician on staff, we will provide you with a referral. We always advise you to contact your personal physician following an emergency department visit to inform them of the circumstance of the visit and for follow-up with them and/or the need for any referrals to a consulting specialist. The emergency department will also refer you to a specialist when appropriate. This referral assures that you have the opportunity for follow-up care with a specialist. All of these measure are taken in an effort to provide you with optimal care, which includes your follow-up. Under all circumstances we always encourage you to contact your private physician who remains a resource for coordinating your care. When calling for follow-up care, please make the office aware that this follow-up is from your recent emergency room visit. If for any reason you are refused follow-up, please contact the [facility] Emergency Department at and asked to speak to the emergency department charge nurse. Please follow up with your primary care physician. If you do not have a primary care physician, see below: [facility] [address] [place] [id number] [facility] [address] [place] [id number] Sepsis Event Note (ED) - Evaluation Sepsis Screening Result: No Definite Risk <Kalin Mathews - Last Filed: 05/05/20 09:01> ED HPI GENERAL MEDICAL PROBLEM - General Source of Information: Reports: Patient Course - Vital Signs Last Recorded V/S: Last Vital Signs Temp 96.8 F L 05/05/20 06:27 Pulse 103 H 05/05/20 06:27 Resp 20 05/05/20 06:27 BP 155/129 H 05/05/20 06:27 Pulse Ox 96 05/05/20 06:27 - Orders/Labs/Meds Orders: Active Orders 24 hr Category Date Time Status Sodium Chloride 0.9% [Saline Flush] Med 05/05/20 06:36 Active 10 ml FLUSH ASDIRECTED PRN Sodium Chloride 0.9% [Saline Flush] Med 05/05/20 06:36 Active 2.5 ml FLUSH ASDIRECTED PRN Saline Lock Insert [OM.PC] Stat Oth 05/05/20 06:37 Ordered Medication Orders Sodium Chloride (Saline Flush) 10 ml FLUSH ASDIRECTED PRN PRN Reason: Keep Vein Open Last Admin: 05/05/20 06:46 Dose: 10 ml Documented by: [id number] Sodium Chloride (Saline Flush) 2.5 ml FLUSH ASDIRECTED PRN PRN Reason: Keep Vein Open Last Admin: 05/05/20 06:47 Dose: 2.5 ml Documented by: [email or web address] Labs: Laboratory Tests 05/05/20 05/05/20 Range/Units 06:42 06:42 WBC 12.50 H (4.0-11.0) K/uL RBC 4.35 (4.30-5.90) M/uL Hgb 13.0 (12.0-16.0) g/dL Hct 39.6 (36.0-46.0) % MCV 91.0 (80.0-98.0) fL MCH 29.9 (27.0-32.0) pg MCHC 32.8 (31.0-37.0) g/dL RDW Std Deviation 45.3 (28.0-62.0) fl RDW Coeff of Clement 14 (11.0-15.0) % Plt Count 282 (150-400) K/uL MPV 10.80 (7.40-12.00) fL Neut % (Auto) 69.0 (48.0-80.0) % Lymph % (Auto) 20.1 (16.0-40.0) % [place] % (Auto) 7.0 (0.0-15.0) % Eos % (Auto) 3.7 (0.0-7.0) % Baso % (Auto) 0.2 (0.0-1.5) % Neut # (Auto) 8.6 H (1.4-5.7) K/uL Lymph # (Auto) 2.5 H (0.6-2.4) K/uL [place] # (Auto) 0.9 H (0.0-0.8) K/uL Eos # (Auto) 0.5 (0.0-0.7) K/uL Baso # (Auto) 0.0 (0.0-0.1) K/uL Nucleated RBC % 0.0 /100WBC Nucleated RBCs # 0 K/uL Sodium 136 (136-145) mmol/L Potassium 3.7 (3.5-5.1) mmol/L Chloride 101 (98-107) mmol/L Carbon Dioxide 22.7 (21.0-32.0) mmol/L BUN 14 (7.0-18.0) mg/dL Creatinine 1.1 H (0.6-1.0) mg/dL Est Cr Clr Drug Dosing 51.62 mL/min Estimated GFR (MDRD) 54.0 ml/min Glucose 177 H (74-106) mg/dL Calcium 8.4 L (8.5-10.1) mg/dL Total Bilirubin 0.8 (0.2-1.0) mg/dL AST 16 (15-37) IU/L ALT 25 (14-63) IU/L Alkaline Phosphatase 64 (46-116) U/L Total Protein 7.0 (6.4-8.2) g/dL Albumin 3.8 (3.4-5.0) g/dL Globulin 3.2 (2.6-4.0) g/dL Albumin/Globulin Ratio 1.2 (0.9-1.6) Meds: Medications Generic Name Dose Route Start Last Admin Trade Name Freq PRN Reason Stop Dose Admin Sodium Chloride 10 ml 05/05/20 06:36 05/05/20 06:46 Saline Flush FLUSH 10 ml ASDIRECTED PRN Administration Keep Vein Open Sodium Chloride 2.5 ml 05/05/20 06:36 05/05/20 06:47 Saline Flush FLUSH 2.5 ml ASDIRECTED PRN Administration Keep Vein Open Discontinued Medications Generic Name Dose Route Start Last Admin Trade Name Freq PRN Reason Stop Dose Admin Hydromorphone HCl 0.5 mg 05/05/20 06:36 05/05/20 06:46 Dilaudid IVPUSH 05/05/20 06:37 0.5 mg ONETIME ONE Administration Hydromorphone HCl 1 mg 05/05/20 07:10 05/05/20 07:20 Dilaudid IVPUSH 05/05/20 07:11 1 mg ONETIME ONE Administration Sodium Chloride 1,000 mls @ 999 mls/hr 05/05/20 06:36 05/05/20 06:45 Normal Saline IV 05/05/20 07:36 999 mls/hr .Bolus ONE Administration Ketorolac Tromethamine 15 mg 05/05/20 06:36 05/05/20 06:45 Toradol IVPUSH 05/05/20 06:37 15 mg ONETIME ONE Administration Ondansetron HCl 4 mg 05/05/20 06:36 05/05/20 06:45 Zofran IVPUSH 05/05/20 06:37 4 mg ONETIME ONE Administration - Re-Assessments/Exams Free Text/Narrative Re-Assessment/Exam: 05/05/20 07:10 Patient care transition from physician pending labs and pain reassessment. On exam patient is moaning and stating that her pain is not relieved after first round of analgesia. 1 mg Dilaudid ordered. We will follow up labs, reassessment and disposition accordingly. 05/05/20 09:01 Patient's pain under control at this time. Will discharge patient home, she has a prescription for [place] and Zofran at the pharmacy. Return precautions were discussed, and patient understands and agrees with plan. Urology follow-up with [facility] was given to patient as her urologist is out of town for the next few weeks. Departure - Departure Time of Disposition: 09:01 Condition: Good Sepsis Event Note (ED) - Focused Exam Vital Signs: Vital Signs Temp Pulse Resp BP Pulse Ox 05/05/20 06:27 96.8 F L 103 H 20 155/129 H 96
[2020-05-05 07:03] LABS: CARBON DIOXIDE,CO2 22.7 mmol/L (21.0-32.0); POTASSIUM,K 3.7 mmol/L (3.5-5.1)
== END 2020-05-05 09:15 | disposition home or self-care (01) ==
LOC: MW.ED 06:24
DX: N20.0 Calculus of kidney (principal); I10 Essential (primary) hypertension; F31.9 Bipolar disorder, unspecified; F41.9 Anxiety disorder, unspecified; E11.9 Type 2 diabetes mellitus without complications; E66.9 Obesity, unspecified; Z79.899 Other long term (current) drug therapy; Z68.41 Body mass index [BMI] 40.0-44.9, adult; Z88.6 Allergy status to analgesic agent; Z88.5 Allergy status to narcotic agent; Z88.8 Allergy status to other drugs, medicaments and biological substances; Z88.0 Allergy status to penicillin; Z91.048 Other nonmedicinal substance allergy status; Z91.018 Allergy to other foods; Z91.040 Latex allergy status
CPT/HCPCS: 36415; 80053; 81001; 85025; 96374; 96375; 96376; 99284; J1170; J1885; J2405; J7030